=== PATIENT | male | born 1950 | race Caucasian/White ===

== ENCOUNTER 2024-11-13 14:47 | Inpatient (IN) ==
[2024-11-13 15:13] LABS: Basophils # (auto) 0.06 K/uL (0.00-0.20); Basophils % (auto) 0.3 %; Hematocrit (blood only) 24.8 % (42.0-52.0); Hemoglobin 7.5 g/dl (14.0-18.0); Immature Granulocytes # (auto) 0.26 K/uL (0.01-0.20); Immature Granulocytes % (auto) 1.3 %; Lymphocytes # (auto) 0.98 K/uL (1.20-3.40); Lymphocytes % (auto) 4.7 %; Mean Corpuscular Hgb Conc 30.2 g/dL (32.0-36.0); Mean Corpuscular Volume 82.7 fL (80.0-100.0); Mean Platelet Volume 11.1 fL (9.4-12.4); Monocytes # (auto) 1.07 K/uL (0.11-0.59); Monocytes % (auto) 5.2 %; Neutrophils # (auto) 18.08 K/uL (1.40-6.50); Neutrophils % (auto) 87.5 %; Platelet Count 234 K/uL (130-400); RDW Coefficient of Variation 17.2 % (11.5-14.5); RDW Standard Deviation 49.5 fL (36.4-46.3); White Blood Count 20.65 K/ul (4.8-10.8)
[2024-11-13 15:31] LABS: Albumin Globulin Ratio 1.4 (0.9-2); Albumin Level 3.4 gm/dl (3.4-5.0); BUN Creatinine Ratio 33.3 (10-20); Bilirubin,Total 0.7 mg/dl (0.2-1.0); Calcium 8.5 mg/dl (8.6-10.3); Creatinine Clr Calc Pharmacy 88.4 ml/min; Globulin 2.5 gm/dl (2.5-4.0); Potassium 4.2 mmol/L (3.5-5.1); Total Protein 5.9 gm/dl (6.0-8.3)
[2024-11-13 15:37] LABS: Troponin I High Sensitivity 11.3 pg/ml (0-20)
--- NOTE | 2024-11-13 15:44 | Emergency Department Note ---
ED DC CONDITION Conditon at Discharge Condition at Discharge: Fair Impression & Plan Anemia, Pancreatic mass, Liver mass, Acute thrombosis of basilic vein, Weakness ED Provider Note Provider: Logan Hitchcock MD CHIEF COMPLAINT: Referred by HISTORY OF PRESENT ILLNESS: Patient is a 74-year-old gentleman history of type 2 diabetes, CAD with stents, hypertension, recent hospitalization referred here by his doctor for further evaluation. Patient last week when he noticed some worsening shortness of breath. Went to [facility] found to be severely anemic hemoglobin 6 and transfused 2 units of blood. Sent to [facility] for further testing as he was additionally found to have liver mets and a pancreatic mass. No biopsy or treatment is started for this. Outpatient doctor over the last several days has been working to get outpatient biopsy as well as a PET scan ordered. Patient states that he has had some increasing weakness particular today and his legs feel a bit " ". Denies any chest pain or syncope or trauma. Denies abdominal pain. Is on baby aspirin every evening. Noted some soreness in his right arm after IV placement during recent hospitalization had ultrasound last night showing concerns for a blood clot in the basilic vein. Was ordered Lovenox but is not taking that and additionally has not taken any antibiotics. Denies fever. Sent here with concerns for need for anticoagulation with his worsening anemia and mass workup. PAST MEDICAL HISTORY: As noted above MEDICATIONS: Reviewed home medications SOCIAL HISTORY: PHYSICAL EXAM: GENERAL: alert and oriented in no acute distress on stretcher at bedside patient appears slightly fatigued Head: normocephalic and atraumatic EYES: No injection, discharge or icterus. EOMI. NECK: Trachea midline. ENT: Mucous membranes pink and moist. LUNGS: Airway patent. No retraction or tachypnea HEART: Regular rate and rhythm. No chest wall tenderness ABDOMEN: Soft and non-tender, without guarding or rebound. SKIN: Acyanotic, warm, dry, without rashes EXTREMITIES: Without swelling, tenderness or deformity NEUROLOGICAL: No focal deficits. No aphasia. No facial droop or slurred speech. Ambulatory. EK bpm. Normal sinus rhythm with a right bundle branch block. Little artifact but no clear acute ST segment elevation or depression QTc 493. CONTINUOUS CARDIAC MONITORING: was ordered and showed a heart rate of 60s to 80s bpm in sinus rhythm right bundle branch block Patient's laboratory studies and imaging reviewed. Differential includes Infection, GI bleed, oncological process, dehydration, metabolic abnormality, hypo/hyperglycemia, electrolyte disturbance, anemia, hypoxia, cardiac sources, neurologic, as well as other pathologies. IMPRESSION/MEDICAL DECISION MAKING: Patient appears little bit fatigued but not in any distress. Vitals noted without severe abnormality. Denies any significant black or bloody stools but maybe a bit dark. Has been on iron supplementation. Reviewed prior epic notes with assistance of case management. Patient with the large superficial vein thrombus recommended for anticoagulation but obvious concerns given his recent need for transfusion. Repeat blood count here does show slightly worse anemia 7.5 today with recent hemoglobin of 8 yesterday. Patient declined rectal exam. No vomiting reported. Denies significant abdominal pain. Review of notes indicate he has a pancreatic mass with portal vein thrombus as well as liver mets. They have been trying to get him outpatient IR biopsy of the liver either here on the or [facility] the end of this week. Patient consented for blood transfusion. Discussed the patient findings. Discussed with pharmacy here and will start on low-dose no bolus heparin drip for some mild anticoagulation given the superficial thrombus finding would be careful avoid aggressive anticoagulation in case there is some component of GI bleed. States he has no occult normal colonoscopies in the past. Denies significant heartburn but given a dose of Protonix here. 1 Unit of packed red blood cells ordered given his cardiac history and symptomatic anemia with fatigue symptoms. Did reach out discussed with radiology Dr. Kennedy who states they would need to fully review the case; his recent aspirin usage as this could pose some delay. Again the heparin will be started and could be turned off if needed. Discussed with the hospitalist team who is in agreement this plan. DIAGNOSIS: Anemia, pancreatic/liver masses, right basilic vein thrombus, weakness DISPOSITION: Hospitalist will evaluate Critical Care I have personally spent 45 minutes of critical care time in the direct management of this patient. This includes bedside care, interpretation of diagnostic studies, and testing, discussion with consultants, patient, and family members, and other required patient management activities. These 45 minutes is in excess of all separately billable procedures. Past Med/Surg History Problem List (Updated 11/13/24 @ 17:59 by Logan Hitchcock M.D.) Weakness (Acute) Acute thrombosis of basilic vein (Acute) Deep vein thrombosis (DVT) of right upper extremity Anemia (Acute) Liver mass (Acute) Pancreatic mass (Acute) Hypertension Coronary artery disease Dyslipidemia Type 2 diabetes mellitus Medical History (Updated 11/13/24 @ 17:59 by Logan Hitchcock M.D.) Myocardial infarction 12/16/2017 Surgical History (Updated 11/13/24 @ 17:28 by ADIEL Serrano) H/O colonoscopy 2014, 2019, 2022 History of coronary angioplasty with insertion of stent 08/12/2010 Family History (Updated 11/13/24 @ 17:28 by ADIEL Serrano) Father Cancer Mother Cancer Social History (Updated 11/13/24 @ 17:57 by ADIEL Serrano) Smoking Status: Never smoker Hx Alcohol Use: Yes Hx Substance Use: No Preferred Language: Setswana Current Living Situation: Spouse Feels Safe at Home: Yes Allergies Allergies Allergy/AdvReac Type Severity Reaction Status Date / Time metformin AdvReac Severe SEVERE Verified 11/13/24 17:04 DIARRHEA Home Meds Home Medications Medication Instructions Recorded Confirmed amlodipine 5 mg tablet 5 mg PO 11/13/24 11/13/24 aspirin 81 mg tablet,delayed 81 mg PO 11/13/24 11/13/24 release (Ecotrin Low Strength) atorvastatin 80 mg tablet 80 mg PO 11/13/24 11/13/24 cephalexin 500 mg capsule 500 mg PO TID 11/13/24 11/13/24 empagliflozin 25 mg tablet 25 mg PO 11/13/24 11/13/24 (Jardiance) ferrous sulfate 325 mg (65 mg 325 mg PO [facility] 11/13/24 11/13/24 iron) tablet insulin glargine-yfgn 100 unit/mL 18 unit subcut [facility] 11/13/24 11/13/24 (3 mL) subcutaneous pen isosorbide mononitrate 30 mg 30 mg PO [facility] 11/13/24 11/13/24 tablet,extended release 24 hr losartan 100 mg tablet 100 mg PO [facility] 11/13/24 11/13/24 metoprolol succinate 25 mg 12.5 mg PO [facility] 11/13/24 11/13/24 tablet,extended release 24 hr nitroglycerin 0.4 mg sublingual 0.4 mg sublingual DIRECTED PRN 11/13/24 11/13/24 tablet (Nitrostat) Chest Pain repaglinide 2 mg tablet 4 mg PO AC 11/13/24 11/13/24 Results & Data (ED) Vital Signs Vital Signs - 24 hr 11/13/24 14:49 11/13/24 15:15 11/13/24 15:15 Temperature 36.5 C Temperature Source Temporal Artery Scan Pulse Rate 85 Pulse Rate [Apical] Pulse Rhythm Pulse Strength Normal Respiratory Rate 17 Respiratory Effort / Characteristics Non-Labored Spontaneous Respiratory Depth Normal Respiratory Pattern Regular Blood Pressure 128/72 Blood Pressure [Right Arm] Blood Pressure Mean 90 Blood Pressure Mean [Right Arm] Blood Pressure Position Sitting Blood Pressure Position [Right Arm] Pulse Oximetry 100 Oxygen Delivery Method Room Air Room Air Room Air Sepsis Recent Fever Within 48 Hours No Sepsis New/Unexplained Change in Mental Status No Sepsis Action Taken by Nursing No Action Required 11/13/24 15:31 11/13/24 16:48 11/13/24 18:00 Temperature Temperature Source Pulse Rate 82 Pulse Rate [Apical] 68 69 Pulse Rhythm Pulse Strength Respiratory Rate 18 19 Respiratory Effort / Characteristics Respiratory Depth Respiratory Pattern Blood Pressure Blood Pressure [Right Arm] 128/68 129/66 Blood Pressure Mean Blood Pressure Mean [Right Arm] 88 87 Blood Pressure Position Blood Pressure Position [Right Arm] Semi-fowlers Pulse Oximetry 98 98 Oxygen Delivery Method Room Air Sepsis Recent Fever Within 48 Hours Sepsis New/Unexplained Change in Mental Status Sepsis Action Taken by Nursing 11/13/24 18:29 11/13/24 18:45 11/13/24 19:00 Temperature 36.9 C 36.8 C 36.8 C Temperature Source Oral Oral Oral Pulse Rate 71 70 79 Pulse Rate [Apical] Pulse Rhythm Regular Pulse Strength Normal Respiratory Rate 22 14 19 Respiratory Effort / Characteristics Respiratory Depth Respiratory Pattern Blood Pressure 136/68 133/88 126/58 L Blood Pressure [Right Arm] Blood Pressure Mean 90 103 80 Blood Pressure Mean [Right Arm] Blood Pressure Position Semi-fowlers Sitting Blood Pressure Position [Right Arm] Pulse Oximetry 97 100 98 Oxygen Delivery Method Sepsis Recent Fever Within 48 Hours Sepsis New/Unexplained Change in Mental Status Sepsis Action Taken by Nursing Laboratory Data 11/13/24 15:00 11/13/24 15:00 Lab Results 11/13/24 11/13/24 11/13/24 Range/Units 15:00 16:24 16:49 WBC 20.65 H (4.8-10.8) K/ul RBC 3.00 L (4.70-6.10) M/uL Hgb 7.5 L (14.0-18.0) g/dl Hct 24.8 L (42.0-52.0) % MCV 82.7 (80.0-100.0) fL MCH 25.0 (25.0-34.0) pg MCHC 30.2 L (32.0-36.0) g/dL RDW Std Deviation 49.5 H (36.4-46.3) fL RDW Coeff of Sascha 17.2 H (11.5-14.5) % Plt Count 234 (130-400) K/uL MPV 11.1 (9.4-12.4) fL Immature Gran % (Auto) 1.3 % Neut % (Auto) 87.5 % Lymph % (Auto) 4.7 % [place] % (Auto) 5.2 % Eos % (Auto) 1.0 % Baso % (Auto) 0.3 % Neut # (Auto) 18.08 H (1.40-6.50) K/uL Lymph # (Auto) 0.98 L (1.20-3.40) K/uL [place] # (Auto) 1.07 H (0.11-0.59) K/uL Eos # (Auto) 0.20 (0.00-0.50) K/uL Baso # (Auto) 0.06 (0.00-0.20) K/uL Immature Gran # (Auto) 0.26 H (0.01-0.20) K/uL Polychromasia 2+ Anisocytosis Present PT 11.3 (9.0-12.0) Seconds INR 1.0 (0.9-1.1) APTT 24 (21-31) Seconds PTT Ratio 0.9 Sodium 133 L (136-145) mmol/L Potassium 4.2 (3.5-5.1) mmol/L Chloride 102 (98-107) mmol/L Carbon Dioxide 21 (21-32) mmol/L Anion Gap 10 (3-11) BUN 26 H (6-23) mg/dl Creatinine 0.78 (0.6-1.4) mg/dl Est Cr Clr Drug Dosing 88.4 ml/min eGFR 94.75 BUN/Creatinine Ratio 33.3 H (10-20) Glucose 243 H (70-99(Fasting)) mg/dl POC Glucose (70-99) mg/dl Calcium 8.5 L (8.6-10.3) mg/dl Iron 24 L (35-175) mcg/dl TIBC 333 (250-450) mcg/dl Transferrin 238 (200-360) mg/dl Transferrin % Sat 7 L (20-50) % Ferritin 77.5 (8-388) ng/ml Total Bilirubin 0.7 (0.2-1.0) mg/dl AST 65 H (13-39) U/L ALT 60 H (7-52) U/L Alkaline Phosphatase 470 H (34-104) U/L Troponin I High Sens 11.3 (0-20) pg/ml Total Protein 5.9 L (6.0-8.3) gm/dl Albumin 3.4 (3.4-5.0) gm/dl Globulin 2.5 (2.5-4.0) gm/dl Albumin/Globulin Ratio 1.4 (0.9-2) Lipase 31 (11-82) U/L TSH 1.793 (0.300-4.500) uIu/ml Blood Type O Positive Blood Type Recheck O Positive Antibody Screen NEGATIVE Crossmatch See Detail 11/13/24 Range/Units 19:05 WBC (4.8-10.8) K/ul RBC (4.70-6.10) M/uL Hgb (14.0-18.0) g/dl Hct (42.0-52.0) % MCV (80.0-100.0) fL MCH (25.0-34.0) pg MCHC (32.0-36.0) g/dL RDW Std Deviation (36.4-46.3) fL RDW Coeff of Sascha (11.5-14.5) % Plt Count (130-400) K/uL MPV (9.4-12.4) fL Immature Gran % (Auto) % Neut % (Auto) % Lymph % (Auto) % [place] % (Auto) % Eos % (Auto) % Baso % (Auto) % Neut # (Auto) (1.40-6.50) K/uL Lymph # (Auto) (1.20-3.40) K/uL [place] # (Auto) (0.11-0.59) K/uL Eos # (Auto) (0.00-0.50) K/uL Baso # (Auto) (0.00-0.20) K/uL Immature Gran # (Auto) (0.01-0.20) K/uL Polychromasia Anisocytosis PT (9.0-12.0) Seconds INR (0.9-1.1) APTT (21-31) Seconds PTT Ratio Sodium (136-145) mmol/L Potassium (3.5-5.1) mmol/L Chloride (98-107) mmol/L Carbon Dioxide (21-32) mmol/L Anion Gap (3-11) BUN (6-23) mg/dl Creatinine (0.6-1.4) mg/dl Est Cr Clr Drug Dosing ml/min eGFR BUN/Creatinine Ratio (10-20) Glucose (70-99(Fasting)) mg/dl POC Glucose 137 H (70-99) mg/dl Calcium (8.6-10.3) mg/dl Iron (35-175) mcg/dl TIBC (250-450) mcg/dl Transferrin (200-360) mg/dl Transferrin % Sat (20-50) % Ferritin (8-388) ng/ml Total Bilirubin (0.2-1.0) mg/dl AST (13-39) U/L ALT (7-52) U/L Alkaline Phosphatase (34-104) U/L Troponin I High Sens (0-20) pg/ml Total Protein (6.0-8.3) gm/dl Albumin (3.4-5.0) gm/dl Globulin (2.5-4.0) gm/dl Albumin/Globulin Ratio (0.9-2) Lipase (11-82) U/L TSH (0.300-4.500) uIu/ml Blood Type Blood Type Recheck Antibody Screen Crossmatch Administered Medications Heparin Sodium/Dextrose (Heparin 60122 Unit/500 Ml D5w) 25,000 units in 500 mls @ 18 mls/hr IV .Q24H [facility]; Protocol Stop: 12/13/24 18:14 Last Admin: 11/13/24 18:53 Dose: 900 units/hr, 18 mls/hr Documented By: EDWIN Co-signed By: DANUTA Discontinued Medications Heparin Sodium/Dextrose (Heparin Iv Adult Wt-Based Low-Dose *No* Initial Bolus Protocol) 1 each IV ONE STA; Protocol Stop: 11/13/24 17:54 Last Admin: 11/13/24 19:08 Dose: Not Given Documented By: DANUTA Pantoprazole Sodium 80 mg/ (Dextrose) 120 mls @ 480 mls/hr IV ONE STA Stop: 11/13/24 16:32 Last Infusion: 11/13/24 17:22 Dose: Infused Documented By: Admin: 11/13/24 17:00 Dose: 480 mls/hr Documented By: DANUTA Imaging Data Radiologist's Impression: Chest X-Ray 11/13/24 14:53 INDICATION: Chest pain. TECHNIQUE: Frontal radiograph of the chest. COMPARISON: None. FINDINGS: The cardiomediastinal silhouette and pulmonary vasculature appear within normal limits. No infiltrate, pleural effusion or pneumothorax. No acute osseous abnormality evident. IMPRESSION: No acute cardiopulmonary process. Electronically signed by Raz Rand 11-13-2024 5:20 PM Discharge Plan Visit Data Chief Complaint: Referred by Doctor Stated Complaint: REFERRED BY DOC ED Provider: Logan Hitchcock Discharge Problem: Anemia, Pancreatic mass, Liver mass, Acute thrombosis of basilic vein, Weakness Patient Disposition: Admitted As Inpatient Condition: Fair Forms Stand Alone Forms: My [facility] Prescriptions Prescriptions: No Action atorvastatin 80 mg tablet 80 mg PO HS repaglinide 2 mg tablet 4 mg PO AC isosorbide mononitrate 30 mg tablet extended release 24 hr 30 mg PO QAM amlodipine 5 mg tablet 5 mg PO HS aspirin [Ecotrin Low Strength] 81 mg Tablet,Delayed Release (Dr/Ec) 81 mg PO HS cephalexin 500 mg capsule 500 mg PO TID Rx Instructions: STARTED 11/13/24 FOR 10 DAYS ferrous sulfate 325 mg (65 mg iron) tablet 325 mg PO QAM nitroglycerin [Nitrostat] 0.4 mg Tablet, Sublingual 0.4 mg sublingual DIRECTED MDD 3 TABS. PRN (Reason: Chest Pain) metoprolol succinate 25 mg tablet extended release 24 hr 12.5 mg PO QAM losartan 100 mg tablet 100 mg PO QAM Jardiance 25 mg tablet 25 mg PO HS insulin glargine-yfgn 100 unit/mL (3 mL) insulin pen 18 unit SUBCUT QAM Referrals Referrals: Linnea Booker MD [Primary Care Provider] - Discharge Problem: Anemia Qualifiers: Anemia type: other cause Acute thrombosis of basilic vein Qualifiers: Laterality: right Qualified Code(s): I82.611 - Acute embolism and thrombosis of superficial veins of right upper extremity
[2024-11-13 15:59] LABS: Partial Thromboplastin Ratio 0.9; Partial Thromboplastin Time 24 Seconds (21-31); Prothrombin Time 11.3 Seconds (9.0-12.0)
[2024-11-13 16:06] LABS: Ferritin 77.5 ng/ml (8-388)
[2024-11-13 16:14] LABS: Anisocytosis Present; Polychromasia 2+
[2024-11-13] MEDS ORDERED: SODIUM CHLORIDE 0.9% 100 ML IV PRN (16:18)
[2024-11-13] MEDS: PANTOprazole 80 MG in DEXTROSE 5% 100 ML IV STA (17:00)
--- NOTE | 2024-11-13 17:20 | XRay Report ---
INDICATION: Chest pain. TECHNIQUE: Frontal radiograph of the chest. COMPARISON: None. FINDINGS: The cardiomediastinal silhouette and pulmonary vasculature appear within normal limits. No infiltrate, pleural effusion or pneumothorax. No acute osseous abnormality evident. IMPRESSION: No acute cardiopulmonary process. Electronically signed by Raz Rand 11-13-2024 5:20 PM
--- NOTE | 2024-11-13 17:39 | History & Physical Report ---
Date of Service November 13, 2024 Assessment & Plan (1) Anemia: (2) Weakness: (3) Pancreatic mass: (4) Liver mass: (5) Deep vein thrombosis (DVT) of right upper extremity: (6) Type 2 diabetes mellitus: (7) Hypertension: (8) Dyslipidemia: (9) Coronary artery disease: Plan 74 year old male with PMH significant for DMII, dyslipidemia, HTN, CAD s/p stent, recently discovered pancreatic and liver masses, and anemia who presented to the ED today by referral of his PCP. 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 Patient was scheduled for admission at [facility] on 11/[address] Hitchcock discussed with Niraj Kennedy of Radiology regarding coordination of liver biopsy while inpatient Recommend contacting Alfred Campo tomorrow am and discuss scheduling and also timing of IV heparin discontinuation DVT RUE Outpatient duplex revealed DVT of right basilic vein Prescribed lovenox outpatient but patient never picked it up Started on IV heparin in ED Recommend contacting Alfred Campo tomorrow am regarding biopsy and timing of Heparin dc DMII A1C 8.1 in September 2024 On Jardiance, repaglinide, insulin glargine at home - holding while inpt SSI insulin while inpt CAD s/p stent Hypertension Dyslipidemia Continue imdur, losartan, metoprolol, atorvastatin Holding baby aspirin pending possible liver biopsy tomorrow Patient holding amlodipine due to low BPs at home Continue to hold amlodipine Monitor BPs and consider restarting amlodipine if elevated DVT Prophylaxis: IV Heparin *hold in am in preparation for liver biopsy Code Status: FULL CODE - As per discussion at bedside with the patient. PCP: Dr Linnea Booker Disposition: admit to [facility] Patient seen in collaboration with Dr Martinez. Please see addendum. I spent a total of 75 minutes coordinating, documenting and providing care for this patient excluding time spent in the performance of separately billed services or time spent by another provider/QHP. Admission and Anticipated Discharge Date Admission Date: 11/13/2024 History of Present Illness Chief Complaint: weakness Primary Care Provider: Linnea Booker MD 74 year old male with PMH significant for DMII, dyslipidemia, HTN, CAD s/p stent, recently discovered pancreatic and liver masses, and anemia who presented to the ED today by referral of his PCP. Patient reports that he recently started feeling tired and dizzy with exertion, which prompted him to seek care at [facility]. 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 He was also found to have a hemoglobin of 6.1 for which he received two units of PRBCs and an iron infusion. He then had follow up with his PCP on 11/12 where he was ordered follow up bloodwork, a PET scan, and venous duplex of RUE for irritation at a previous peripheral IV site. His bloodwork revealed a drop in hemoglobin to 8 and his duplex revealed a DVT in his RUE for which he was prescribed lovenox. Patient's went to pickup driver the lovenox today but the pharmacy did not have enough and at the same time, he was informed that he was scheduled for a liver biopsy at [facility] on 11/15 and was instructed to hold anticoagulation. Due to his hemoglobin and feeling weak/t ired, his PCP recommended he seek care in our ED. Patient notes that his symptoms came on rather quickly over the last few weeks as he was previously active with walking and golfing. He endorses a weight loss of 10 lbs over 7 months but that is complicated by use of Trulicity. He also reports dull abdominal pain, notable when he drinks coffee in the morning. He denies headaches, fevers, chills, chest pain, N/V/D, hematuria, hematochezia. He reports he gets a colonoscopy every 3 years due to polyps, but notes that none have come back problematic. He notes that his father had lung cancer (was a smoker) and mother had breast and bone cancer. Allergies Allergy/AdvReac Type Severity Reaction Status Date / Time metformin AdvReac Severe SEVERE Verified 11/13/24 17:04 DIARRHEA Home Medications Medication Instructions Recorded Confirmed Type amlodipine 5 mg tablet 5 mg PO HS 11/13/24 11/13/24 History aspirin 81 mg tablet,delayed 81 mg PO HS 11/13/24 11/13/24 History release (Ecotrin Low Strength) atorvastatin 80 mg tablet 80 mg PO HS 11/13/24 11/13/24 History cephalexin 500 mg capsule 500 mg PO TID 11/13/24 11/13/24 History empagliflozin 25 mg tablet 25 mg PO HS 11/13/24 11/13/24 History (Jardiance) ferrous sulfate 325 mg (65 mg 325 mg PO [facility] 11/13/24 11/13/24 History iron) tablet insulin glargine-yfgn 100 unit/mL 18 unit subcut [facility] 11/13/24 11/13/24 History (3 mL) subcutaneous pen isosorbide mononitrate 30 mg 30 mg PO [facility] 11/13/24 11/13/24 History tablet,extended release 24 hr losartan 100 mg tablet 100 mg PO [facility] 11/13/24 11/13/24 History metoprolol succinate 25 mg 12.5 mg PO [facility] 11/13/24 11/13/24 History tablet,extended release 24 hr nitroglycerin 0.4 mg sublingual 0.4 mg sublingual DIRECTED PRN 11/13/24 11/13/24 History tablet (Nitrostat) Chest Pain repaglinide 2 mg tablet 4 mg PO AC 11/13/24 11/13/24 History Past Med/Surg History Problem List (Updated 11/13/24 @ 17:59 by Logan Hitchcock M.D.) Weakness (Acute) Acute thrombosis of basilic vein (Acute) Deep vein thrombosis (DVT) of right upper extremity Anemia (Acute) Liver mass (Acute) Pancreatic mass (Acute) Hypertension Coronary artery disease Dyslipidemia Type 2 diabetes mellitus Medical History (Updated 11/13/24 @ 17:59 by Logan Hitchcock M.D.) Myocardial infarction 12/16/2017 Surgical History (Updated 11/13/24 @ 17:28 by ADIEL Serrano) H/O colonoscopy 2014, 2019, 2022 History of coronary angioplasty with insertion of stent 08/12/2010 Family History (Updated 11/13/24 @ 17:28 by ADIEL Serrano) Father Cancer Mother Cancer Social History (Updated 11/13/24 @ 17:57 by ADIEL Serrano) Smoking Status: Never smoker Hx Alcohol Use: Yes Hx Substance Use: No Preferred Language: Sinhala Current Living Situation: Spouse Feels Safe at Home: Yes Review of Systems Review of Systems: All systems reviewed & are unremarkable except as noted in HPI & below Physical Exam Physical Exam: refer to exam by Dr Martinez Results & Data Results & Data Vital Signs (Past 12 Hours) Vital Signs Temp Pulse Resp BP Pulse Ox O2 Del Method 11/13/24 15:31 82 11/13/24 15:15 Room Air 11/13/24 15:15 Room Air 11/13/24 14:49 36.5 C 85 17 128/72 100 Room Air Laboratory Results Short CBC 11/13/24 Range/Units 15:00 WBC 20.65 H (4.8-10.8) K/ul Hgb 7.5 L (14.0-18.0) g/dl Hct 24.8 L (42.0-52.0) % Plt Count 234 (130-400) K/uL BMP 11/13/24 15:00 Sodium 133 L Potassium 4.2 Chloride 102 Carbon Dioxide 21 BUN 26 H Creatinine 0.78 Glucose 243 H Calcium 8.5 L Liver Function 11/13/24 Range/Units 15:00 Total Bilirubin 0.7 (0.2-1.0) mg/dl AST 65 H (13-39) U/L ALT 60 H (7-52) U/L Alkaline Phosphatase 470 H (34-104) U/L Albumin 3.4 (3.4-5.0) gm/dl I have independently reviewed and interpreted patient's admitting labs including CBC, CMP, PTT, PT/INR, iron studies, and troponin. Diagnostic Findings Chest X-Ray 11/13/24 14:53 INDICATION: Chest pain. TECHNIQUE: Frontal radiograph of the chest. COMPARISON: None. FINDINGS: The cardiomediastinal silhouette and pulmonary vasculature appear within normal limits. No infiltrate, pleural effusion or pneumothorax. No acute osseous abnormality evident. IMPRESSION: No acute cardiopulmonary process. Electronically signed by Raz Rand 11-13-2024 5:20 PM Supervising Physician Co-Signing Physician Notes Patient is a 74-year-old male with history of coronary artery disease, diabetes mellitus, hypertension, hyperlipidemia who was recently diagnosed to have pancreatic mass and splenic vein thrombosis concerning for metastatic disease presents with history of dyspnea on exertion, generalized weakness and tiredness and dizziness. Patient had blood transfusions while admitted at [facility] but despite blood transfusions hemoglobin dropped on outpatient blood work and PCP suggested further evaluation and sent to ED. Patient was recently started on iron tablets and he denies any obvious bleeding issues. He admits to weight loss of about 10 pounds in 7 months. He reports family history of cancer. Please review HPI for complete details of presentation. I personally reviewed blood work and imaging studies. Noted WBC elevated at 20.65, hemoglobin 7.5, hematocrit 24.8, sodium 133, glucose 243, calcium 8.5, iron 24, mild transaminitis AST 65, ALT 60, alkaline phosphatase 470, normal TSH. Chest x-ray showed no acute process. Doppler study on 11/12/2024 showed right basilic vein thrombus. EKG showed normal sinus rhythm, right bundle branch block, QTc 493. Physical Exam: Vitals signs as noted above General Appearance:Moderately built and nourished, no apparent distress Head: normocephalic, Atraumatic Eyes: normal inspection, EOMI,+ pallor Neck: supple, Trachea midline Respiratory/Chest: Normal breath sounds, CTA, No accessory muscle use Cardiovascular: S1, S2, No murmur Abdomen/GI:Soft, Non tender, Bowel sounds present Extremities/Musculoskeletal:normal inspection, no edema , R elbow mildly tender, swollen at IV site Neurologic/Psych:AAOX3, grossly no focal neurological deficits Skin: normal color, warm Symptomatic anemia Right upper extremity deep vein thrombosis Splenic vein thrombosis Pancreatic mass concern for liver mets Mild hyponatremia Leukocytosis ? Secondary to malignancy Transaminitis likely due to mets Received 1 unit PRBC in ED Will also order IV Venofer Monitor H&H and transfuse as needed PT OT, fall precautions IR to perform biopsy tomorrow Continue IV heparin for now Monitor LFTs Consider to hold statin if LFTs continues to rise Anemia workup pending I personally interviewed and examined the patient at bedside. I have reviewed the advanced practitioner's documentation on the date of service referred in note and agree with plan. Patient's care is coordinated with Luh CHUN. Please refer to the documentation above for details of patient's presentation and for discussion of other issues. I spent a total of32 minutes coordinating, documenting, and providing care for this patient excluding time spent in the performance of separately billed services or time spent by another provider/QHP.
[2024-11-13] MEDS ORDERED: PHARMACY GLYCEMIC MGMT CONSULT PRN (18:29)
[2024-11-13] MEDS ORDERED: GLUCOSE 10 TAB/TUBE PO PRN (18:29)
[2024-11-13] MEDS ORDERED: GLUCAGON FOR INJ 1 MG VIAL SQ PRN (18:29)
[2024-11-13] MEDS ORDERED: DEXTROSE 50% 50 ML SYRINGE IV PRN (18:29)
[2024-11-13] MEDS ORDERED: GLUCOSE 40% GEL 15 GM TUBE PO PRN (18:29)
[2024-11-13] MEDS ORDERED: CARBOHYDRATES FOR HYPOGLYCEMIA PO PRN (18:29)
[2024-11-13 18:45] LABS: Thyroid Stimulating Hormone 1.793 uIu/ml (0.300-4.500)
[2024-11-13] MEDS: HEPARIN 25000 UNIT/500 ML D5W 25,000 UNITS/500 ML BAG IV SCH (18:53)
[2024-11-13] MEDS: Heparin IV Adult Wt-Based Low-Dose *NO* INITIAL Bolus Protocol IV STA (19:08)
[2024-11-13] MEDS: IRON SUCROSE 300 MG in SODIUM CHLORIDE 0.9% 250 ML IV ONE (20:38)
[2024-11-13] MEDS ORDERED: POLYETHYLENE (MIRALAX) 17 GM PACK PO PRN (21:36)
[2024-11-13] MEDS ORDERED: ACETAMINOPHEN 325 MG TAB PO PRN (21:36)
[2024-11-13] MEDS: ATORVASTATIN 40 MG TAB PO SCH (21:56)
[2024-11-13] MEDS: INSULIN ASPART PER UNIT CHARGE SC SCH (22:02)
[2024-11-13 22:55] LABS: Hematocrit (blood only) 22.7 % (42.0-52.0); Hemoglobin 7.2 g/dl (14.0-18.0)
[2024-11-13 23:37] LABS: Folate (Folic Acid),Ser orPlas 8.41 ng/ml (>5.38)
--- OUTSIDE RECORDS SUMMARY | 2024-11-14 00:56 | External Medical Summary | Summary of Care ---
Author Name Unknown Organization [facility] Address [address] [place] [address] Phone [phone] Care Team Providers Care Remelt Worker Name Role Phone Linnea Booker MD Primary Care Provider Reason for Visit * Reason Comments Dosage Adjustment Via Phone (anticoag Cl inic) * Evaluate & Treat - Unlimited Visits (Within 3 days (urgent)) - Authorized Specialty Diagnoses / Procedures Referred By Contac t Referred To Contact [facility] / Pharmacy Diagnoses Superficial vein thrombosis Elevated CA 19-9 level Pancreatic mass Liver masses [facility]jana Martini DO [address] [facility] [place] [address] Phone: tel: fax: Referral ID Status Reason Start Date Expiration Date Visits Requested Visits Authorized [id number] Authorized Specialty Services Required 11/13/2024 05/12/[phone] Encounter Details Date Type Department Care Team (Latest Contact Info) Description 11/13/2024 5:10 PM EDT Anticoagulation Pharmacy, [facility] [address] [facility] [place] [address] [facility] [place] [address] [facility] [place] [address] Pancreatic mass*; Liver masses; Superficial vein thrombosis; Elevated CA 19-9 level Allergies Active Allergy Reactions Criticality Noted Date Comments Metformin Diarrhea 05/18/2011 documented as of this encounter (statuses as of 11/13/2024) Medications ECOTRIN LOW STRENGTH 81 MG PO TBEC One pill by mouth once a day Active isosorbide mononitrate SA (IMDUR) 30 MG TB24 Take 1 Tablet by mouth in the morning. 7 Active Descubre.la Ultra 2 w/Device Kit Use to test blood sugars three times daily. E11.9 1 Kit 1 Active Silvergate PharmaceuticalsToAccuradio UltraSoft Lancets Use to test blood sugars three times daily. E11.9 300 Each 3 1 Active Metoprolol Succinate ER 25 MG Oral Tablet Extended Release 24 Hour (toPROL XL) Take 0.5 Tablets by mouth in the morning. 1 Active Dexcom G7 SensorIndications: Type 2 diabetes mellitus with hemoglobin A1c goal of less than 7.0% (HCC) Use to read blood glucose. Change every 10 days. DX: E11.9 3 Each 11 4 Active amLODIPine Besylate 2.5 MG Oral Tablet (Norvasc)Indicatio ns:HTN, goal below 140/90 TAKE ONE TABLET BY MOUTH EVERY DAY 90 Tablet 3 4 Active Descubre.la Ultra In Vitro Strip (Glucose Blood)Indications: Type 2 diabetes mellitus with hemoglobin A1c goal of less than 7.0% (HCC) USE TO TEST THREE TIMES A DAY 300 Strip 3 4 Active Zoster Vac Recomb Adjuvanted 50 MCG/0.5ML Intramuscular Suspension Reconstituted (Shingrix)Indicati ons:Need for shingles vaccine Inject 0.5 mL into a large muscle now and repeat dose in 60 to 180 days 1 Each 1 4 Active Pen [place] 32G X 4 MMIndications:Type 2 diabetes mellitus with hemoglobin A1c goal of less than 7.0% (HCC) Use as directed daily. To inject Basaglar. DX: E11.9 100 Each 3 4 Active BD Pen Needle Mini U/F 31G X 5 MM (Insulin Pen Needle)Indications :Type 2 diabetes mellitus with hemoglobin A1c goal of less than 7.0% (HCC) For use with long-acting insulin pen daily. 100 Each 4 4 Active Nitroglycerin 0.4 MG Sublingual Tablet Sublingual (Nitrostat)Indicat ions:Atheroscleros is of [place] coronary artery of tanana heart without angina pectoris PLACE 1 TABLET UNDER THE TONGUE IF NEEDED FOR CHEST PAIN. MAY REPEAT EVERY 5 MINUTES UP TO 3 TIMES. IF CHEST PAIN CONTINUES, CALL [phone] Tablet 2 4 Active Jardiance 25 MG Oral Tablet (Empagliflozin)Ind ications:Type 2 diabetes mellitus with hemoglobin A1c goal of less than 7.0% (HCC) TAKE ONE TABLET BY MOUTH EVERY DAY 90 Tablet 3 4 Active Repaglinide 2 MG Oral Tablet (Prandin)Indicatio ns:Type 2 diabetes mellitus with hemoglobin A1c goal of less than 7.0% (HCC) Take 2 Tablets by mouth in the morning and 2 Tablets at noon and 2 Tablets in the evening. Take before meals. 540 Tablet 3 5 Active Insulin Glargine-yfgn 100 UNIT/ML Subcutaneous Solution Pen-injectorIndica tions:Type 2 diabetes mellitus with hemoglobin A1c goal of less than 7.0% (HCC) Inject 18 Units under the skin daily. 30 mL 3 5 Active Atorvastatin Calcium 80 MG Oral Tablet (Lipitor)Indicatio ns:Dyslipidemia, goal LDL below 100 TAKE ONE TABLET BY MOUTH EVERY DAY 90 Tablet 3 5 Active Losartan Potassium 100 MG Oral Tablet (Cozaar)Indication s:Atherosclerosis of [place] coronary artery of tan[place] heart without angina pectoris,HTN, goal below 140/90 TAKE ONE TABLET BY MOUTH EVERY MORNING 90 Tablet 3 5 Active Ferrous Sulfate 325 (65 Fe) MG Oral Tablet Delayed Release Take 1 Tablet by mouth in the morning and 1 Tablet at noon and 1 Tablet in the evening. Take with meals. Active Cephalexin 500 MG Oral Capsule (Keflex)Indication s:Skin irritation,Complic ation of vein following a procedure, not elsewhere classified, initial encounter Take 1 Capsule by mouth in the morning and 1 Capsule at noon and 1 Capsule before bedtime. Do all this for 10 days. 30 Capsule 5 11/23/19 25 Active Enoxaparin Sodium 40 MG/0.4ML Injection Solution Prefilled Syringe (Lovenox) Inject 40 mg under the skin in the morning. For 45 days. 18 mL Active documented as of this encounter (statuses as of 11/13/2024) Active Problems Problem Noted Date Diagnosed Date Pancreatic mass 11/13/2024 Liver masses 11/13/2024 Superficial vein thrombosis 11/13/2024 Elevated CA 19-9 level 11/13/2024 Colon polyps 03/16/2023 Overview (03/16/2023): Two removed in 2022. Repeat 3 yrs. 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 Type 2 diabetes mellitus wit h hemoglobin A1c goal of less than 7.0% 05/08/2009 Overview (11/04/2015): Per Diabetes Taxonomy. ICD-10 update of inactive term documented as of this encounter (statuses as of 11/13/2024) Resolved Problems Problem Noted Date Diagnosed Date Resolved Date AMI (acute myocardial infarction) 01/25/2018 05/29/2018 HTN, GOAL BELOW 130/80 08/06/200903/02 Overview (08/06/2009): Per HTN Taxonomy. Type 2 diabetes mellitus wit h hemoglobin A1c goal of less than 7.0% 11/04/2006 05/08/2009 Overview (11/04/2015): Per Diabetes Taxonomy. ICD-10 update of inactive term ADVANCE DIRECTIVE INFORMATION 01/13/2005 12/30/2016 Overview (01/13/2005): booklet offered PURE HYPERCHOLESTEROLEM 10/18/200206/10 Overview (06/19/2009): Per Lipid Taxonomy. HTN, goal below 140/90 10/18/200208/06 Overview (08/06/2009): Per HTN Taxonomy. documented as of this encounter (statuses as of 11/13/2024) Immunizations Name Administration Dates Next Due COVID-19 mRNA, LNP-s, No Pre serve, 2-Dose Series (Moderna) 09/10/2020,08/13/2020 COVID-19, MRNA-LNP, PF, 30 M CG/0.3 mL, 12 YRS AND ABOVE, IM (Garpun-Comirnaty) 04/01/2023 COVID-19, mRNA, LNP-s, PF, B ooster, 100mcg/0.5mg (Moderna) 10/16/2021,05/06/2021 Covid-19, Mrna, Lnp-s, Pf, B ivalent, 50 Mcg, IM, 12 yrs and above (Moderna) 04/30/2022 Pneumococcal Conjugate Vacc, 13 Valent (Prevnar) 01/25/2018 Pneumococcal Polysaccharide PPV23 (Pneumovax) 02/21/2019,11/04/2006 Season Influenza, Quad, PF, Adjuvanted, 65+ Yrs, IM (FLUAD) 05/27/2020 Seasonal Influenza Vac., MDV , IM, 0.5 mL (Fluzone) 06/04/2014,07/16/2013,07/14/2012,05/18,08/12/2010,03/27/2009,05/16/2008 ,06/08/2007 Seasonal Influenza, High Dos e, Trivalent, PF, IM (Fluzone HD) 03/14/2024 Seasonal Influenza, PF, 6 M & above, IM , (FluLaval or Fluzone) 05/29/2018,05/06/2017 Seasonal Influenza, Quadriva lent Hd (Fluzone Hd) 06/11/2022,06/12/2021 Seasonal Influenza, Quadriva lent, No Preserve, IM 04/01/2016,08/07/2015 Seasonal Influenza, Trivalen t, Adjuvanted, 65+ YRS, PF, (Fluad) 06/21/2019 TDAP, Age 7 and older, IM (Adacel) 03/14/2024, Varicella Zoster Vaccine Celso lt (Zostavax) 11/11/2015 documented as of this encounter Social History Tobacco Use Types Packs/Day Years Used Date Smoking Tobacco: Never Smokeless Tobacco: Never Comments:Occasional cigar Alcohol Use Standard Drinks/Week Comments Yes 0 (1 standard drink = 0.6 oz pur e alcohol) Ocassional beer PHQ-2 Answer Date Recorded PHQ Adult Total Score 0 2024 Hunger Vital Sign Answer Date Recorded Within the past 12 months, y ou worried that your food would run out before you got the money to buy more. Never true 10/04/19 25 Within the past 12 months, t he food you bought just didn't last and you didn't have money to get more. Never true 2024 Childcare Answer Date Recorded Do you feel overwhelmed with taking care of a child, family member or friend? No 2024 Does your family need help f inding childcare? (Household - for ages 0-17 years) Not on file 2024 Clothing Answer Date Recorded Have you been unable to get clothing when it was really needed? No 2024 Is your family able to get c lothes or diapers when needed? (Household - for ages 0-17 years) Not on file 2024 Personal Safety Answer Date Recorded Do you feel unsafe or have concerns for your saf ety? No 2024 Do you have concerns for you r family's safety? (Household - for ages 0-17 years) Not on file 2024 Utilities Answer Date Recorded Do you have trouble paying y our heating, water, or electric bill? No 2024 Is your family able to pay t he heat, water, or electric bill? (Household - for ages 0-17 years) Not on file 2024 Does your family have access to good internet? (Household - for ages 0-17 years) Not on file 2024 Employment Status Answer Date Recorded Are you unemployed or without regular income? No 2024 Does the household have a re gular source of income? (Household - for ages 0-17 years) Not on file 2024 Social Connections Answer Date Recorded How often do you feel lonely or isolated from th ose around you? Never 2024 Financial Resource Strain Answer Date R ecorded Do you have any trouble payi ng for your medications, or do you think you might in the future? Yes 2024 Does your family have troubl e paying for medicine? (Household - for ages 0-17 years) Not on file 2024 Transportation Needs Answer Date Record ed Do you have trouble getting a ride to medical visits or work? (Adult - for ages 18 years and over) Not on file 2024 Does your family have a hard time getting a ride to doctors visits? (Household - for ages 0-17 years) Not on file 2024 Has lack of transportation k ept you from medical appointments, meetings, work, or from getting things needed for daily living? Check all that apply. No 2024 Do you (or your family) have trouble finding or paying for a ride (transportation)? (Household - for ages 0-17 years) Not on file 2024 Housing Stability Answer Date Recorded Do you currently live in a s helter or have no steady place to sleep at night? No 2024 Do you think you are at risk of becoming homeless? (Adult - for ages 18 years and over) Not on file 2024 Does your family worry about paying for your home or becoming homeless? (Household - for ages 0-17 years) Not on file 0 2024 Are you homeless or worried that you might be in the future? No 2024 Are you (or your family) maikel eless or worried that you might be in the future? (Household - for ages 0-17 years) Not on file Food Insecurity Answer Date Recorded Do you need food for this week? No 03/11/2024 Are you able to get enough f ood for your family? (Household - for ages 0-17 years) Not on file 03/11/2024 Does your family need food t his week? (Household - for ages 0-17 years) Not on file 03/11/2024 Do you always have enough fo od for your family? (Household - for ages 0-17 years) Not on file 03/11/2024 Food Insecurity Answer Date Recorded Within the past 12 months, y ou worried that your food would run out before you got the money to buy more. Never true 10/04/19 25 Within the past 12 months, t he food you bought just didn't last and you didn't have money to get more. Never true 2024 Do you need food for this week? No 2024 Sex and Gender Information Value Date Recorded Sex Assigned at Male 02/21/2019 10:03 AM EDT Legal Sex Male 6:00 AM EST Gender Identity Male 02/21/2019 10:03 AM EDT Sexual Orientation Straight 02/25/2023 9: 46 AM EDT Sexual Orientation Choose not to disclose 2022 9:46 AM EDT Occupation Industry Job Start Date Job End Date Banker Not on file Not on file Not on file documented as of this encounter Last Filed Vital Signs Vital Sign Reading Time Taken Comments Blood Pressure - - Pulse - - Temperature - - Respiratory Rate - - Oxygen Saturation - - Inhaled Oxygen Concentration - - Weight - - Height 177.8 cm (5' 10") 11/13/2024 9:27 AM EDT Body Mass Index - - documented in this encounter Progress Notes * Keyona Medina, [facility] - 11/13/2024 9:28 AM EDT 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 Recommending prophylaxis dose of lovenox 40 mg daily for 45 days at this time. Patient Phone Numbers Spoke to patient via phone. Patient is agreeable to lovenox start. Prescribed lovenox 40 mg daily x45 days to [facility] in [place]. Patient given verbal instructions to inject, already usinginsulin. Patient notes feels comfortable doing this. Reviewed side effects with patient. [facility] will follow up in 1 week for status check. Keyona Medina, Pharm D, BCACP Clinical Pharmacist 11/13/2024, 9:36 AM documented in this encounter Plan of Treatment Upcoming Encounters Date Type Department Care Team (Late st Contact Info) Description 11/20/2024 5:10 PM EDT Anticoagulation Pharmacy, [facility] [address] [place] [address] [facility] [place] [address] [place] [address] 11/21/2024 11:45 AM EDT [facility] [address] [place] [phone] 11/30/2024 10:20 AM EDT Office Visit Family Practice [facility] [address] [place] [address] Linnea Booker MD [address] [place] [address] 04/05/2025 8:20 AM EDT Office Visit Family [facility] [address] [place] [address] Linnea Booker MD [address] [place] [address] Scheduled Procedures Name Priority Associated Diagnoses Date/Ti me COLONOSCOPY FLEXIBLE PROXIMA L DIAGNOSTIC Recall History of colonic polyps Health Maintenance Due Date Last Done Comments Cologuard 1997 Fecal Occult Blood Test 1997 Sigmoidoscopy 1997 Zoster Vaccines (2 of 3) 01/06/2016 11/11/2015 Adult Wellness Visit 2018 Diabetic Eye Exam 03/07/2025 03/07/2024, , 03/07/2024, Additional history exists Diabetic Foot Exam 03/14/2025 03/14/2024, 0 03/09/2023, 12/11/2021, Additional history exists HbA1c 04/05/2025 2024, 090 10/2023, 11/16/2023, Additional history exists Albumin/Creatinine Ratio 2025 025, 07/25/2023, 12/11/2021, Additional history exists Depression Screening 2025 2024 GFR 11/12/2025 11/12/2024, 10/11, 11/06/2024, Additional history exists Colonoscopy 03/16/2026 03/16/2023, 12/2022, 08/20/2019, Additional history exists Colorectal Cancer Screening 03/16/2026 DTap/Tdap Vaccines (3 - Td or Tdap) 03/14/2034 03/14/2024, 01/11/2008 Pneumococcal Vaccine: 50+ Years Completed 02/21/2019, 01/25/2018, 11/04/2006 Influenza Vaccine (FLU shot) Completed 03/14/2024, 06/11/2022, 06/12/2021, Additional history exists COVID-19 Vaccine Discontinued 04/04/2024, , 04/30/2022, Additional history exists HPV (Gardasil) Vaccine Aged Out No lo nger eligible based on patient's age to complete this topic Hepatitis B Vaccine Aged Out No longe r eligible based on patient's age to complete this topic MENINGOCOCCAL (MENACTRA/MENVEO) Aged Out No longer eligible based on patient's age to complete this topic Meningitis B Vaccine (Bexsero/Trumemba) Aged Out No longer eligible based on patient's age to complete this topic documented as of this encounter Medical Devices Not on filedocumented as of this encounter Visit Diagnoses Diagnosis Pancreatic mass- Primary Unspecified disease of pancreas Liver masses Unspecified disorder of liver Superficial vein thrombosis Acute venous embolism and thrombosis of other specified veins Elevated CA 19-9 level Other abnormal tumor markers documented in this encounter Care Teams Remelt Worker Relationship Specialty Start Date End Date Linnea Booker MD [address] [place] [address] PCP - General Internal Medicine 04/28/21 documented as of this encounter
--- OUTSIDE RECORDS SUMMARY | 2024-11-14 00:56 | External Medical Summary | Summary of Care ---
Author Name Unknown Organization [facility] Address [address] [place] [address] Phone [phone] Care Team Providers Care Candy Cutter Machine Name Role Phone Linnea Booker MD Primary Care Provider Encounter Details Date Type Department Care Team (Late st Contact Info) Description 11/06/2024 Orders Only Family Practice [facility] [address] [place] [address] Linnea Booker MD [address] [place] [address] Allergies Active Allergy Reactions Criticality Noted Date Comments Metformin Diarrhea 05/18/2011 documented as of this encounter (statuses as of 11/13/2024) Medications ECOTRIN LOW STRENGTH 81 MG PO TBEC One pill by mouth once a day Active isosorbide mononitrate SA (IMDUR) 30 MG TB24 Take 1 Tablet by mouth in the morning. 7 Active OneTouch Ultra 2 w/Device Kit Use to test blood sugars three times daily. E11.9 1 Kit 1 Active OneTouch UltraSoft Lancets Use to test blood sugars [...] EVERY DAY 90 Tablet 3 4 Active OneTouch Ultra In Vitro Strip (Glucose Blood)Indications: Type [...] days 1 Each 1 4 Active Pen [place] 32G X 4 MMIndications:Type 2 diabetes mellitus [...] Sublingual Tablet Sublingual (Nitrostat)Indicat ions:Atheroscleros is of [place] coronary artery of [place] heart without angina pectoris PLACE 1 TABLET [...] 100 MG Oral Tablet (Cozaar)Indication s:Atherosclerosis of [place] coronary artery of [place] heart without angina pectoris,HTN, goal below 140/90 TAKE ONE TABLET BY MOUTH EVERY MORNING 90 Tablet 3 5 Active documented as of this encounter (statuses as of 11/13/2024) Active Problems Problem Noted Date Diagnosed Date Colon polyps 03/16/2023 Overview (03/16/2023): Two removed in 2022. Repeat 3 yrs. 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 Coronary atherosclerosis of [place] coronary donell ry 08/12/2010 Overview (08/12/2010): Right [...] CG/0.3 mL, 12 YRS AND ABOVE, IM (PFIZER-Comirnaty) 04/01/2023 COVID-19, mRNA, LNP-s, PF, B ooster, [...] 2024 Does the household have a re lar source of income? (Household - for ages [...] on file documented as of this encounter Plan of Treatment Upcoming Encounters Date Type Department Care Team (Late st Contact Info) Description 04/05/2025 8:20 AM EDT Office Visit Family Practice [facility] [address] [place] [address] Linnea Booker MD [address] [place] [address] Scheduled Procedures Name Priority Associated Diagnoses Date/Ti [...] Depression Screening 2025 2024 GFR 11/12/2025 11/12/2024, 3 , 11/06/2024, Additional history exists Colonoscopy 03/16/2026 03/16/2023, 09/0 12/2022, 08/20/2019, Additional history exists Colorectal Cancer [...] Not on filedocumented as of this encounter Procedures Procedure Name Priority Date/Time Associated Diagnosis Comments RADIOLOGY EXAM - CT (IMAGES ONLY, NO REPORT) Routine 11/06/2024 1:20 PM EDT documented in this encounter Results * RADIOLOGY EXAM - CT (IMAGES ONLY, NO REPORT) (11/06/2024 1:20 PM EDT) 11/06/2024 1:18 PM EDT Narrative 11/12/2024 4:15 PM EDT This is an imaging study not interpreted or resulted by a [facility] or [facility] contracted radiologist. us Linnea Booker MD RAD CT Final Result documented in this encounter Care Teams Candy Cutter Machine Relationship Specialty Start Date End Date Linnea Booker MD [address] [facility] [place] [address] PCP - General Internal Medicine 04/28/21 documented as of this encounter
--- OUTSIDE RECORDS SUMMARY | 2024-11-14 00:56 | External Medical Summary | Summary of Care ---
Author Name Unknown Organization [facility] Address [address] [place] [address] Phone [phone] Care Team Providers Care Health/Safety Job Titles Name Role Phone Linnea Booker MD Primary Care Provider Reason for Referral * Precert (Within 10 days (routine)) - Authorized Specialty Diagnoses / Procedures Referred By Ammy cifuentes Referred To Contact Radiology Diagnoses Anemia, unspecified type Pancreatic mass Liver masses Cancer, metastatic to liver (HCC) Procedures PET CT WHOLE BODY FDG Anjana Posada DO [address] [place] [address] Phone: tel: fax: Referral ID Status Reason Start Date Expiration Date V isits Requested Visits Authorized [id number] Authorized 11/12/2024 999 999 Reason for Visit * Reason Onset Date Comments Emergency Department Pt seen in ER for dizziness and then transferred to [facility]. Was told to be seen by PCP or any physician today. He also has red area on inside of the Rt arm from IV that is still very sore and wants it looked at. Hospital Follow-Up 11/12/2024 Encounter Details Date Type Department Care Team (Late st Contact Info) Description 11/12/2024 1:20 PM EDT Office Visit [facility] [address] [facility] [place] [address] Anjana Posada, DO [address] [place] [address] Hospital discharge follow-up*; Anemia, unspecified type; Transaminitis; Pancreatic mass; Liver masses; Cancer, metastatic to liver (HCC); Skin irritation; Complication of vein following a procedure, not elsewhere classified, initial encounter; Suspected deep vein thrombosis Allergies Active Allergy Reactions Criticality Noted Date Comments Metformin Diarrhea 05/18/2011 documented as of this encounter (statuses as of 11/12/2024) Medications ECOTRIN LOW STRENGTH 81 MG PO TBEC One pill by mouth once a day Active isosorbide mononitrate SA (IMDUR) 30 MG TB24 Take 1 Tablet by mouth in the morning. 7 Active Via6 Ultra 2 w/Device Kit Use to test blood sugars three times daily. E11.9 1 Kit 1 Active Via6 UltraSoft Lancets Use to test blood sugars [...] EVERY DAY 90 Tablet 3 4 Active Via6 Ultra In Vitro Strip (Glucose Blood)Indications: Type [...] days 1 Each 1 4 Active [place] 32G X 4 MMIndications:Type 2 diabetes mellitus [...] Sublingual Tablet Sublingual (Nitrostat)Indicat ions:Atheroscleros is of [place] coronary artery of [place] heart without angina pectoris PLACE 1 TABLET [...] 100 MG Oral Tablet (Cozaar)Indication s:Atherosclerosis of [place] coronary artery of [place] heart without angina pectoris,HTN, goal below 140/90 [...] days. 30 Capsule 5 11/23/19 25 Active documented as of this encounter (statuses as of 11/12/2024) Active Problems Problem Noted Date Diagnosed Date Colon polyps 03/16/2023 Overview (03/16/2023): Two removed in 2022. Repeat 3 yrs. 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 Coronary atherosclerosis of [place] coronary donell ry 08/12/2010 Overview (08/12/2010): Right [...] as of this encounter (statuses as of 11/12/2024) Resolved Problems Problem Noted Date Diagnosed Date [...] as of this encounter (statuses as of 11/12/2024) Immunizations Name Administration Dates Next Due COVID-19 mRNA, LNP-s, No Pre serve, 2-Dose Series (Moderna) 09/10/2020,08/13/2020 COVID-19, MRNA-LNP, PF, 30 M CG/0.3 mL, 12 YRS AND ABOVE, IM (GiveGab-Comirnaty) 04/01/2023 COVID-19, mRNA, LNP-s, PF, B ooster, [...] Date Smoking Tobacco: Never Smokeless Tobacco: Never Tobacco Cessation:Counseling Given: Not Answered Comments:Occasional cigar Alcohol Use Standard Drinks/Week Comments [...] Sign Reading Time Taken Comments Blood Pressure 98/40 11/12/2024 1:28 PM EDT Pulse 107 11/12/2024 1:28 PM EDT Temperature 36.7 °C (98 °F) 11/12/2024 1:28 PM EDT Respiratory Rate 16 11/12/2024 1:28 PM EDT Oxygen Saturation 96% 11/12/2024 1:28 PM EDT Inhaled Oxygen Concentration - - Weight 72.6 kg (160 lb) 11/12/2024 1:28 PM EDT Height - - Body Mass Index 22.96 03/14/2024 7:57 AM EDT documented in this encounter Progress Notes * Anjana Posada, - 11/12/2024 1:25 PM EDT Subjective: Florentino Gonzalez is a 74 year old male. Chief Complaint Patient presents with Emergency Department Pt seen in ER for dizziness and then transferred to [facility]. Was told to be seen by PCP or any physician today. He also has red area on inside of the Rt arm from IV that is still very sore and wants it looked at. Hospital Follow-Up There are no exam notes on file for this visit. 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 I spoke with PCP - she states that pt could get bx done at [facility] this week. BP noted low - recheck also low - will get nurse check for BP and check home monitor. Pt states that home BP was 140s systolic. 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 Via6 Ultra 2 w/Device Kit Use to test blood sugars three times daily. E11.9 1 Kit 0 Metoprolol Succinate ER 25 MG Oral Tablet Extended Release 24 Hour (toPROL XL) Take 0.5 Tablets by mouth in the morning. Specialists On Call G7 Sensor Use to read blood glucose. Change every 10 days. DX: E11.9 3 Each 11 amLODIPine Besylate 2.5 MG Oral Tablet (Norvasc) TAKE ONE TABLET BY MOUTH EVERY DAY 90 Tablet 3 MotistaTouch Ultra In Vitro Strip (Glucose Blood) USE TO TEST THREE TIMES A DAY 300 Strip 3 [place] 32G X 4 MM Use as directed daily. To inject Basaglar. DX: E11.9 100 Each 3 BD Pen Needle Mini U/F 31G X 5 MM (Insulin Pen Needle) For use with long-acting insulin pen daily. 100 Each 4 Jardiance 25 MG Oral Tablet (Empagliflozin) TAKE ONE TABLET BY MOUTH EVERY DAY 90 Tablet 3 Repaglinide 2 MG Oral Tablet (Prandin) Take 2 Tablets by mouth in the morning and 2 Tablets at noonand 2 Tablets in the evening. Take before meals. 540 Tablet 3 Insulin Glargine-yfgn 100 UNIT/ML Subcutaneous Solution Pen-injector Inject 18 Units under the skindaily. 30 mL 3 Atorvastatin Calcium 80 MG Oral Tablet (Lipitor) TAKE ONE TABLET BY MOUTH EVERY DAY 90 Tablet 3 Losartan Potassium 100 MG Oral Tablet (Cozaar) TAKE ONE TABLET BY MOUTH EVERY MORNING 90 Tablet 3 Ferrous Sulfate 325 (65 Fe) MG Oral Tablet Delayed Release Take 1 Tablet by mouth in the morning and 1 Tablet at noon and 1 Tablet in the evening. Take with meals. Cephalexin 500 MG Oral Capsule (Keflex) Take 1 Capsule by mouth in the morning and 1 Capsule at noon and 1 Capsule before bedtime. Do all this for 10 days. 30 Capsule 0 OneTouch UltraSoft Lancets Use to test blood sugars three times daily. E11.9 300 Each 3 Zoster Vac Recomb Adjuvanted 50 MCG/0.5ML Intramuscular Suspension Reconstituted (Shingrix) Inject 0.5 mL into a large muscle now and repeat dose in 60 to 180 days 1 Each 1 Nitroglycerin 0.4 MG Sublingual Tablet Sublingual (Nitrostat) PLACE 1 TABLET UNDER THE TONGUE IF NEEDED FOR CHEST PAIN. MAY REPEAT EVERY 5 MINUTES UP TO 3 TIMES. IF CHEST PAIN CONTINUES, CALL [phone] Tablet 2 No current facility-administered medications for this visit. 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 [place] (myocardial infarction) (HCC) 12/16/2017 99% occlusion, same artery as 08/12/2010 Mixed dyslipidemia OLD MYOCARDIAL INFARCT- Inferior 08/12/2010 Past Surgical History: Procedure Laterality Date COLONOSCOPY 02/2005 normal (Dr. Guerrero) COLONOSCOPY, DIAGNOSTIC (RECTUM) 04/17/2015 adenomatous polyps, diverticulosis, repeat 3 yrs/COLONOSCOPY FLEXIBLE PROXIMAL DIAGNOSTIC performedby Crow Correia MD at ENDOSCOPY [facility] COLONOSCOPY, DIAGNOSTIC (RECTUM) 08/20/2019 adenomatous polyps, diverticulosis, repeat 3 yrs/COLONOSCOPY FLEXIBLE PROXIMAL DIAGNOSTIC performedby Crow Correia MD at ENDOSCOPY [facility] COLONOSCOPY, DIAGNOSTIC (RECTUM) 03/16/2023 diverticulosis/hemorrhoids/biopsies show adenomatous and serrated adenomatous polyps/recall 3 years/COLONOSCOPY FLEXIBLE PROXIMAL DIAGNOSTIC performed by Crow Correia MD at ENDOSCOPY [facility] OTHER foot surgery age 20 REMOVE TONSILS & ADENOIDS, UNDER 12 Review of patient's allergies indicates: Allergen Reactions Metformin Diarrhea Family History Problem Relation Name Age of Onset Cancer Mother Breast Cancer Father ? lung Family Status Relation Status Mo Alive Breast CA Fa Alive ? lung cancer Social History Socioeconomic History Marital status: Spouse name: Antonietta Number of children: 2 Years of education: Not on file Highest education level: Not on file Occupational History Occupation: [employer] Comment: [employer] Tobacco Use Smoking status: Never Smokeless tobacco: Never Tobacco comments: Occasional cigar Substance and Sexual Activity Alcohol use: Yes Comment: Ocassional beer Drug use: No Sexual activity: Yes Partners: Female Other Topics Concern Service No Blood Transfusions No Caffeine Concern Yes Comment: 3 cups coffee in AM Occupational Exposure Not Asked Hobby Hazards Not Asked Sleep Concern No Stress Concern No Weight Concern Not Asked Special Diet Not Asked Back Care Not Asked Exercise Not Asked Bike Helmet Not Asked Seat Belt Not Asked Self-Exams Not Asked Social History Narrative Not on file Social Needs Financial Resource Strain: High Risk (2024) Financial Resource Strain Do you have any trouble paying for your medications, or do you think you might in the future? (Adult - for ages 18 years and over): Yes Does your family have trouble paying for medicine? (Household - for ages 0-17 years): Not on file Food Insecurity: No Food Insecurity (2024) Food Insecurity Worried About Running Out of Food in the Last Year: Never true Ran Out of Food in the Last Year: Never true Do you need food for this week? (Adult - for ages 18 years and over): No Transportation Needs: No Transportation Needs (2024) Transportation Needs Do you have trouble getting a ride to medical visits or work? (Adult - for ages 18 years and over):Not on file Does your family have a hard time getting a ride to doctors’ visits? (Household - for ages 0-17 years): Not on file Has lack of transportation kept you from medical appointments, meetings, work, or from getting things needed for daily living? Check all that apply. (Adult - for ages 18 years and over): No Do you (or your family) have trouble finding or paying for a ride (transportation)? (Household - for ages 0-17 years): Not on file Social Connections: Socially Integrated (2024) Social Connections How often do you feel lonely or isolated from those around you? (Adult - for ages 18 years and over): Never Housing Stability: Low Risk (2024) Housing Stability Do you currently live in a [place] or have no steady place to sleep at night? (Adult - for ages 18 years and over): No Do you think you are at risk of becoming homeless? (Adult - for ages 18 years and over): Not on file Does your family worry about paying for your home or becoming homeless? (Household - for ages 0-17 years): Not on file Are you homeless or worried that you might be in the future? (Adult - for ages 18 years and over): No Are you (or your family) homeless or worried that you might be in the future? (Household - for ages0-17 years): Not on file Review of Systems: As per HPI all other ROS negative. Wt Readings from Last 3 Encounters: 11/12/24 160 lb (72.6 kg) 10/03/24 168 lb 9.6 oz (76.5 kg) 03/14/24 166 lb 12.8 oz (75.7 kg) Results for orders placed or performed in visit on 11/08/24 CHEMISTRY-OUTSIDE Result Value Ref Range Not all results display below - see scan for full detail CREATININE 0.64 (A) 0.70 - 1.30 MG/DL EGFR >90 >=60 ML/MIN POTASSIUM 4.1 3.5 - 5.1 MMOL/L GLUCOSE 108 70 - 110 MG/DL HOURS FASTING TRIGLYCERIDES-OUTSIDE LAB CHOLESTEROL-OUTSIDE LAB HDL-OUTSIDE LAB CHOL/HDL RATIO-OUTSIDE LAB LDL (CALCULATED)-OUTSIDE LAB LDL (DIRECT MEASURE)-OUTSIDE LAB HEMOGLOBIN, N3Z-[facility] PHOSPHORUS-OUTSIDE LAB PTH-OUTSIDE LAB MICROALBUMIN RATIO-OUTSIDE LAB PROTEIN, UA-OUTSIDE LAB HGB 8.2 (A) 13.5 - 18.0 GM/DL OBJECTIVE: Physical Exam: BP 98/40 | Pulse 107 | Temp 98 °F (36.7 °C) (Tympanic) | Resp 16 | Wt 160 lb (72.6 kg) | SpO2 96%| BMI 22.96 kg/m² | BSA 1.89 m² General: alert, healthy, and no distress Heart: regular rate & rhythm, no murmur, and no gallops Lungs: lungs clear to auscultation Abdomen: abdomen soft, non-tender, normal bowel sounds, and no masses or organomegaly Extremities: no joint deformities, effusion, or inflammation, no edema Skin: mild jaundice Hospital discharge follow-up (Primary) - DISCH MED RECON CUR MED LIS Anemia, unspecified type - CBC WITH WBC DIFFERENTIAL; Future; Expected date: 11/12/2024 - COMPREHENSIVE METABOLIC PANEL; Future; Expected date: 11/12/2024 - PET CT WHOLE BODY FDG; Future; Expected date: 11/12/2024 Transaminitis - COMPREHENSIVE METABOLIC PANEL; Future; Expected date: 11/12/2024 Pancreatic mass - COMPREHENSIVE METABOLIC PANEL; Future; Expected date: 11/12/2024 - PET CT WHOLE BODY FDG; Future; Expected date: 11/12/2024 Liver masses - COMPREHENSIVE METABOLIC PANEL; Future; Expected date: 11/12/2024 - PET CT WHOLE BODY FDG; Future; Expected date: 11/12/2024 Cancer, metastatic to liver (HCC) - PET CT WHOLE BODY FDG; Future; Expected date: 11/12/2024 Skin irritation - VASC DUPLEX VENOUS UE UNILAT - Cephalexin 500 MG Oral Capsule (Keflex); Take 1 Capsule by mouth in the morning and 1 Capsule at noon and 1 Capsule before bedtime. Do all this for 10 days. Complication of vein following a procedure, not elsewhere classified, initial encounter - VASC DUPLEX VENOUS UE UNILAT - Cephalexin 500 MG Oral Capsule (Keflex); Take 1 Capsule by mouth in the morning and 1 Capsule at noon and 1 Capsule before bedtime. Do all this for 10 days. Anjana Posada DO documented in this encounter Miscellaneous Notes * Addendum Note - Patricia Denney LPN - 11/12/2024 2:56 PM EDTAddended by: PATRICIA DENNEY on: 11/12/2024 02:56 PM Modules accepted: Orders documented in this encounter Plan of Treatment Upcoming Encounters Date Type Department Care Team (Late st Contact Info) Description 04/05/2025 8:20 AM EDT Office Visit Family [facility] [address] [place] [address] Linnea Booker MD [address] [place] [address] Scheduled Orders Name Type Priority Associated Diagnoses Orde r Schedule PET CT WHOLE BODY FDG Medical Imaging Routine Anemia, unspecified type Pancreatic mass Liver masses Cancer, metastatic to liver (HCC) Expected: 11/12/2024, Expires: 12/13/2025 VASC DUPLEX VENOUS UE UNILAT Medical Imaging STAT Complication of vein following a procedure, not elsewhere classified, initial encounter Suspected deep vein thrombosis Ordered: 11/12/2024 Scheduled Procedures Name Priority Associated Diagnoses Date/Ti [...] 12/11/2021, Additional history exists HbA1c 04/05/2025 2024, 09/0 10/2023, 11/16/2023, Additional history exists Albumin/Creatinine Ratio [...] Not on filedocumented as of this encounter Results * (ABNORMAL) COMPREHENSIVE METABOLIC PANEL (11/12/2024 2:31 PM EDT) BUN 26(H) 6 - 20 mg/dL 11/12/2024 3:50 PM EDT [facility] [place] [facility] [facility] CREATININE 0.8 0.6 - 1.2 mg/dL 11/12/2024 3:50 PM EDT [facility] [place] [facility] [facility] EGFR >90 >=60 mL/min 11/12/2024 3:50 PM EDT [facility] [place] [facility] [facility] Comment:eGFR is calculated b ased on the CKD-EPI 2020 equation. SODIUM 137 135 - 146 mmol/L 11/12/2024 3:50 PM EDT [facility] [place] [facility] [facility] POTASSIUM 4.6 3.5 - 5.1 mmol/L 11/12/2024 3:50 PM EDT [facility] CHLORIDE 99 98 - 107 mmol/L 11/12/2024 3:50 PM EDT [facility] CO2 19(L) 22 - 32 mmol/L 11/12/2024 3:50 PM EDT [facility] [place] [facility] ANION GAP 19(H) 7 - 15 mmol/L 11/12/2024 3:50 PM EDT [facility]10 GLUCOSE 222(H) 70 - 120 mg/dL 11/12/2024 3:50 PM EDT [facility] [place] [facility] [facility] Albumin 3.7(L) 3.8 - 5.0 g/dL 11/12/2024 3:50 PM EDT [facility] [place] [facility] [facility] AST 75(H) 10 - 50 U/L 11/12/2024 3:50 PM EDT [facility] [place] [facility] [facility] Alkaline Phosphatase 558(H) 35 - 130 U/L 11/12/2024 3:50 PM EDT [facility]10 Bilirubin, Total 0.5 <=1.2 mg/dL 11/12/2024 3:50 PM EDT [facility] [place] [facility] [facility] CALCIUM 9.4 8.4 - 10.2 mg/dL 11/12/2024 3:50 PM EDT [facility] [place] [facility] Protein 6.0 6.0 - 8.3 g/dL 11/12/2024 3:50 PM EDT [facility] [place] [facility] ALT 76(H) 10 - 50 U/L 11/12/2024 3:50 PM EDT [facility] [place] [facility] Blood Venous blood specimen / Unknown Venipuncture / Unknown 11/12/2024 2:31 PM EDT 11/12/2024 2:31 PM EDT us Anjana Posada DO LAB BLOOD ORDERABLES Final Result [facility] [place] [facility] [place] [address] documented in this encounter Visit Diagnoses Diagnosis Hospital discharge follow-up- Primary Other follow-up examination Anemia, unspecified type Transaminitis Nonspecific elevation of levels of transaminase or lactic acid dehydrogenase (LDH) Pancreatic mass Unspecified disease of pancreas Liver masses Unspecified disorder of liver Cancer, metastatic to liver (HCC) Secondary malignant neoplasm of liver Skin irritation Unspecified disorder of skin and subcutaneous tissue Complication of vein following a procedure, not elsewhere classified, initial encounter Suspected deep vein thrombosis Acute venous embolism and thrombosis of unspecified deep vessels of lower extremity documented in this encounter Care Teams Health/Safety Job Titles Relationship Specialty Start Date End Date Linnea Booker MD [address] [facility] [place] [address] PCP - General Internal Medicine 04/28/21 documented as of this encounter"
--- OUTSIDE RECORDS SUMMARY | 2024-11-14 00:56 | External Medical Summary | Summary of Care ---
Author Name Unknown Organization [facility] Address [address] [place] [address] Phone [phone] Care Team Providers Care Medical Pathology Teacher Name Role Phone Linnea Booker MD Primary Care Provider Encounter Details Date Type Department Care Team (Late st Contact Info) Description 11/06/2024 Orders Only Family Practice [facility] [address] [place] [address] Linnea Booker MD [address] [place] [address] Allergies Active Allergy Reactions Criticality Noted Date [...] days 1 Each 1 4 Active Pen [place] 32G X 4 MMIndications:Type 2 diabetes mellitus [...] Sublingual Tablet Sublingual (Nitrostat)Indicat ions:Atheroscleros is of [place] coronary artery of [place] heart without angina pectoris PLACE 1 TABLET [...] 100 MG Oral Tablet (Cozaar)Indication s:Atherosclerosis of [place] coronary artery of [place] heart without angina pectoris,HTN, goal below 140/90 [...] Per HTN Protocol #27. Coronary atherosclerosis of [place] coronary donell ry 08/12/2010 Overview (08/12/2010): Right [...] 8:20 AM EDT Office Visit Family Practice [facility] [address] [place] [address] Linnea Booker MD [address] [place] [address] Scheduled Procedures Name Priority Associated Diagnoses Date/Ti [...] CT (IMAGES ONLY, NO REPORT) Routine 11/06/2024 2:15 PM EDT documented in this encounter Results * RADIOLOGY EXAM - CT (IMAGES ONLY, NO REPORT) (11/06/2024 2:15 PM EDT) 11/06/2024 2:15 PM EDT Narrative 11/12/2024 4:14 PM EDT This is an imaging study not interpreted or resulted by a [employer] or [employer] contracted radiologist. us Linnea Booker MD RAD CT Final Result documented in this encounter Care Teams Medical Pathology Teacher Relationship Specialty Start Date End Date Linnea Booker MD [address] [facility] [place] [address] PCP - General Internal Medicine 04/28/21 documented as of this encounter
--- OUTSIDE RECORDS SUMMARY | 2024-11-14 00:57 | External Medical Summary ---
Author Name Unknown Address Unknown Organization [id number] - [address] [place] [address] Laboratory Report Ordering Provider Test Date Status SAGE BIRD 11/12/2024 14:31:45 Final Observation Date Value Abnormality Reference (Units ) Status BUN 11/12/2024 14:31:45 26 Above high normal 6-20 (mg/dL) Final Creatinine 11/12/2024 14:31:45 0.8 0.6-1.2 (mg/dL) Final Glomerular filtration rate/1.73 sq M.predicted [Volume Rate/Area] in Serum, Plasma or Blood by Creatinine-based formula (CKD-EPI) 11/12/2024 14:31:45 >90 >=60 (mL/min) Final eGFR is calculated based on the CKD-EPI 2020 equation. Sodium 11/12/2024 14:31:45 137 135-146 (m mol/L) Final Potassium 11/12/2024 14:31:45 4.6 3.5-5.1 (m mol/L) Final Cl 11/12/2024 14:31:45 99 98-107 (mm ol/L) Final CO2 11/12/2024 14:31:45 19 Below low normal 22- 32 (mmol/L) Final Anion gap 11/12/2024 14:31:45 19 Above high normal 7- 15 (mmol/L) Final Glucose 11/12/2024 14:31:45 222 Above high normal 70 -120 (mg/dL) Final Albumin 11/12/2024 14:31:45 3.7 Below low normal 3.8 -5.0 (g/dL) Final AST (Aspartate aminotransferase) 11/12/2024 14:31:45 75 Above high normal 10-50 (U/L) Final Alk Phos 11/12/2024 14:31:45 558 Above high normal 35 -130 (U/L) Final Bilirubin, Total 11/12/2024 14:31:45 0.5 <=1 .2 (mg/dL) Final Calcium 11/12/2024 14:31:45 9.4 8.4-10.2 ( mg/dL) Final Protein 11/12/2024 14:31:45 6.0 6.0-8.3 (g /dL) Final ALT (Alanine aminotransferase) 11/12/2024 14:31:45 76 Above high normal 10-50 (U/L) Final Performing Location [facility] [address] - [address] [facility] [place] [address]
--- OUTSIDE RECORDS SUMMARY | 2024-11-14 00:57 | External Medical Summary | Summary of Care ---
Author Name Unknown Organization [facility] Address [address] [place] [address] Phone [phone] Care Team Providers Care Packer Dried Beef Name Role Phone Linnea Booker MD Primary Care Provider Encounter Details Date Type Department Care Team (Late st Contact Info) Description 11/07/2024 Orders Only Family Practice [facility] [address] [place] [address] Linnea Booker MD [address] [place] [address] Allergies Active Allergy Reactions Criticality Noted Date Comments Metformin Diarrhea 05/18/2011 documented as of this encounter (statuses as of 11/07/2024) Medications ECOTRIN LOW STRENGTH 81 MG PO [...] days 1 Each 1 4 Active Pen [place] 32G X 4 MMIndications:Type 2 diabetes mellitus [...] Sublingual Tablet Sublingual (Nitrostat)Indicat ions:Atheroscleros is of [place] coronary artery of [place] heart without angina pectoris PLACE 1 TABLET [...] 100 MG Oral Tablet (Cozaar)Indication s:Atherosclerosis of [place] coronary artery of [place] heart without angina pectoris,HTN, goal below 140/90 TAKE ONE TABLET BY MOUTH EVERY MORNING 90 Tablet 3 5 Active documented as of this encounter (statuses as of 11/07/2024) Active Problems Problem Noted Date Diagnosed Date Colon polyps 03/16/2023 Overview (03/16/2023): Two removed in 2022. Repeat 3 yrs. 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 Coronary atherosclerosis of [place] coronary donell ry 08/12/2010 Overview (08/12/2010): Right [...] as of this encounter (statuses as of 11/07/2024) Resolved Problems Problem Noted Date Diagnosed Date [...] as of this encounter (statuses as of 11/07/2024) Immunizations Name Administration Dates Next Due COVID-19 [...] Care Team (Late st Contact Info) Description 11/14/2024 8:00 AM EDT Telemedicine Pharmacy, [facility] [place] [address] [place] [address] Pharmac[address], [facility] [address] [place] [address] 04/05/2025 8:20 AM EDT Office Visit Family Practice [facility] [address] [address] Linnea Booker MD [address] [place] [address] Scheduled Procedures Name Priority Associated Diagnoses Date/Ti [...] history exists Depression Screening 2025 2024 GFR 11/06/2025 11/06/2024, 09/09, 03/14/2024, Additional history exists Colonoscopy 03/16/2026 03/16/2023, 090 12/2022, 08/20/2019, Additional history exists Colorectal Cancer [...] Procedure Name Priority Date/Time Associated Diagnosis Comments CHEMISTRY-OUTSIDE Routine 11/06/2024 documented in this encounter Results * (ABNORMAL) CHEMISTRY-OUTSIDE (11/06/2024) Not all results display below - see scan for full detail OUTSIDE LAB (SEE SCANNED REPORT) Comment:SCAN INCLUDES - CBCD , BNP, LIPASE, D-DIMER, CMP, MAGNESIUM, TROPONIN I CREATININE 0.93 0.70 - 1.30 MG/DL OUTSIDE LAB (SEE SCANNED REPORT) EGFR 87 >=60 ML/MIN OUTSIDE LAB (SEE SCANNED REPORT) POTASSIUM 4.2 3.5 - 5.1 MMOL/L OUTSIDE LAB (SEE SCANNED REPORT) GLUCOSE 295(A) 70 - 110 MG/DL OUTSIDE LAB (SEE SCANNED REPORT) HOURS FASTING OUTSID E LAB (SEE SCANNED REPORT) TRIGLYCERIDES-OUT SIDE LAB OUTSIDE LAB (SEE SCANNED REPORT) CHOLESTEROL-OUTSI DE LAB OUTSIDE LAB (SEE SCANNED REPORT) HDL-OUTSIDE LAB OUTS DEXTER LAB (SEE SCANNED REPORT) CHOL/HDL RATIO-OUTSIDE LAB OUTSIDE LA B (SEE SCANNED REPORT) LDL (CALCULATED)-OUTS DEXTER LAB OUTSIDE LAB (SEE SCANNED REPORT) LDL (DIRECT MEASURE)-OUTSIDE LAB OUTSIDE LAB (SEE SCANNED REPORT) HEMOGLOBIN, V6O-MNGIQGY LAB OUTSIDE LAB (SEE SCANNED REPORT) PHOSPHORUS-OUTSID E LAB OUTSIDE LAB (SEE SCANNED REPORT) PTH-OUTSIDE LAB OUTS DEXTER LAB (SEE SCANNED REPORT) MICROALBUMIN RATIO-OUTSIDE LAB OUTSIDE LA B (SEE SCANNED REPORT) PROTEIN, UA-OUTSIDE LAB OUTSIDE LAB (SEE SCANNED REPORT) HGB 7.8(A) 13.5 - 18.0 GM/DL OUTSIDE LAB (SEE SCANNED REPORT) 11/06/2024 Alfredo Chin MD LABORATORY Fi nal Result OUTSIDE LAB (SEE SCANNED REPORT) documented in this encounter Care Teams Packer Dried Beef Relationship Specialty Start Date End Date Linnea Booker MD [address] [place] [address] PCP - General Internal Medicine 04/28/21 documented as of this encounter
--- OUTSIDE RECORDS SUMMARY | 2024-11-14 00:57 | External Medical Summary | Summary of Care ---
Author Name Unknown Organization [facility] Address [address] [place] [address] Phone [phone] Care Team Providers Care Systems Analyst Engineer Name Role Phone Linnea Booker MD Primary Care Provider Reason for Visit * Reason Comments Outpatient Testing Encounter Details Date Type Department Care Team (Late st Contact Info) Description 11/12/2024 2:20 PM EDT Laboratory Laboratory, [facility] [address] [facility] [phone] [facility] [address] [facility] [address] Anemia, unspecified type; Transaminitis; Pancreatic mass; Liver masses Allergies Active Allergy Reactions Criticality Noted Date Comments Metformin Diarrhea 05/18/2011 documented as of this encounter (statuses as of 11/12/2024) Medications ECOTRIN LOW STRENGTH 81 MG PO TBEC One pill by mouth once a day Active isosorbide mononitrate SA (IMDUR) 30 MG TB24 Take 1 Tablet by mouth in the morning. 7 Active BnookiTouch Ultra 2 w/Device Kit Use to test [...] days 1 Each 1 4 Active Pen [place] 32G X 4 MMIndications:Type 2 diabetes mellitus [...] Sublingual Tablet Sublingual (Nitrostat)Indicat ions:Atheroscleros is of [place] coronary artery of [place] heart without angina pectoris PLACE 1 TABLET [...] 100 MG Oral Tablet (Cozaar)Indication s:Atherosclerosis of [place] coronary artery of [place] heart without angina pectoris,HTN, goal below 140/90 [...] Per HTN Protocol #27. Coronary atherosclerosis of [place] coronary donell ry 08/12/2010 Overview (08/12/2010): Right Drug eluting stent Right 100 % occlusion LAD 50 -60 % LAD ANGIOPLASTY WITH CORONARY STENT- RCA Drug leon magallon stent 08/12/2010 OLD MYOCARDIAL INFARCT- Inferior 08/12/2010 [...] No 2024 Does the household have a [facility] [[email or web address] source of income? (Household - for ages [...] EDT Sexual Orientation Choose not to disclose 08/18/ 2023 9:46 AM EDT Occupation Industry Job Start Date Job End Date Banker Not on file Not on file Not on file documented as of this encounter Plan of Treatment Upcoming Encounters Date Type Department Care Team (Late st Contact Info) Description 04/05/2025 8:20 AM EDT Office Visit Family [facility] [address] [place] [address] Linnea Booker MD [address] [place] [address] Scheduled Procedures Name Priority Associated Diagnoses Date/Ti [...] 12/11/2021, Additional history exists HbA1c 04/05/2025 2024, 10/2023, 11/16/2023, Additional history exists Albumin/Creatinine Ratio 2025 025, 07/25/2023, 12/11/2021, Additional history exists Depression Screening 2025 2024 GFR 11/12/2025 11/12/2024, 04/3 , 11/06/2024, Additional history exists Colonoscopy 03/16/2026 03/16/2023, 0 12/2022, 08/20/2019, Additional history exists Colorectal Cancer [...] Procedure Name Priority Date/Time Associated Diagnosis Comments DIFFERENTIAL, AUTOMATED Routine 11/12/2024 2:31 PM EDT Anemia, unspecified type COMPREHENSIVE METABOLIC PANEL Routine 11/12/2024 2:31 PM EDT Anemia, unspecified type Transaminitis Pancreatic mass Liver masses CBC Routine 11/12/2024 2:31 PM EDT Anemia, unspecified type CBC Routine 11/12/2024 2:31 PM EDT Anemia, unspecified type DIFFERENTIAL, TECHNOLOGIST REVIEW Routine 11/12/2024 2:31 PM EDT Anemia, unspecified type documented in this encounter Results * DIFFERENTIAL, TECHNOLOGIST REVIEW (11/12/2024 2:31 PM EDT) Pathologist [facility] NRs 11/12/2024 3:56 PM EDT LABORATORY [facility] 57-10 Blood Venous blood specimen / Unknown Venipuncture / Unknown 11/12/2024 2:31 PM EDT 11/12/2024 2:31 PM EDT us Anjana Martini DO LAB BLOOD ORDERABLES Final Result LABORATORY [facility] [address] [facility] [address] * (ABNORMAL) DIFFERENTIAL, AUTOMATED (11/12/2024 2:31 PM EDT) [facility] WBC 20.15(H) 4.00 - 10.80 K/uL 11/12/2024 3:56 PM EDT LAB[facility]ORY [place] [facility] [facility] Neutrophils % 89.4(H) 40.0 - 75.0 % 11/12/2024 3:56 PM EDT LAB[facility] [place] [facility]10 Lymphocytes % 4.8(L) 18.0 - 42.0 % 11/12/2024 3:56 PM EDT LAB[facility] [place] [facility]10 Monocytes % 5.1 1.0 - 11.0 % 11/12/2024 3:56 PM EDT LAB[facility]ORY [place] [facility]10 Eosinophils % 0.6 0.0 - 6.0 % 11/12/2024 3:56 PM EDT LAB[facility] [place] [facility]10 Basophils % 0.1 0.0 - 2.0 % 11/12/2024 3:56 PM EDT LAB[facility] [place] [facility]10 Absolute Neutrophils 17.99(H) 1.80 - 7.70 K/uL 11/12/2024 3:56 PM EDT LAB[facility] [place] [facility] Absolute Lymphocytes 0.97(L) 1.00 - 4.80 K/ul 11/12/2024 3:56 PM EDT LAB[facility]ORY [place] [facility]10 Absolute Monocytes 1.03 0.00 - 1.10 K/uL 11/12/2024 3:56 PM EDT LAB[facility]ORY [place] [facility]10 Absolute Eosinophils 0.13 0.00 - 0.70 K/uL 11/12/2024 3:56 PM EDT LAB[facility] [place] [facility]10 Absolute Basophils 0.03 0.00 - 0.20 K/uL 11/12/2024 3:56 PM EDT LAB[facility] [place] [facility]10 Blood Venous blood specimen / Unknown Venipuncture / Unknown 11/12/2024 2:31 PM EDT 11/12/2024 2:31 PM EDT Anjana Martini DO LAB BLOOD ORDERABLES Final Result LAB[facility]ATORY [place] [facility] [address] [place] [address] * (ABNORMAL) CBC (11/12/2024 2:31 PM EDT) WBC 20.15(H) 4.00 - 10.80 K/uL 11/12/2024 3:56 PM EDT LAB[facility]ORY [place] [facility] RBC 3.16 4.50 - 5.25 M/uL 11/12/2024 3:56 PM EDT LAB[facility]ORY [place] [facility]10 HGB 8.0(L) 14.0 - 16.8 g/dL 11/12/2024 3:56 PM EDT LAB[facility] [place] [facility] [facility]10 HCT 26.6(L) 40.0 - 48.4 % 11/12/2024 3:56 PM EDT [facility] [place] [facility]10 MCV 84.2 82.0 - 99.5 fL 11/12/2024 3:56 PM EDT [facility] [place] [facility] MCH 25.3 27.0 - 34.0 pg 11/12/2024 3:56 PM EDT LAB[facility] [place] [facility] MCHC 30.1 32.0 - 36.0 g/dL 11/12/2024 3:56 PM EDT LAB[facility] [place] [facility] RDW 17.1 11.5 - 15.5 % 11/12/2024 3:56 PM EDT LAB[facility] [place] [facility]10 PLT 261 140 - 400 K/uL 11/12/2024 3:56 PM EDT LAB[facility] [place] [facility] MPV 11.7 6.6 - 11.1 fL 11/12/2024 3:56 PM EDT LAB[facility] [place] [facility] [facility] Blood Venous blood specimen / Unknown Venipuncture / Unknown 11/12/2024 2:31 PM EDT 11/12/2024 2:31 PM EDT us Anjana Martini DO LAB BLOOD ORDERABLES Final Result LAB[facility]ATORY [place] [facility] [address] [place] [address] * (ABNORMAL) COMPREHENSIVE METABOLIC PANEL (11/12/2024 2:31 PM EDT) BUN 26(H) 6 - 20 mg/dL 11/12/2024 3:50 PM EDT LABORATORY [place] 5710 CREATININE 0.8 0.6 - 1.2 mg/dL 11/12/2024 3:50 PM EDT LABORATORY [place] 5710 EGFR >90 >=60 mL/min 11/12/2024 3:50 PM EDT LABORATORY [place] 5710 Comment:eGFR is calculated b ased on the CKD-EPI 2020 equation. SODIUM 137 135 - 146 mmol/L 11/12/2024 3:50 PM EDT LABORATORY [address] POTASSIUM 4.6 3.5 - 5.1 mmol/L 11/12/2024 3:50 PM EDT LABORATORY [place] [address] CHLORIDE 99 98 - 107 mmol/L 11/12/2024 3:50 PM EDT LABORATORY [place] [address] CO2 19(L) 22 - 32 mmol/L 11/12/2024 3:50 PM EDT LABORATORY [address] ANION GAP 19(H) 7 - 15 mmol/L 11/12/2024 3:50 PM EDT LABORATORY [place] 5710 GLUCOSE 222(H) 70 - 120 mg/dL 11/12/2024 3:50 PM EDT LABORATORY [place] [address] Albumin 3.7(L) 3.8 - 5.0 g/dL 11/12/2024 3:50 PM EDT LABORATORY [place] 5710 AST 75(H) 10 - 50 U/L 11/12/2024 3:50 PM EDT LABORATORY [place] 5710 Alkaline Phosphatase 558(H) 35 - 130 U/L 11/12/2024 3:50 PM EDT LABORATORY [place] 5710 Bilirubin, Total 0.5 <=1.2 mg/dL 11/12/2024 3:50 PM EDT LABORATORY [place] [address] CALCIUM 9.4 8.4 - 10.2 mg/dL 11/12/2024 3:50 PM EDT [facility] Protein 6.0 6.0 - 8.3 g/dL 11/12/2024 3:50 PM EDT LABORATORY [facility] 57-10 ALT 76(H) 10 - 50 U/L 11/12/2024 3:50 PM EDT LABORATORY [facility] 57-10 Blood Venous blood specimen / Unknown Venipuncture / Unknown 11/12/2024 2:31 PM EDT 11/12/2024 2:31 PM EDT Anjana Martini DO LAB BLOOD ORDERABLES Final Result LABORATORY [place]10 [address] [address] documented in this encounter Visit Diagnoses Diagnosis Anemia, unspecified type Transaminitis Nonspecific elevation of levels of transaminase or lactic acid dehydrogenase (LDH) Pancreatic mass Unspecified disease of pancreas Liver masses Unspecified disorder of liver documented in this encounter Care Teams Systems Analyst Engineer Relationship Specialty Start Date End Date Linnea Booker MD [address] [place] [address] PCP - General Internal Medicine 04/28/21 documented as of this encounter
--- OUTSIDE RECORDS SUMMARY | 2024-11-14 00:57 | External Medical Summary | Summary of Care ---
Author Name Unknown Organization [facility] Address [address] [place] [address] Phone [phone] Care Team Providers Care Component Overhaul Operator Name Role Phone Linnea Booker MD Primary Care Provider Encounter Details Date Type Department Care Team (Late Contact Info) Description 11/06/2024 Result Scan Unspecified Department <No scans attached> Allergies Active Allergy Reactions Criticality Noted Date [...] days 1 Each 1 4 Active Pen [place] 32G X 4 MMIndications:Type 2 diabetes mellitus [...] Sublingual Tablet Sublingual (Nitrostat)Indicat ions:Atheroscleros is of [place] coronary artery of [place] heart without angina pectoris PLACE 1 TABLET [...] hemoglobin A1c goal of less than 7.0% ([facility]) Inject 18 Units under the skin daily. 30 mL 3 5 Active Atorvastatin Calcium 80 MG Oral Tablet (Lipitor)Indicatio ns:Dyslipidemia, goal LDL below 100 TAKE ONE TABLET BY MOUTH EVERY DAY 90 Tablet 3 5 Active Losartan Potassium 100 MG Oral Tablet (Cozaar)Indication s:Atherosclerosis of [place] coronary artery of [place] heart without angina pectoris,HTN, goal below 140/90 [...] Per HTN Protocol #27. Coronary atherosclerosis of [place] coronary donell ry 08/12/2010 Overview (08/12/2010): Right [...] 8:20 AM EDT Office Visit Family Practice [facility] [address] [address] Linnea Booker MD [address] [address] Scheduled Procedures Name Priority Associated Diagnoses Date/Ti [...] Name Priority Date/Time Associated Diagnosis Comments RADIOLOGY SCANNED RESULT 11/06/2024 documented in this encounter Results * RADIOLOGY SCANNED RESULT (11/06/2024) 11/06/2024 us No Physician Data Unknown DIAGNOSTIC RADIOLOGY S ERVICES Final Result documented in this encounter Care Teams Component Overhaul Operator Relationship Specialty Start Date End Date Linnea Booker MD [address] [place] [address] PCP - General Internal Medicine 04/28/21 documented as of this encounter
--- OUTSIDE RECORDS SUMMARY | 2024-11-14 00:57 | External Medical Summary ---
Author Name Unknown Address Unknown Organization K0G:LABORATORY [facility] 57-10 - [address] [place] [address] Laboratory Report Ordering Provider Test Date Status SAGE BIRD 11/12/2024 14:31:45 Final Observation Date Value Abnormality Reference (Units ) Status WBC, Total 11/12/2024 14:31:45 20.15 Above high normal 4 .00-10.80 (K/uL) Final RBC 11/12/2024 14:31:45 3.16 4.50-5.25 (M/uL) Final Hemoglobin 11/12/2024 14:31:45 8.0 Below low normal 14 .0-16.8 (g/dL) Final HCT 11/12/2024 14:31:45 26.6 Below low normal 40. 0-48.4 (%) Final MCV 11/12/2024 14:31:45 84.2 82.0-99.5 (fL) Final MCH 11/12/2024 14:31:45 25.3 27.0-34.0 (pg) Final MCHC 11/12/2024 14:31:45 30.1 32.0-36.0 (g/dL) Final RDW 11/12/2024 14:31:45 17.1 11.5-15.5 (%) Final Platelets 11/12/2024 14:31:45 261 140-400 (K /uL) Final MPV 11/12/2024 14:31:45 11.7 6.6-11.1 ( fL) Final Performing Location LABORATORY [facility] 57-1 0 - [address] [place] [address]
--- OUTSIDE RECORDS SUMMARY | 2024-11-14 00:57 | External Medical Summary ---
Author Name Unknown Address Unknown Organization K0G:LABORATORY [facility]10 - [address] [place] [address] Laboratory Report Ordering Provider Test Date Status SAGE BIRD 11/12/2024 14:31:45 Final Observation Date Value Abnormality Reference (Units ) Status Nucleated erythrocytes/100 leukocytes [Ratio] in Blood by Automated count 11/12/2024 14:31:45 Final Performing Location LABORATORY [facility]1 0 - [address] [place] [address]
--- OUTSIDE RECORDS SUMMARY | 2024-11-14 00:57 | External Medical Summary ---
Author Name Unknown Address Unknown Organization [facility] [address] [facility] [address] Laboratory Report Ordering Provider Test Date Status SAGE BIRD 11/12/2024 14:31:45 Final Observation Date Value Abnormality Reference (Units ) Status SYNC LEUKOCYTES IN BLOOD BY AUTOMATED COUNT 11/12/2024 14:31:45 20.15 Above high normal 4.00-10.80 (K/uL) Final Segs 11/12/2024 14:31:45 89.4 Above high normal 40.0-75.0 (%) Final Lymphs % 11/12/2024 14:31:45 4.8 Below low normal 18.0-42.0 (%) Final Monos 11/12/2024 14:31:45 5.1 1.0-11.0 (%) Final Eosinophils 11/12/2024 14:31:45 0.6 0.0-6.0 (%) Final Basos 11/12/2024 14:31:45 0.1 0.0-2.0 (%) Final Absolute Segs 11/12/2024 14:31:45 17.99 Above high normal 1.80-7.70 (K/uL) Final Lymphs, absolute 11/12/2024 14:31:45 0.97 Below low normal 1.00-4.80 (K/ul) Final Monos, Abs 11/12/2024 14:31:45 1.03 0.00-1.10 (K/uL) Final Eos, Abs 11/12/2024 14:31:45 0.13 0.00-0.70 (K/uL) Final Basos, Abs 11/12/2024 14:31:45 0.03 0.00-0.20 (K/uL) Final Performing Location [facility] 0 - [address] [place] [address]
--- OUTSIDE RECORDS SUMMARY | 2024-11-14 00:57 | External Medical Summary | Summary of Care ---
Author Name Unknown Organization [facility] Address [address] [place] [address] Phone [phone] Care Team Providers Care Education Adviser Name Role Phone Linnea Booker MD Primary Care Provider Reason for Referral * Precert (Within 10 days (routine)) - Authorized Specialty Diagnoses / Procedures Referred By Ammy cifuentes Referred To Contact Radiology Diagnoses Anemia, unspecified type Pancreatic mass Liver masses Cancer, metastatic to liver (HCC) Procedures PET CT WHOLE BODY FDG Anjana Posada DO [address] [place] [address] Phone: tel: fax: Referral ID Status Reason Start Date Expiration Date V isits Requested Visits Authorized [id number] Authorized 11/12/2024 999 999 Reason for Visit * Reason Onset Date Comments Emergency Department Pt seen in ER for dizziness and then transferred to [facility]. Was told to be seen by PCP or any physician today. He also has red area on inside of the Rt arm from IV that is still very sore and wants it looked at. Hospital Follow-Up 11/12/2024 Encounter Details Date Type Department Care Team (Late st Contact Info) Description 11/12/2024 1:20 PM EDT Office Visit [facility] [address] [facility] [place] [address] Anjana Posada, DO [address] [place] [address] Hospital discharge follow-up*; Anemia, unspecified type; Transaminitis; [...] by mouth in the morning. 7 Active Getonic Ultra 2 w/Device Kit Use to test blood sugars three times daily. E11.9 1 Kit 1 Active Getonic UltraSoft Lancets Use to test blood sugars [...] EVERY DAY 90 Tablet 3 4 Active Getonic Ultra In Vitro Strip (Glucose Blood)Indications: Type [...] days 1 Each 1 4 Active Pen [place] 32G X 4 MMIndications:Type 2 diabetes mellitus [...] Sublingual Tablet Sublingual (Nitrostat)Indicat ions:Atheroscleros is of [place] coronary artery of [place] heart without angina pectoris PLACE 1 TABLET [...] 100 MG Oral Tablet (Cozaar)Indication s:Atherosclerosis of [place] coronary artery of [place] heart without angina pectoris,HTN, goal below 140/90 [...] Per HTN Protocol #27. Coronary atherosclerosis of [place] coronary donell ry 08/12/2010 Overview (08/12/2010): Right [...] CG/0.3 mL, 12 YRS AND ABOVE, IM (Secondbrain-Comirnaty) 04/01/2023 COVID-19, mRNA, LNP-s, PF, B ooster, [...] ER for dizziness and then transferred to [facility]. 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 I spoke with PCP - she states that pt could get bx done at [facility] this week. 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 Getonic Ultra 2 w/Device Kit Use to test blood sugars three times daily. E11.9 1 Kit 0 Metoprolol Succinate ER 25 MG Oral Tablet Extended Release 24 Hour (toPROL XL) Take 0.5 Tablets by mouth in the morning. [employer] G7 Sensor Use to read blood glucose. Change every 10 days. 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 [place] (myocardial infarction) (HCC) 12/16/2017 99% occlusion, same artery as 08/12/2010 Mixed dyslipidemia OLD MYOCARDIAL INFARCT- Inferior 08/12/2010 Past Surgical History: Procedure Laterality Date COLONOSCOPY 02/2005 normal (Dr. Guerrero) COLONOSCOPY, DIAGNOSTIC (RECTUM) 04/17/2015 adenomatous polyps, diverticulosis, repeat 3 yrs/COLONOSCOPY FLEXIBLE PROXIMAL DIAGNOSTIC performedby Crow Correia MD at ENDOSCOPY [facility] COLONOSCOPY, DIAGNOSTIC (RECTUM) 08/20/2019 adenomatous polyps, diverticulosis, repeat 3 yrs/COLONOSCOPY FLEXIBLE PROXIMAL DIAGNOSTIC performedby Crow Correia MD at ENDOSCOPY [facility] COLONOSCOPY, DIAGNOSTIC (RECTUM) 03/16/2023 diverticulosis/hemorrhoids/biopsies show adenomatous and serrated adenomatous polyps/recall 3 years/COLONOSCOPY FLEXIBLE PROXIMAL DIAGNOSTIC performed by Crow Correia MD at ENDOSCOPY [facility] OTHER foot surgery age 20 REMOVE TONSILS [...] level: Not on file Occupational History Occupation: [employer]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[employer] Tobacco Use Smoking status: Never Smokeless tobacco: [...] Stability Do you currently live in a assisted or have no steady place to sleep [...] (CALCULATED)-OUTSIDE LAB LDL (DIRECT MEASURE)-OUTSIDE LAB HEMOGLOBIN, [id number] LAB PHOSPHORUS-OUTSIDE LAB PTH-OUTSIDE LAB MICROALBUMIN RATIO-OUTSIDE [...] 04/05/2025 8:20 AM EDT Office Visit Family [facility] [address] [place] [address] Linnea Booker MD [address] [place] [address] Scheduled Orders Name Type Priority Associated Diagnoses [...] mmol/L 11/12/2024 3:50 PM EDT LAB[facility]ATORY [facility] 57-10 CHLORIDE 99 98 - 107 mmol/L 11/12/2024 3:50 PM EDT [facility] 57-10 CO2 19(L) 22 - 32 mmol/L 11/12/2024 3:50 PM EDT LAB[facility] [place] 57-10 ANION GAP 19(H) 7 - 15 mmol/L 11/12/2024 3:50 PM EDT [facility] 57-10 GLUCOSE 222(H) 70 - 120 mg/dL 11/12/2024 3:50 PM EDT LABORATORY [place] 57-10 Albumin 3.7(L) 3.8 - 5.0 g/dL 11/12/2024 3:50 PM EDT LABORATORY [place] 57-10 AST 75(H) 10 - 50 U/L 11/12/2024 3:50 PM EDT LABORATORY [place] 57-10 Alkaline Phosphatase 558(H) 35 - 130 U/L 11/12/2024 3:50 PM EDT [facility] 57-10 Bilirubin, Total 0.5 <=1.2 mg/dL 11/12/2024 3:50 PM EDT LABORATORY [place] 57-10 CALCIUM 9.4 8.4 - 10.2 mg/dL 11/12/2024 3:50 PM EDT LABORATORY [place] 57-10 Protein 6.0 6.0 - 8.3 g/dL 11/12/2024 3:50 PM EDT LABORATORY [place] 57-10 ALT 76(H) 10 - 50 U/L 11/12/2024 3:50 PM EDT LABORATORY [place] 57-10 Blood Venous blood specimen / Unknown Venipuncture / Unknown 11/12/2024 2:31 PM EDT 11/12/2024 2:31 PM EDT us Anjana Posada DO LAB BLOOD ORDERABLES Final Result LAB[facility]ATORY [place] 57-10 [facility] [place] [address] documented in this encounter Visit Diagnoses Diagnosis [...] extremity documented in this encounter Care Teams Education Adviser Relationship Specialty Start Date End Date Linnea Booker MD [address] [facility] [place] [address] PCP - General Internal Medicine 04/28/21 documented as of this encounter"
--- OUTSIDE RECORDS SUMMARY | 2024-11-14 00:57 | External Medical Summary | Summary of Care ---
Author Name Unknown Organization [facility] Address [address] [place] [address] Phone [phone] Care Team Providers Care Touch Up Edger Name Role Phone Linnea Booker MD Primary Care Provider Reason for Visit * Reason Comments Outpatient Testing Encounter Details Date Type Department Care Team (Late st Contact Info) Description 2024 8:50 AM EDT Laboratory Laboratory, [facility] [address] [facility] [place] [address] [facility] [address] [facility] [place] [address] [employer] Other*[id number]; Type 2 diabetes mellitus with hemoglobin A1c goal of less than 7.0% ([facility]); HTN, goal below 140/90 Allergies Active Allergy Reactions Criticality Noted Date Comments Metformin Diarrhea 05/18/2011 documented as of this encounter (statuses as of 10/14/2024) Medications ECOTRIN LOW STRENGTH 81 MG PO TBEC One pill by mouth once a day Active isosorbide mononitrate SA (IMDUR) 30 MG TB24 Take 1 Tablet by mouth in the morning. 7 Active [employer] Ultra 2 w/Device Kit Use to test [...] EVERY DAY 90 Tablet 3 4 Active Atorvastatin Calcium 80 MG Oral Tablet (Lipitor)Indicatio ns:Dyslipidemia, goal LDL below 100 TAKE ONE TABLET BY MOUTH EVERY DAY 90 Tablet 3 4 Active Losartan Potassium 100 MG Oral Tablet (Cozaar)Indication s:Atherosclerosis of [place] coronary artery of [place] heart without angina pectoris,HTN, goal below 140/90 TAKE ONE TABLET BY MOUTH EVERY MORNING 90 Tablet 3 4 Active OneTouch Ultra [...] days 1 Each 1 4 Active Pen [place] 32G X 4 MMIndications:Type 2 diabetes mellitus [...] Sublingual Tablet Sublingual (Nitrostat)Indicat ions:Atheroscleros is of [place] coronary artery of [place] heart without angina pectoris PLACE 1 TABLET [...] skin daily. 30 mL 3 5 Active documented as of this encounter (statuses as of 10/14/2024) Active Problems Problem Noted Date Diagnosed Date Colon polyps 03/16/2023 Overview (03/16/2023): Two removed in 2022. Repeat 3 yrs. 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 Coronary atherosclerosis of [place] coronary donell ry 08/12/2010 Overview (08/12/2010): Right [...] as of this encounter (statuses as of 10/14/2024) Resolved Problems Problem Noted Date Diagnosed Date [...] as of this encounter (statuses as of 10/14/2024) Immunizations Name Administration Dates Next Due COVID-19 [...] on file documented as of this encounter Miscellaneous Notes * Result Encounter Note - Linnea Booker MD - 10/14/2024 2:08 PM EDT Addressed by MT documented in this encounter Plan of Treatment Upcoming Encounters Date Type Department Care Team (Late st Contact Info) Description 11/14/2024 8:00 AM EDT Telemedicine Pharmacy, [facility] [address] [facility] [place] [address] Pharmacist1, [facility] [address] [facility] [place] [address] 04/05/2025 8:20 AM EDT Office Visit Family [facility] [address] [place] [address] Linnea Booker MD [address] [place] [address] Scheduled Procedures Name Priority Associated Diagnoses Date/Ti [...] history exists Depression Screening 2025 2024 GFR 2025 2024, 09/0 10/2023, 12/13/2022, Additional history exists Colonoscopy 03/16/2026 03/16/2023, 09/0 [...] Procedure Name Priority Date/Time Associated Diagnosis Comments MYCODE SST1 Routine 2024 8:45 AM EDT [employer] Other*[id number] MYCODE INITIAL ADULT-2SST Routine 2024 8:45 AM EDT [employer] Other*[id number] MYCODE SUBSEQUENT ADULT Routine 2024 8:45 AM EDT [employer] Other*[id number] HEMOGLOBIN A1C Routine 2024 8:45 AM EDT Type 2 diabetes mellitus with hemoglobin A1c goal of less than 7.0% (HCC) BASIC METABOLIC PANEL Routine 2024 8:45 AM EDT HTN, goal below 140/90 documented in this encounter Results * MYCODE SST2 (2024 8:45 AM EDT) [facility] MyCode Specimen Freezing of extracted DNA, whole blood and/or serum. 10/04/2024 10:01 AM EDT LAB[facility]ATORY [facility] Blood Venous blood specimen / Unknown Venipuncture / Unknown 2024 8:45 AM EDT 2024 8:45 AM EDT Joanne HURDA LAB BLOOD ORDERABLES Diana l Result LAB[facility]ORY [facility] [address] [place] [address] * MYCODE SST1 (2024 8:45 AM EDT) [facility] Spec[facility] Freezing of extracted DNA, whole blood and/or serum. 10/04/2024 10:01 AM EDT [facility]ATORY [facility] Blood Venous blood specimen / Unknown Venipuncture / Unknown 2024 8:45 AM EDT 2024 8:45 AM EDT Joanne HURDA LAB BLOOD ORDERABLES Diana l Result Performing Organization Address City/[facility]/ZIP Co de Phone Number LABORATORY [address] [address] * (ABNORMAL) BASIC METABOLIC PANEL (2024 8:45 AM EDT) [facility] BUN 21(H) 6 - 20 mg/dL 2024 9:55 AM EDT LAB[facility] [place] 57-10 CREATININE 0.8 0.6 - 1.2 mg/dL 2024 9:55 AM EDT LAB[facility] [place] 57-10 EGFR >90 >=60 mL/min 2024 9:55 AM EDT [facility] [place] 57-10 Comment:eGFR is calculated b ased on the CKD-EPI 2020 equation. SODIUM 139 135 - 146 mmol/L 2024 9:55 AM EDT LAB[facility] [place] 57-10 POTASSIUM 4.6 3.5 - 5.1 mmol/L 2024 9:55 AM EDT [facility] [place] 57-10 CHLORIDE 103 98 - 107 mmol/L 2024 9:55 AM EDT [facility] [place] 57-10 CO2 24 22 - 32 mmol/L 2024 9:55 AM EDT [facility] 57-10 ANION GAP 12 7 - 15 mmol/L 2024 9:55 AM EDT LAB[facility]ATORY [place] 57-10 GLUCOSE 166(H) 70 - 120 mg/dL 2024 9:55 AM EDT LAB[facility]ATORY [place] 57-10 CALCIUM 9.0 8.4 - 10.2 mg/dL 2024 9:55 AM EDT [facility] 57-10 Blood Venous blood specimen / Unknown Venipuncture / Unknown 2024 8:45 AM EDT 2024 8:45 AM EDT Linnea Booker MD LAB BLOOD ORDERABLES F inal Result Performing Organization Address City/[facility] Co de Phone Number LABORATORY [place] 57-10 [address] [place] [address] * (ABNORMAL) HEMOGLOBIN A1C (2024 8:45 AM EDT) Hemoglobin A1C 8.1(H) 4.0 - 5.6 % 2024 2:24 PM EDT LAB[facility]ATORY [facility] Comment:The use of HbA1c to monitor glycemic status is based on normal hemoglobin and HbA composition. This test should not be used in patients with abnormal hemoglobin that affects the half life of the red blood cell or the in vivo glycation rates. Estimated Average Glucose 186(H) <126 mg/dL 2024 2:24 PM EDT [facility]ORY [facility] Blood Venous blood specimen / Unknown Venipuncture / Unknown 2024 8:45 AM EDT 2024 8:45 AM EDT us Linnea Booker MD LAB BLOOD ORDERABLES F inal Result [facility]ORY [facility] [address] [facility] [place] [address] documented in this encounter Visit Diagnoses Diagnosis [employer] Other*[id number] Type 2 diabetes mellitus with hemoglobin A1c goal of less than 7.0% (HCC) HTN, goal below 140/90 Unspecified essential hypertension documented in this encounter Care Teams Touch Up Edger Relationship Specialty Start Date End Date Linnea Booker MD [address] [place] [address] PCP - General Internal Medicine 04/28/21 documented as of this encounter
--- OUTSIDE RECORDS SUMMARY | 2024-11-14 00:57 | External Medical Summary | Summary of Care ---
Author Name Unknown Organization [facility] Address [address] [place] [address] Phone [phone] Care Team Providers Care Gravel Truck Driver Name Role Phone Linnea Booker MD Primary Care Provider Reason for Visit * Reason Comments eRx-Medication Refill Encounter Details Date Type Department Care Team (Late st Contact Info) Description 10/28/2024 Refill Pharmacy, [facility] [address] [place] [address] Linnea Booker MD [address] [place] [address] Dyslipidemia, goal LDL below 100; Atherosclerosis of [place] coronary artery of [place] heart without angina pectoris; HTN, goal below 140/90 Allergies Active Allergy Reactions Criticality Noted Date Comments Metformin Diarrhea 05/18/2011 documented as of this encounter (statuses as of 10/29/2024) Medications ECOTRIN LOW STRENGTH 81 MG PO TBEC One pill by mouth once a day Active isosorbide mononitrate SA (IMDUR) 30 MG TB24 Take 1 Tablet by mouth in the morning. 12/31/19 17 Active Peaberry SoftwareTouch Ultra 2 w/Device Kit Use to test blood sugars three times daily. E11.9 1 Kit 07/25/19 21 Active OneTouch UltraSoft Lancets Use to test blood sugars three times daily. E11.9 300 Each 3 07/25/19 21 Active Metoprolol Succinate ER 25 MG Oral Tablet Extended Release 24 Hour (toPROL XL) Take 0.5 Tablets by mouth in the morning. 01/16/20 21 Active Dexcom G7 SensorIndications :Type 2 diabetes mellitus with hemoglobin A1c goal of less than 7.0% (HCC) Use to read blood glucose. Change every 10 days. DX: E11.9 3 Each 11 08/01/19 24 Active amLODIPine Besylate 2.5 MG Oral Tablet (Norvasc)Indicati ons:HTN, goal below 140/90 TAKE ONE TABLET BY MOUTH EVERY DAY 90 Tablet 3 08/27/19 24 Active OneTouch Ultra In Vitro Strip (Glucose Blood)Indications :Type 2 diabetes mellitus with hemoglobin A1c goal of less than 7.0% (HCC) USE TO TEST THREE TIMES A DAY 300 Strip 3 12/06/19 24 Active Zoster Vac Recomb Adjuvanted 50 MCG/0.5ML Intramuscular Suspension Reconstituted (Shingrix)Indicat ions:Need for shingles vaccine Inject 0.5 mL into a large muscle now and repeat dose in 60 to 180 days 1 Each 1 03/14/20 24 Active Pen [place] 32G X 4 MMIndications:Typ e 2 diabetes mellitus with hemoglobin A1c goal of less than 7.0% (HCC) Use as directed daily. To inject Basaglar. DX: E11.9 100 Each 3 04/13/20 24 Active BD Pen Needle Mini U/F 31G X 5 MM (Insulin Pen Needle)Indication s:Type 2 diabetes mellitus with hemoglobin A1c goal of less than 7.0% (HCC) For use with long-acting insulin pen daily. 100 Each 4 04/13/20 24 Active Nitroglycerin 0.4 MG Sublingual Tablet Sublingual (Nitrostat)Indica tions:Atheroscler osis of [place] coronary artery of [place] heart without angina pectoris PLACE 1 TABLET UNDER THE TONGUE IF NEEDED FOR CHEST PAIN. MAY REPEAT EVERY 5 MINUTES UP TO 3 TIMES. IF CHEST PAIN CONTINUES, CALL [phone] Tablet 2 05/17/20 24 Active Jardiance 25 MG Oral Tablet (Empagliflozin)In dications:Type 2 diabetes mellitus with hemoglobin A1c goal of less than 7.0% (HCC) TAKE ONE TABLET BY MOUTH EVERY DAY 90 Tablet 3 07/01/20 24 Active Repaglinide 2 MG Oral Tablet (Prandin)Indicati ons:Type 2 diabetes mellitus with hemoglobin A1c goal of less than 7.0% (HCC) Take 2 Tablets by mouth in the morning and 2 Tablets at noon and 2 Tablets in the evening. Take before meals. 540 Tablet 3 08/03/19 25 Active Insulin Glargine-yfgn 100 UNIT/ML Subcutaneous Solution Pen-injectorIndic ations:Type 2 diabetes mellitus with hemoglobin A1c goal of less than 7.0% (HCC) Inject 18 Units under the skin daily. 30 mL 3 09/06/19 25 Active Atorvastatin Calcium 80 MG Oral Tablet (Lipitor)Indicati ons:Dyslipidemia, goal LDL below 100 TAKE ONE TABLET BY MOUTH EVERY DAY 90 Tablet 3 10/30/19 25 Active Losartan Potassium 100 MG Oral Tablet (Cozaar)Indicatio ns:Atherosclerosi s of [place] coronary artery of [place] heart without angina pectoris,HTN, goal below 140/90 TAKE ONE TABLET BY MOUTH EVERY MORNING 90 Tablet 3 10/30/19 25 Active Atorvastatin Calcium 80 MG Oral Tablet (Lipitor)Indicati ons:Dyslipidemia, goal LDL below 100 TAKE ONE TABLET BY MOUTH EVERY DAY 90 Tablet 3 11/02/19 24 025 Discontinued Losartan Potassium 100 MG Oral Tablet (Cozaar)Indicatio ns:Atherosclerosi s of [place] coronary artery of [place] heart without angina pectoris,HTN, goal below 140/90 TAKE ONE TABLET BY MOUTH EVERY MORNING 90 Tablet 3 11/03/19 24 025 Discontinued documented as of this encounter (statuses as of 10/29/2024) Active Problems Problem Noted Date Diagnosed Date Colon polyps 03/16/2023 Overview (03/16/2023): Two removed in 2022. Repeat 3 yrs. 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 Coronary atherosclerosis of [place] coronary donell ry 08/12/2010 Overview (08/12/2010): Right [...] as of this encounter (statuses as of 10/29/2024) Resolved Problems Problem Noted Date Diagnosed Date [...] as of this encounter (statuses as of 10/29/2024) Immunizations Name Administration Dates Next Due COVID-19 [...] as of this encounter Miscellaneous Notes * Telephone Encounter - Fabi Eldridge RPh - 10/29/2024 7:53 AM EDTSigned Prescriptions: Disp Refills Atorvastatin Calcium 80 MG Oral Tablet (Li*90 Tab*3 Sig: TAKE ONE TABLET BY MOUTH EVERY DAYAuthorizing Provider: LINNEA BOOKER User: FABI REID V Losartan Potassium 100 MG Oral Tablet (Coz*90 Tab*3 Sig: TAKE ONE TABLET BY MOUTH EVERY MORNINGAuthorizing Provider: LINNEA BOOKER User: FABI RIED V * Telephone Encounter - Fabi Eldridge RPh - 10/29/2024 7:51 AM EDT Did Did you pend patient's preferred pharmacy and medication before forwarding?no Pharmacy: [id number] [address] [facility] Pending Prescriptions: Disp Refills Atorvastatin Calcium 80 MG Oral Tablet (L*90 Tab*3 Sig: TAKE ONE TABLET BY MOUTH EVERY DAY Losartan Potassium 100 MG Oral Tablet (Co*90 Tab*3 Sig: TAKE ONE TABLET BY MOUTH EVERY MORNING Last Visit: 2024 (in office), 09/03/2024 (telemedicine) Next Visit: 11/14/2024 If no future appointments scheduled, and last appointment is greater than a year ago, please schedule patient for a follow-up appointment Last date the medication was ordered: 11/02/23 Is this request for a controlled substance?No Urine Drug Screen:No results found for this or any previous visit. Patient Phone Numbers Labs: Lab Results Component Value Date/Time CREAT 0.8 2024 08:45 AM CREAT 0.8 01/02/2020 11:24 AM POTASSIUM 4.6 2024 08:45 AM POTASSIUM 4.4 01/02/2020 11:24 AM TSH 0.83 03/14/2024 08:55 AM TSH 0.89 05/20/2017 08:39 AM LDL 50 07/25/2023 09:54 AM LDL 57 01/02/2020 11:24 AM LDL NOT APPLICABLE 01/02/2020 11:24 AM ALT 43 03/14/2024 08:55 AM ALT 43 01/02/2020 11:24 AM HGBA1C 8.1 (H) 2024 08:45 AM HGBA1C 7.7 (H) 11/16/2023 07:47 AM HGBA1C 8.7 (A) 06/12/2019 08:20 AM HGBA1C 8.4 (H) 02/21/2019 10:45 AM Fabi Reid RPh, CACP, CDE Clinical Pharmacist [facility] 10/29/2024, 7:51 AM documented in this encounter Plan of Treatment Upcoming Encounters Date Type Department Care Team (Late st Contact Info) Description 11/14/2024 8:00 AM EDT Telemedicine Pharmacy, [facility] [address] [facility] [place] [address] Pharmacist1, [facility] [address] [facility] [place] [address] 04/05/2025 8:20 AM EDT Office Visit [facility] [address] [place] [address] Linnea Booker MD [address] [place] [address] Scheduled Procedures Name Priority Associated Diagnoses Date/Ti [...] as of this encounter Visit Diagnoses Diagnosis Dyslipidemia, goal LDL below 100 Other and unspecified hyperlipidemia Atherosclerosis of [place] coronary artery of [place] heart without angina pectoris HTN, goal below 140/90 Unspecified essential hypertension documented in this encounter Care Teams Gravel Truck Driver Relationship Specialty Start Date End Date Linnea Booker MD [address] [place] [address] PCP - General Internal Medicine 04/28/21 documented as of this encounter
--- OUTSIDE RECORDS SUMMARY | 2024-11-14 00:57 | External Medical Summary | Summary of Care ---
Author Name Unknown Organization [facility] Address [address] [place] [address] Phone [phone] Care Team Providers Care Nurse Esthetician Name Role Phone Linnea Booker MD Primary Care Provider Encounter Details Date Type Department Care Team (Late st Contact Info) Description 11/07/2024 Orders Only Family Practice [facility] [address] [place] [address] Linnea Booker MD [address] [place] [address] Allergies Active Allergy Reactions Criticality Noted Date [...] days 1 Each 1 4 Active Pen [place] 32G X 4 MMIndications:Type 2 diabetes mellitus [...] Sublingual Tablet Sublingual (Nitrostat)Indicat ions:Atheroscleros is of [place] coronary artery of grindstone heart without angina pectoris PLACE 1 TABLET [...] 100 MG Oral Tablet (Cozaar)Indication s:Atherosclerosis of [place] coronary artery of [place] heart without angina pectoris,HTN, goal below 140/90 [...] Per HTN Protocol #27. Coronary atherosclerosis of [place] coronary donell ry 08/12/2010 Overview (08/12/2010): Right [...] 8:20 AM EDT Office Visit Family Practice [facility] [address] [address] Linnea Booker MD [address] [place] [address] Scheduled Procedures Name Priority Associated Diagnoses Date/Ti [...] 03/14/2024, Additional history exists Colonoscopy 03/16/2026 03/16/2023, 09/0 [...] Procedure Name Priority Date/Time Associated Diagnosis Comments CTA CHEST NON-CORONARY W CONTRAST Routine 11/06/2024 documented in this encounter Results * CTA CHEST NON-CORONARY W CONTRAST (11/06/2024) Anatomical Region Laterality Modality Chest, Cardio, Body Other 11/06/2024 us Alfredo Chin MD RAD CT Fi nal Result documented in this encounter Care Teams Nurse Esthetician Relationship Specialty Start Date End Date Linnea Booker MD [address] [place] [address] PCP - General Internal Medicine 04/28/21 documented as of this encounter
--- OUTSIDE RECORDS SUMMARY | 2024-11-14 00:57 | External Medical Summary | Summary of Care ---
Author Name Unknown Organization [facility] Address [address] [place] [address] Phone [phone] Care Team Providers Care Plywood Layup Line Core Feeder Name Role Phone Linnea Booker MD Primary Care Provider Encounter Details Date Type Department Care Team (Late st Contact Info) Description 11/07/2024 Orders Only Family Practice [facility] [address] [place] [address] Linnea Booker MD [address] [place] [address] Allergies Active Allergy Reactions Criticality Noted Date [...] days 1 Each 1 4 Active Pen [place] 32G X 4 MMIndications:Type 2 diabetes mellitus [...] Sublingual Tablet Sublingual (Nitrostat)Indicat ions:Atheroscleros is of [place] coronary artery of [place] heart without angina pectoris PLACE 1 TABLET [...] 100 MG Oral Tablet (Cozaar)Indication s:Atherosclerosis of [place] coronary artery of [place] heart without angina pectoris,HTN, goal below 140/90 [...] Per HTN Protocol #27. Coronary atherosclerosis of [place] coronary donell ry 08/12/2010 Overview (08/12/2010): Right [...] 8:00 AM EDT Telemedicine Pharmacy, [facility] [place] [address] [place] [address] Pharmacist1, [facility] [address] [place] [address] 04/05/2025 8:20 AM EDT Office Visit Family Practice [facility] [address] [address] Linnea Booker MD [address] [place] [address] Scheduled Procedures Name Priority Associated Diagnoses Date/Ti [...] Procedure Name Priority Date/Time Associated Diagnosis Comments XR CHEST 1 VIEW Routine 11/06/2024 documented in this encounter Results * XR CHEST 1 VIEW (11/06/2024) Anatomical Region Laterality Modality Chest Other 11/06/2024 Alfredo Chin MD RADIOLOGY (RAD GEN ERAL) Final Result documented in this encounter Care Teams Plywood Layup Line Core Feeder Relationship Specialty Start Date End Date Linnea Booker MD [address] [facility] [place] [address] PCP - General Internal Medicine 04/28/21 documented as of this encounter
--- OUTSIDE RECORDS SUMMARY | 2024-11-14 00:57 | External Medical Summary | Summary of Care ---
Author Name Unknown Organization [facility] Address [address] [place] [address] Phone [phone] Care Team Providers Care Convention Services Director Name Role Phone Linnea Booker MD Primary Care Provider Encounter Details Date Type Department Care Team (Late st Contact Info) Description 11/08/2024 Orders Only Family Practice [facility] [address] [place] [address] Linnea Booker MD [address] [place] [address] Allergies Active Allergy Reactions Criticality Noted Date Comments Metformin Diarrhea 05/18/2011 documented as of this encounter (statuses as of 11/08/2024) Medications ECOTRIN LOW STRENGTH 81 MG PO [...] days 1 Each 1 4 Active Pen [place] 32G X 4 MMIndications:Type 2 diabetes mellitus [...] Sublingual Tablet Sublingual (Nitrostat)Indicat ions:Atheroscleros is of [place] coronary artery of [place] heart without angina pectoris PLACE 1 TABLET [...] 100 MG Oral Tablet (Cozaar)Indication s:Atherosclerosis of [place] coronary artery of [place] heart without angina pectoris,HTN, goal below 140/90 TAKE ONE TABLET BY MOUTH EVERY MORNING 90 Tablet 3 5 Active documented as of this encounter (statuses as of 11/08/2024) Active Problems Problem Noted Date Diagnosed Date Colon polyps 03/16/2023 Overview (03/16/2023): Two removed in 2022. Repeat 3 yrs. 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 Coronary atherosclerosis of [place] coronary donell ry 08/12/2010 Overview (08/12/2010): Right [...] as of this encounter (statuses as of 11/08/2024) Resolved Problems Problem Noted Date Diagnosed Date [...] as of this encounter (statuses as of 11/08/2024) Immunizations Name Administration Dates Next Due COVID-19 [...] 8:20 AM EDT Office Visit Family Practice [facility] [address] [address] Linnea Booker MD [address] [place] [address] Scheduled Procedures Name Priority Associated Diagnoses Date/Ti [...] exists Depression Screening 2025 2024 GFR 11/06/2025 11/07/2024, 04/2 03/2025, 2024, Additional history exists Colonoscopy 03/16/2026 03/16/2023, 09/0 [...] Priority Date/Time Associated Diagnosis Comments CHEMISTRY-OUTSIDE Routine 11/07/2024 documented in this encounter Results * (ABNORMAL) CHEMISTRY-OUTSIDE (11/07/2024) Not all results display below - see scan for full detail OUTSIDE LAB (SEE SCANNED REPORT) Comment:SCAN INCLUDES - CBCD , BMP CREATININE 0.64(A) 0.70 - 1.30 MG/DL OUTSIDE LAB (SEE SCANNED REPORT) EGFR >90 >=60 ML/MIN OUTSIDE LAB (SEE SCANNED REPORT) POTASSIUM 4.1 3.5 - 5.1 MMOL/L OUTSIDE LAB (SEE SCANNED REPORT) GLUCOSE 108 70 - 110 MG/DL OUTSIDE LAB (SEE [...] LAB OUTSIDE LAB (SEE SCANNED REPORT) HEMOGLOBIN, [id number] LAB OUTSIDE LAB (SEE SCANNED REPORT) PHOSPHORUS-OUTSID E LAB OUTSIDE LAB (SEE SCANNED REPORT) PTH-OUTSIDE LAB OUTS DEXTER LAB (SEE SCANNED REPORT) MICROALBUMIN RATIO-OUTSIDE LAB OUTSIDE LA B (SEE SCANNED REPORT) PROTEIN, UA-OUTSIDE LAB OUTSIDE LAB (SEE SCANNED REPORT) HGB 8.2(A) 13.5 - 18.0 GM/DL OUTSIDE LAB (SEE SCANNED REPORT) 11/07/2024 us Alfredo Chin MD LABORATORY Fi nal Result OUTSIDE LAB (SEE SCANNED REPORT) documented in this encounter Care Teams Convention Services Director Relationship Specialty Start Date End Date Linnea Booker MD [address] [place] [address] PCP - General Internal Medicine 04/28/21 documented as of this encounter
--- OUTSIDE RECORDS SUMMARY | 2024-11-14 00:58 | External Medical Summary ---
Author Name Unknown Address Unknown Organization [id number]:[facility] [place] [address] [place] [address] Laboratory Report Ordering Provider Test Date Status INOYEE 2024 08:45:46 Final Observation Date Value Abnormality Reference (Units ) Status MYCODE SPECIMEN-SST 2024 08:45:46 Freezing of extracted DNA, whole blood and/or serum. Final Performing Location LABORATORY C - [address] [place] [address]
--- OUTSIDE RECORDS SUMMARY | 2024-11-14 00:58 | External Medical Summary | Summary of Care ---
Author Name Unknown Organization [facility] Address [address] [place] [address] Phone [phone] Care Team Providers Care Heavy Machinery Operator Name Role Phone Linnea Booker MD Primary Care Provider Reason for Visit * Reason Comments Outpatient Testing Encounter Details Date Type Department Care Team (Late st Contact Info) Description 2024 8:50 AM EDT Laboratory Laboratory, [facility] [address] [facility] [place] [address] [facility] [address] [facility] [place] [address] [employer] Other*[id number]; Type 2 diabetes mellitus with hemoglobin A1c goal of less than 7.0% ([facility]); HTN, goal below 140/90 Allergies Active Allergy Reactions Criticality Noted Date Comments Metformin Diarrhea 05/18/2011 documented as of this encounter (statuses as of 2024) Medications ECOTRIN LOW STRENGTH 81 MG PO TBEC One pill by mouth once a day Active isosorbide mononitrate SA (IMDUR) 30 MG TB24 Take 1 Tablet by mouth in the morning. 7 Active Cloudability Ultra 2 w/Device Kit Use to test [...] 100 MG Oral Tablet (Cozaar)Indication s:Atherosclerosis of [place] coronary artery of [place] heart without angina pectoris,HTN, goal below 140/90 [...] days 1 Each 1 4 Active Pen [place] 32G X 4 MMIndications:Type 2 diabetes mellitus [...] Sublingual Tablet Sublingual (Nitrostat)Indicat ions:Atheroscleros is of [place] coronary artery of [place] heart without angina pectoris PLACE 1 TABLET [...] as of this encounter (statuses as of 2024) Active Problems Problem Noted Date Diagnosed Date Colon polyps 03/16/2023 Overview (03/16/2023): Two removed in 2022. Repeat 3 yrs. 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 Coronary atherosclerosis of [place] coronary donell ry 08/12/2010 Overview (08/12/2010): Right [...] as of this encounter (statuses as of 2024) Resolved Problems Problem Noted Date Diagnosed Date [...] as of this encounter (statuses as of 2024) Immunizations Name Administration Dates Next Due COVID-19 [...] older, IM (Adacel) 03/14/2024, Varicella Zoster Vaccine (Adult) 11/11/2015 documented as of this encounter Social [...] 8:20 AM EDT Office Visit Family Practice [facility] [address] [address] Linnea Booker MD [address] [place] [address] Pending Results Name Type Priority Associated Diagnoses Date /Time MYCODE SUBSEQUENT ADULT Lab Routine [employer] Other*[id number] 2024 8:45 AM EDT HEMOGLOBIN A1C Lab Routine Type 2 diabetes mellitus with hemoglobin A1c goal of less than 7.0% ([facility]) 2024 8:45 AM EDT BASIC METABOLIC PANEL Lab Routine HTN, goal below 140/90 2024 8:45 AM EDT MYCODE SST1 Lab Routine [employer] Other*[id number] 2024 8:45 AM EDT MYCODE SST2 Lab Routine [employer] Other*[id number] 2024 8:45 AM EDT Scheduled Procedures Name Priority Associated Diagnoses Date/Ti me COLONOSCOPY FLEXIBLE PROXIMA L DIAGNOSTIC Recall History of colonic polyps Health Maintenance Due Date Last Done Comments Cologuard 1997 Fecal Occult Blood Test 1997 Sigmoidoscopy 1997 Zoster Vaccines (2 of 3) 01/06/2016 11/11/2015 Adult Wellness Visit 2018 Albumin/Creatinine Ratio 07/25/2024 024, 12/11/2021, 10/01/2020, Additional history exists HbA1c 09/11/2024 03/14/2024, 05/0 02/2024, 07/25/2023, Additional history exists Diabetic Eye Exam 03/07/2025 03/07/2024, , 03/07/2024, Additional history exists Diabetic Foot Exam 03/14/2025 03/14/2024, 0 03/09/2023, 12/11/2021, Additional history exists GFR 03/14/2025 03/14/2024, 06/0 11/2022, 12/11/2021, Additional history exists Depression Screening 2025 2024 Colonoscopy 03/16/2026 03/16/2023, 09/0 12/2022, 08/20/2019, Additional [...] as of this encounter Visit Diagnoses Diagnosis [employer] Other*[id number] Type 2 diabetes mellitus with hemoglobin A1c goal of less than 7.0% (HCC) HTN, goal below 140/90 Unspecified essential hypertension documented in this encounter Care Teams Heavy Machinery Operator Relationship Specialty Start Date End Date Linnea Booker MD [address] [place] [address] PCP - General Internal Medicine 04/28/21 documented as of this encounter
--- OUTSIDE RECORDS SUMMARY | 2024-11-14 00:58 | External Medical Summary ---
Author Name Unknown Address Unknown Organization K01[place] [facility] [place] [address] [facility] [address] Laboratory Report Ordering Provider Test Date Status FREDERICK COHN 2024 08:45:46 Final Observation Date Value Abnormality Reference (Units ) Status HbA1C 2024 08:45:46 8.1 Above high normal 4. 0-5.6 (%) Final The use of HbA1c to monitor glycemic status is based on normal hemoglobin and HbA composition. This test should not be used in patients with abnormal hemoglobin that affects the half life of the red blood cell or the in vivo glycation rates. Glucose, estimated average 2024 08:45:46 186 Above high normal <126 (mg/dL) Paulino rushing Performing Location [facility] [place] [address] [facility] [address]
--- OUTSIDE RECORDS SUMMARY | 2024-11-14 00:58 | External Medical Summary | Summary of Care ---
Author Name Unknown Organization [facility] Address [address] [place] [address] Phone [phone] Care Team Providers Care Coffee Supervisor Name Role Phone Linnea Booker MD Primary Care Provider Reason for Visit * Reason Comments Diabetes Follow-Up Dosage Adjustment Via Phone (anticoag Cl inic) Encounter Details Date Type Department Care Team (Late st Contact Info) Description 08/03/2024 7:30 AM [facility] Telemedicine Pharmacy, [facility] [address] [place] [address] Pharmacist1, [facility] [address] [facility] [address] Type 2 diabetes mellitus with hemoglobin A1c goal of less than 7.0% ([facility])* Allergies Active Allergy Reactions Criticality Noted Date Comments Metformin Diarrhea 05/18/2011 documented as of this encounter (statuses as of 08/03/2024) Medications ECOTRIN LOW STRENGTH 81 MG PO TBEC One pill by mouth once a day Active isosorbide mononitrate SA (IMDUR) 30 MG TB24 Take 1 Tablet by mouth in the morning. 7 Active U2opia MobileTouch Ultra 2 w/Device Kit Use to test blood sugars three times daily. E11.9 1 Kit 1 Active U2opia MobileTouch UltraSoft Lancets Use to test blood sugars three times daily. E11.9 300 Each 3 1 Active Metoprolol Succinate ER 25 MG Oral Tablet Extended Release 24 Hour (toPROL XL) Take 0.5 Tablets by mouth in the morning. 1 Active Dexcom G7 SensorIndications :Type 2 diabetes [...] MG Oral Tablet (Cozaar)Indicatio ns:Atherosclerosi s of [place] coronary artery of [place] heart without angina pectoris,HTN, goal below 140/90 [...] days 1 Each 1 4 Active [place] 32G X 4 MMIndications:Typ e 2 diabetes [...] Sublingual Tablet Sublingual (Nitrostat)Indica tions:Atheroscler osis of [place] coronary artery of [place] heart without angina pectoris PLACE 1 TABLET UNDER THE TONGUE IF NEEDED FOR CHEST PAIN. MAY REPEAT EVERY 5 MINUTES UP TO 3 TIMES. IF CHEST PAIN CONTINUES, CALL [phone] Tablet 2 4 Active Jardiance 25 MG Oral Tablet (Empagliflozin)In dications:Type 2 diabetes mellitus with hemoglobin A1c goal of less than 7.0% (HCC) TAKE ONE TABLET BY MOUTH EVERY DAY 90 Tablet 3 4 Active Insulin Glargine Solostar 100 UNIT/ML Subcutaneous Solution Pen-injector (Basaglar KwikPen)Indicatio ns:Type 2 diabetes mellitus with hemoglobin A1c goal of less than 7.0% (HCC) Inject 15 Units under the skin in the morning. 15 mL 3 5 Active Repaglinide 2 MG Oral Tablet (Prandin)Indicati ons:Type 2 diabetes mellitus with hemoglobin A1c goal of less than 7.0% (HCC) Take 2 Tablets by mouth in the morning and 2 Tablets at noon and 2 Tablets in the evening. Take before meals. 540 Tablet 3 5 Active Repaglinide 2 MG Oral Tablet (Prandin)Indicati ons:Type 2 diabetes mellitus with hemoglobin A1c goal of less than 7.0% (HCC) Take 2 Tablets by mouth 2 times a day with morning and evening meals. 360 Tablet 3 5 08/03/19 25 Discontin ued(Refil l) documented as of this encounter (statuses as of 08/03/2024) Active Problems Problem Noted Date Diagnosed Date Colon polyps 03/16/2023 Overview (03/16/2023): Two removed in 2022. Repeat 3 yrs. 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 Coronary atherosclerosis of [place] coronary donell ry 08/12/2010 Overview (08/12/2010): Right [...] as of this encounter (statuses as of 08/03/2024) Resolved Problems Problem Noted Date Diagnosed Date [...] as of this encounter (statuses as of 08/03/2024) Immunizations Name Administration Dates Next Due COVID-19 [...] Date Recorded PHQ Adult Total Score 0 10/01/2020 Hunger Vital Sign Answer Date Recorded Within the past 12 months, y ou worried that your food would run out before you got the money to buy more. Never true 03/11/20 24 Within the past 12 months, t he food you bought just didn't last and you didn't have money to get more. Never true 03/11/2024 Childcare Answer Date Recorded Do you feel overwhelmed with taking care of a child, family member or friend? No 03/11/2024 Does your family need help f inding childcare? (Household - for ages 0-17 years) Not on file 03/11/2024 Clothing Answer Date Recorded Have you been unable to get clothing when it was really needed? No 03/11/2024 Is your family able to get c lothes or diapers when needed? (Household - for ages 0-17 years) Not on file 03/11/2024 Personal Safety Answer Date Recorded Do you feel unsafe or have concerns for your saf ety? No 03/11/2024 Do you have concerns for you r family's safety? (Household - for ages 0-17 years) Not on file 03/11/2024 Utilities Answer Date Recorded Do you have trouble paying y our heating, water, or electric bill? No 03/11/2024 Is your family able to pay t he heat, water, or electric bill? (Household - for ages 0-17 years) Not on file 03/11/2024 Does your family have access to good internet? (Household - for ages 0-17 years) Not on file 03/11/2024 Employment Status Answer Date Recorded Are you unemployed or without regular income? No 03/11/2024 Does the household have a re lar source of income? (Household - for ages 0-17 years) Not on file 03/11/2024 Social Connections Answer Date Recorded How often do you feel lonely or isolated from th ose around you? Never 03/11/2024 Financial Resource Strain Answer Date R ecorded Do you have any trouble payi ng for your medications, or do you think you might in the future? Yes 03/11/2024 Does your family have troubl e paying for medicine? (Household - for ages 0-17 years) Not on file 03/11/2024 Transportation Needs Answer Date Record ed Do you have trouble getting a ride to medical visits or work? (Adult - for ages 18 years and over) Not on file 03/11/2024 Does your family have a hard time getting a ride to doctors visits? (Household - for ages 0-17 years) Not on file 03/11/2024 Has lack of transportation k ept you from medical appointments, meetings, work, or from getting things needed for daily living? Check all that apply. No 03/11/2024 Do you (or your family) have trouble finding or paying for a ride (transportation)? (Household - for ages 0-17 years) Not on file 03/11/2024 Housing Stability Answer Date Recorded Do you currently live in a s helter or have no steady place to sleep at night? No 03/11/2024 Do you think you are at risk of becoming homeless? (Adult - for ages 18 years and over) Not on file 03/11/2024 Does your family worry about paying for your home or becoming homeless? (Household - for ages 0-17 years) Not on file 0 03/11/2024 Are you homeless or worried that you might be in the future? No 03/11/2024 Are you (or your family) maikel eless [...] ages 0-17 years) Not on file 03/11/2024 Sex and Gender Information Value Date Recorded [...] on file documented as of this encounter Progress Notes * Steve Eldridge RPh - 08/03/2024 6:54 AM EST Images from the original note were not included. Medication Therapy [facility] - Diabetes Management Progress Note Patient Phone Numbers Florentino Gonzalez, identified by name and date of , is a 73 year old male being seen for diabetes management/education. Patient for telephonic return diabetic visit. As per patient preference, connection with the patient via audio only occurred. The patient was informed this was a phone call only visit and was identified by name and date of . The patient agreed to participate. Total call duration was 17 minutes. DIABETES: Current diabetic medications: Jardiance 25 mg daily INCREASE: Prandin 2mg 2 tablets before breakfast and 2 tablets dinner INCREASE: Basaglar 15 units daily Medication Injection Site: Abdomen Lifestyle: Diet: unchanged History of Treatment Barriers: Lifestyle: None Therapy considerations: Cost Medication: Metformin: EMILY - loose stools Glucose Review/SMBG: Readings obtained from patient device Hypoglycemia: Does your blood sugar go below 70 mg/dL? No Hyperglycemia symptoms present: none Goal <7 Recent Labs Units 03/14/24 0855 11/16/23 0747 07/25/23 0954 HEMOGLOBIN A1C - [facility] % 8.0* -- 8.1* HEMOGLOBIN A1C POCT - [facility] % -- 7.7* -- Recent Labs Units 03/14/24 0855 12/13/22 0914 12/11/21 1040 ESTIMATED GLOMERULAR FILTRATION RATE - [facility] mL/min >90 >90 >90 CREATININE - [facility] mg/dL 0.9 0.8 0.8 Lab Results Component Value Date/Time CREATININE - [facility] 0.9 03/14/2024 08:55 AM CREATININE - [facility] 0.8 12/13/2022 09:14 AM CREATININE - [facility] 0.8 12/11/2021 10:40 AM CREATININE - [facility] 0.8 01/02/2020 11:24 AM CREATININE - [facility] 0.9 03/05/2019 09:41 AM CREATININE - [facility] 0.9 02/21/2019 10:45 AM CREATININE, RANDOM URINE - [facility] 86 07/25/2023 09:58 AM CREATININE, RANDOM URINE - [facility] 72 12/11/2021 10:40 AM CREATININE, RANDOM URINE - [facility] 73 10/01/2020 09:39 AM CREATININE, RANDOM URINE - [facility] 75 01/02/2020 11:33 AM CREATININE, RANDOM URINE - [facility] 41 05/31/2018 08:56 AM CREATININE, RANDOM URINE - [facility] 67 09/13/2017 08:49 AM HYPERTENSION: Patient on ACEi/ARB: yes - Losartan 100 mg daily BP Readings from Last 3 Encounters: 03/14/24 118/80 03/16/23 115/73 03/09/23 142/68 Blood pressure at goal: yes HYPERLIPIDEMIA: Does patient have clinical ASCVD? Yes, is patient LDL less than 55 mg/dL? Yes HEALTH MAINTENANCE REVIEW: Health Maintenance Due Topic Date Due Zoster Vaccines (2 of 3) 01/06/2016 Adult Wellness Visit Never done Depression Screening 10/01/2021 Albumin/Creatinine Ratio 07/25/2024 ASSESSMENT & PLAN: ICD-10-CM 1. Type 2 diabetes mellitus with hemoglobin A1c goal of less than 7.0% ([facility]) E11.9 BG Readings - Blood sugars uncontrolled. BG rising after every meal and dropping overnight. We discussed this and why it is happening. He is not ready to do mealtime insulin. We will continue to use Basaglar to help with meals as long as he doesn't have lows overnight. Medications - Reviewed current regimen, patient is adherent to regimen. Increasing Prandin to be given with lunch also. Diet, Exercise, Lifestyle - No significant lifestyle changes since last visit. Discussed with patient today. Patient is agreeable to wear Dexcom CGM. Patient aware to contact clinic if any hypoglycemia before next visit. MEDICATION CHANGES: yes, see below; preferred pharmacy: [facility] Medications: Jardiance 25 mg daily INCREASE: Prandin 2mg 2 tablets before breakfast, 2 tablets before lunch and 2 tablets dinner Basaglar 15 units daily HEALTH MAINTENANCE INTERVENTIONS: Labs: Ordered & Scheduled: HgA1c and Urine Microalbumin Immunizations: needs shingles Foot Exam: Up to Date Eye Exam: Up to Date Annual Wellness Visit: needs scheduled I spent a total of 30-39 minutes (exact time 34 mins) on the date of service in preparation, delivery, and documentation of the care provided to Florentino Gonzalez excluding any time spent in the performance of separately billed services or time spent by another provider/QHP. FOLLOW UP: Phone call follow up in 4 weeks 09/03/2024 Steve Reid RPh, CACP, CDE Clinical Pharmacist Medication Therapy Management Clinic 08/03/2024 6:56 AM documented in this encounter Plan of Treatment Upcoming Encounters Date Type Department Care Team (Late st Contact Info) Description 09/03/2024 7:40 AM EST [facility]medicine Pharm[place], [facility] [place] [address] [facility] [place] [address] Pharmacist1, [facility] [address] [facility] [place] [id number] 2024 8:00 AM EDT Office Visit Family Practice [facility] [address] [place] [address] Linnea Booker MD [address] [place] [address] Scheduled Procedures Name Priority Associated Diagnoses Date/Ti me COLONOSCOPY FLEXIBLE PROXIMA L DIAGNOSTIC Recall History of colonic polyps Health Maintenance Due Date Last Done Comments Cologuard 1997 Fecal Occult Blood Test 1997 Sigmoidoscopy 1997 Zoster Vaccines (2 of 3) 01/06/2016 11/11/2015 Adult Wellness Visit 2018 Depression Screening 10/01/2021 10/01/2020 Albumin/Creatinine Ratio 07/25/2024 024, 12/11/2021, 10/01/2020, Additional history exists HbA1c 09/11/2024 03/14/2024, 0 02/2024, 07/25/2023, Additional history exists Diabetic Eye Exam 03/07/2025 03/07/2024, , 03/07/2024, Additional history exists Diabetic Foot Exam 03/14/2025 03/14/2024, 0 03/09/2023, 12/11/2021, Additional history exists GFR 03/14/2025 03/14/2024, 11/2022, 12/11/2021, Additional history exists Colonoscopy 03/16/2026 03/16/2023, 12/2022, [...] as of this encounter Visit Diagnoses Diagnosis Type 2 diabetes mellitus with hemoglobin A1c goal of less than 7.0% (HCC)- Primary documented in this encounter Care Teams Coffee Supervisor Relationship Specialty Start Date End Date Linnea Booker MD [address] [place] [address] PCP - General Internal Medicine 04/28/21 documented as of this encounter
--- OUTSIDE RECORDS SUMMARY | 2024-11-14 00:58 | External Medical Summary | Summary of Care ---
Author Name Unknown Organization [facility] Address [address] [place] [address] Phone [phone] Care Team Providers Care Volunteer Services Assistant Name Role Phone Linnea Booker MD Primary Care Provider Reason for Visit * Reason Comments Diabetes Follow-Up Dosage Adjustment Via Phone (anticoag Cl inic) Encounter Details Date Type Department Care Team (Late st Contact Info) Description 07/13/2024 8:00 AM [facility] Telemedicine Pharmacy, [facility] [address] [place] [address] Pharmacist1, [facility] [address] [facility] [place] [address] Type 2 diabetes mellitus with hemoglobin A1c goal of less than 7.0% ([facility])* Allergies Active Allergy Reactions Criticality Noted Date Comments Metformin Diarrhea 05/18/2011 documented as of this encounter (statuses as of 07/13/2024) Medications ECOTRIN LOW STRENGTH 81 MG PO TBEC One pill by mouth once a day Active isosorbide mononitrate SA (IMDUR) 30 MG TB24 Take 1 Tablet by mouth in the morning. 7 Active DiagnosiaTouch Ultra 2 w/Device Kit Use to test blood sugars three times daily. E11.9 1 Kit 1 Active DiagnosiaTouch UltraSoft Lancets Use to test blood sugars [...] MG Oral Tablet (Cozaar)Indicatio ns:Atherosclerosi s of [place] coronary artery of [place] heart without angina pectoris,HTN, goal below 140/90 [...] days 1 Each 1 4 Active Pen [place] 32G X 4 MMIndications:Typ e 2 diabetes [...] Sublingual Tablet Sublingual (Nitrostat)Indica tions:Atheroscler osis of [place] coronary artery of [place] heart without angina pectoris PLACE 1 TABLET [...] 4 Active Repaglinide 2 MG Oral Tablet (Prandin)Indicati ons:Type 2 diabetes mellitus with hemoglobin A1c goal of less than 7.0% (HCC) Take 2 Tablets by mouth 2 times a day with morning and evening meals. 360 Tablet 3 5 Active Insulin Glargine Solostar 100 UNIT/ML Subcutaneous Solution Pen-injector (Basaglar KwikPen)Indicatio ns:Type 2 diabetes mellitus with hemoglobin A1c goal of less than 7.0% (HCC) Inject 15 Units under the skin in the morning. 15 mL 3 5 Active Insulin Glargine Solostar 100 UNIT/ML Subcutaneous Solution Pen-injector (Basaglar KwikPen)Indicatio ns:Type 2 diabetes mellitus with hemoglobin A1c goal of less than 7.0% (HCC) Inject 10 Units under the skin in the morning. Increase by 2 units every 3 days until fasting blood sugar <180. Max daily dose 30 units. 15 mL 3 4 07/13/19 25 Discontin ued(Refil l) Repaglinide 2 MG Oral Tablet (Prandin)Indicati ons:Type 2 diabetes mellitus with hemoglobin A1c goal of less than 7.0% (HCC) Take 1 Tablet by mouth 2 times a day with morning and evening meals. 180 Tablet 3 4 07/13/19 25 Discontin ued(Refil l) documented as of this encounter (statuses as of 07/13/2024) Active Problems Problem Noted Date Diagnosed Date Colon polyps 03/16/2023 Overview (03/16/2023): Two removed in 2022. Repeat 3 yrs. 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 Coronary atherosclerosis of [place] coronary donell ry 08/12/2010 Overview (08/12/2010): Right [...] as of this encounter (statuses as of 07/13/2024) Resolved Problems Problem Noted Date Diagnosed Date [...] as of this encounter (statuses as of 07/13/2024) Immunizations Name Administration Dates Next Due COVID-19 [...] No 03/11/2024 Does the household have a [facility] source of income? (Household - for ages [...] of this encounter Progress Notes * Steve Eldridge, [facility] - 07/13/2024 6:55 AM EST Images from the original note [...] agreed to participate. Total call duration was 9 minutes. DIABETES: Current diabetic medications: Jardiance 25 mg daily STOP: Trulicity 3 mg weekly ADD: Prandin 2mg before breakfast and dinner INCREASE: Basaglar 12 units daily Medication Injection Site: Abdomen Lifestyle: [...] goal of less than 7.0% ([facility]) E11.9 BG Readings - Blood sugars uncontrolled. BG still elevated and rising post breakfast and dinner Medications - Reviewed current regimen, patient is adherent to regimen. He needs more Lantus and Prandin. Not sure Prandin is enough to cover meals. He may be needing insulin. He has significant dawnalso. Diet, Exercise, Lifestyle - No significant lifestyle changes since last visit. Discussed with patient today. Patient is agreeable to wear Dexcom. Patient aware to contact clinic if any hypoglycemia before next visit. MEDICATION CHANGES: yes, see below; preferred pharmacy: [facility]abetic Medications: Jardiance 25 mg daily INCREASE: Prandin 2mg 2 tablets before breakfast and 2 tablets dinner INCREASE: Basaglar 15 units daily HEALTH MAINTENANCE INTERVENTIONS: Labs: Up to Date Immunizations: needs shingles Foot Exam: Up to Date Eye Exam: Up to Date Annual Wellness Visit: Up to Date I spent a total of 20-29 minutes (exact time 26 mins) on the date of service in preparation, delivery, and documentation of the care provided to Florentino Gonzalez excluding any time spent in the performance of separately billed services or time spent by another provider/QHP. FOLLOW UP: Phone call follow up in 3 weeks 08/03/2024 Steve Reid RPh, CACP, CDE Clinical Pharmacist Medication Therapy Management Clinic 07/13/2024 6:56 AM documented in this encounter Plan of Treatment Upcoming Encounters Date Type Department Care Team (Late st Contact Info) Description 08/03/2024 7:30 AM EST Telemedicine Pharmacy, [facility] [address] [facility] [place] [address] Pharmacist1, [facility] [address] [facility] [place] [address] 2024 8:00 AM EDT Office Visit Family Practice [facility] [address] [place] [address] Linnea Booker MD [address] [place] [address] Scheduled Procedures Name Priority Associated Diagnoses Date/Ti me COLONOSCOPY FLEXIBLE PROXIMA L DIAGNOSTIC Recall History of colonic polyps Health Maintenance Due Date Last Done Comments Cologuard 1997 Fecal Occult Blood Test 1997 Sigmoidoscopy 1997 Zoster Vaccines (2 of 3) 01/06/2016 11/11/2015 Adult Wellness Visit 2018 Depression Screening 10/01/2021 10/01/2020 Albumin/Creatinine Ratio 07/25/202407/25/ 024, 12/11/2021, 10/01/2020, Additional history exists HbA1c 09/11/2024 03/14/2024, 05/0 02/2024, 07/25/2023, Additional history exists Diabetic Eye Exam 03/07/2025 03/07/2024, , 03/07/2024, Additional history exists Diabetic Foot Exam 03/14/2025 03/14/2024, 0 03/09/2023, 12/11/2021, Additional history exists GFR 03/14/2025 03/14/2024, 06/0 11/2022, 12/11/2021, Additional history exists Colonoscopy 03/16/2026 03/16/2023, 09/0 [...] Primary documented in this encounter Care Teams Volunteer Services Assistant Relationship Specialty Start Date End Date Linnea Booker MD [address] [place] [address] PCP - General Internal Medicine 04/28/21 documented as of this encounter
--- OUTSIDE RECORDS SUMMARY | 2024-11-14 00:58 | External Medical Summary | Summary of Care ---
Author Name Unknown Organization [facility] Address [address] [place] [address] Phone [phone] Care Team Providers Care Professor Of Special Education Name Role Phone Linnea Booker MD Primary Care Provider Reason for Visit * Reason Comments Diabetes Follow-Up Dosage Adjustment Via Phone (anticoag Cl inic) Encounter Details Date Type Department Care Team (Late st Contact Info) Description 09/03/2024 7:40 AM [facility] Telemedicine Pharmacy, [facility] [address] [place] [address] Pharmacist1, [facility] [address] [facility] [place] [address] Type 2 diabetes mellitus with hemoglobin A1c goal of less than 7.0% ([facility])* Allergies Active Allergy Reactions Criticality Noted Date Comments Metformin Diarrhea 05/18/2011 documented as of this encounter (statuses as of 09/03/2024) Medications ECOTRIN LOW STRENGTH 81 MG PO TBEC One pill by mouth once a day Active isosorbide mononitrate SA (IMDUR) 30 MG TB24 Take 1 Tablet by mouth in the morning. 7 Active Crowd CastTouch Ultra 2 w/Device Kit Use to test blood sugars three times daily. E11.9 1 Kit 1 Active Crowd CastTouch UltraSoft Lancets Use to test blood sugars [...] MG Oral Tablet (Cozaar)Indicatio ns:Atherosclerosi s of [place] coronary artery of [place] heart without angina pectoris,HTN, goal below 140/90 [...] days 1 Each 1 4 Active Pen [place] 32G X 4 MMIndications:Typ e 2 diabetes [...] Sublingual Tablet Sublingual (Nitrostat)Indica tions:Atheroscler osis of [place] coronary artery of mak[place] heart without angina pectoris PLACE 1 TABLET [...] meals. 540 Tablet 3 5 Active Insulin Degludec 100 UNIT/ML Subcutaneous Solution Pen-injector (Tresiba FlexTouch)Indicat ions:Type 2 diabetes mellitus with hemoglobin A1c goal of less than 7.0% (HCC) Inject 18 Units under the skin daily. 10 Each 3 5 Active Insulin Glargine Solostar 100 UNIT/ML Subcutaneous Solution Pen-injector (Basaglar KwikPen)Indicatio ns:Type 2 diabetes mellitus with hemoglobin A1c goal of less than 7.0% (HCC) Inject 15 Units under the skin in the morning. 15 mL 3 5 09/03/19 25 Discontin ued(Formu reji/Cost ) documented as of this encounter (statuses as of 09/03/2024) Active Problems Problem Noted Date Diagnosed Date Colon polyps 03/16/2023 Overview (03/16/2023): Two removed in 2022. Repeat 3 yrs. 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 Coronary atherosclerosis of mak[place] coronary donell ry 08/12/2010 Overview (08/12/2010): Right [...] as of this encounter (statuses as of 09/03/2024) Resolved Problems Problem Noted Date Diagnosed Date [...] as of this encounter (statuses as of 09/03/2024) Immunizations Name Administration Dates Next Due COVID-19 [...] No 03/11/2024 Does the household have a [facility] source [facility] income? (Household - for ages [...] money to get more. Never true 03/11/2024 Do you need food for this week? No 03/11/2024 Sex and Gender Information Value Date [...] this encounter Progress Notes * Steve Eldridge, [facility] - 09/03/2024 7:32 AM EST Images from the original note [...] agreed to participate. Total call duration was 18 minutes. DIABETES: Current diabetic medications: Jardiance 25 mg daily INCREASE: Prandin 2mg 2 tablets before breakfast, 2 tablets before lunch and 2 tablets dinner Basaglar 15 units daily Medication Injection Site: Abdomen Lifestyle: Diet: unchanged History of Treatment Barriers: Lifestyle: None Therapy considerations: Cost Medication: Metformin: EMILY - loose stools Glucose Review/SMBG: Readings obtained from patient device Hypoglycemia: Does your blood sugar go below 70 mg/dL? Yes, a couple Hyperglycemia symptoms present: none Goal <7 Recent [...] done Depression Screening 10/01/2021 Albumin/Creatinine Ratio 07/25/2024 HbA1c 09/11/2024 ASSESSMENT & PLAN: ICD-10-CM 1. Type 2 diabetes mellitus with hemoglobin A1c goal of less than 7.0% (HCC) E11.9 BG Readings - Blood sugars controlled. BG still rising Medications - Reviewed current regimen, patient is adherent to regimen. Glargine no longer on formulary - changed to Tresiba. Diet, Exercise, Lifestyle - No significant lifestyle changes since last visit. Discussed with patient today. He is trying to have protein for breakfast and it is helping some.. Patient is agreeable to wear Dexcom CGM. Patient aware to contact clinic if any hypoglycemia before next visit. MEDICATION CHANGES: yes, see below; preferred pharmacy: [facility] Medications: Jardiance 25 mg daily Prandin 2mg 2 tablets before breakfast, 2 tablets before lunch and 2 tablets dinner INCREASE: Tresiba 18 units daily HEALTH MAINTENANCE INTERVENTIONS: Labs: Ordered & Scheduled: HgA1c and Urine Microalbumin Immunizations: needs shingles Foot Exam: Up to Date Eye Exam: Up to Date Annual Wellness Visit: needs scheduled I spent a total of 30-39 minutes (exact time 34 mins) on the date of service in preparation, delivery, and documentation of the care provided to Florentino Normanfranchesca excluding any time spent in the performance of separately billed services or time spent by another provider/QHP. FOLLOW UP: Return to clinic in 4 weeks 2024 Steve Reid RPh, CACP, CDE Clinical Pharmacist Medication Therapy Management [facility] 09/03/2024 7:32 AM documented in this encounter Plan of Treatment Upcoming Encounters Date Type Department Care Team (Late st Contact Info) Description 2024 8:00 AM EDT Office Visit Family Practice [facility] [address] [place] [address] Linnea Booker MD [address] [place] [address] 2024 9:30 AM EDT Office Visit Pharmacy, [facility] [address] [facility] [address] [place] [address] Pharmacist1, [facility] [address] [facility] [place] [address] Scheduled Procedures Name Priority Associated Diagnoses Date/Ti [...] Primary documented in this encounter Care Teams Professor Of Special Education Relationship Specialty Start Date End Date Linnea Booker MD [address] [place] [address] PCP - General Internal Medicine 04/28/21 documented as of this encounter
--- OUTSIDE RECORDS SUMMARY | 2024-11-14 00:58 | External Medical Summary | Summary of Care ---
Author Name Unknown Organization [facility] Address [address] [place] [address] Phone [phone] Care Team Providers Care Compressed Gases Tester Name Role Phone Linnea Booker MD Primary Care Provider Reason for Visit * Reason Comments Diabetes Follow-Up Dosage Adjustment Via Phone (anticoag Cl inic) Encounter Details Date Type Department Care Team (Late st Contact Info) Description 09/03/2024 7:40 AM [facility] Telemedicine Pharmacy, [facility] [address] [place] [address] Pharmacist1, [facility] [address] [facility] [place] [address] Type 2 diabetes mellitus with hemoglobin A1c goal of less than 7.0% ([facility])* Allergies Active Allergy Reactions Criticality Noted Date Comments Metformin Diarrhea 05/18/2011 documented as of this encounter (statuses as of 09/03/2024) Medications ECOTRIN LOW STRENGTH 81 MG PO TBEC One pill by mouth once a day Active isosorbide mononitrate SA (IMDUR) 30 MG TB24 Take 1 Tablet by mouth in the morning. 7 Active 19payTouch Ultra 2 w/Device Kit Use to test blood sugars three times daily. E11.9 1 Kit 1 Active 19payTouch UltraSoft Lancets Use to test blood sugars [...] MG Oral Tablet (Cozaar)Indicatio ns:Atherosclerosi s of [place] coronary artery of [place] heart without angina pectoris,HTN, goal below 140/90 [...] days 1 Each 1 4 Active Pen [place] 32G X 4 MMIndications:Typ e 2 diabetes [...] Sublingual Tablet Sublingual (Nitrostat)Indica tions:Atheroscler osis of [place] coronary artery of [place] heart without angina pectoris PLACE 1 TABLET [...] Per HTN Protocol #27. Coronary atherosclerosis of [place] coronary donell ry 08/12/2010 Overview (08/12/2010): Right [...] No 03/11/2024 Does the household have a [facility] source [facility] income? (Household - for [...] this encounter Progress Notes * Steve Eldridge, [facility] - 09/03/2024 7:32 AM EST Images from [...] 8:00 AM EDT Office Visit Family Practice [facility] [address] [address] Linnea Booker MD [address] [place] [address] 2024 9:30 AM EDT Office Visit Pharmacy, [facility] [address] [facility] [address] Pharmacist1, [facility] [address] [facility] [place] [address] Scheduled Procedures Name Priority Associated Diagnoses Date/Ti [...] Primary documented in this encounter Care Teams Compressed Gases Tester Relationship Specialty Start Date End Date Linnea Booker MD [address] [place] [address] PCP - General Internal Medicine 04/28/21 documented as of this encounter
--- OUTSIDE RECORDS SUMMARY | 2024-11-14 00:58 | External Medical Summary ---
Author Name Unknown Address Unknown Organization [id number]:[facility] [place] - [address] [place] [address] Laboratory Report Ordering Provider Test Date Status RADHA DUNLAP V 2024 09:59:57 Final Normal: <30 mg/g creatinine< br/>High: 30-300 mg/g creatinine
Very High: >300 mg/g creatinine
Nephrotic: >2200 mg/g creatinine Observation Date Value Abnormality Reference (Units ) Status Albumin, Urine 2024 09:59:57 <1.20 (mg/dL) Final Creatinine, Urine 2024 09:59:57 52 (mg/dL) Final Albumin/Creatinine [Mass Ratio] in Urine 2024 09:59:57 <23 <30 (mg/g Creat) Final Performing Location [facility] [place] - [address] [place] [address]
--- OUTSIDE RECORDS SUMMARY | 2024-11-14 00:58 | External Medical Summary | Summary of Care ---
Author Name Unknown Organization [facility] Address [address] [place] [address] Phone [phone] Care Team Providers Care Kaiako Kura [place] Maori Name Role Phone Linnea Booker MD Primary Care Provider Reason for Visit * Reason Comments Follow Up Doing well, no cynthia rns. Encounter Details Date Type Department Care Team (Late st Contact Info) Description 2024 8:00 AM EDT [facility] [place] [address] Linnea Booker MD [address] [place] [address] Type 2 diabetes mellitus with hemoglobin A1c goal of less than 7.0% ([facility])*; HTN, goal below 140/90; Atherosclerosis of [place] coronary artery of [place] heart without angina pectoris; Thrombocytopenia (HCC) Allergies Active Allergy Reactions Criticality Noted Date Comments Metformin Diarrhea 05/18/2011 documented as of this encounter (statuses as of 2024) Medications ECOTRIN LOW STRENGTH 81 MG PO TBEC One pill by mouth once a day Active isosorbide mononitrate SA (IMDUR) 30 MG TB24 Take 1 Tablet by mouth in the morning. 7 Active ViVex Biomedical Ultra 2 w/Device Kit Use to test blood sugars three times daily. E11.9 1 Kit 1 Active ViVex Biomedical UltraSoft Lancets Use to test blood sugars [...] 100 MG Oral Tablet (Cozaar)Indication s:Atherosclerosis of [place] coronary artery of [place] heart without angina pectoris,HTN, goal below 140/90 TAKE ONE TABLET BY MOUTH EVERY MORNING 90 Tablet 3 4 Active ViVex Biomedical Ultra In Vitro Strip (Glucose Blood)Indications: Type [...] days 1 Each 1 4 Active Pen [place] 32G X 4 MMIndications:Type 2 diabetes mellitus [...] Sublingual Tablet Sublingual (Nitrostat)Indicat ions:Atheroscleros is of [place] coronary artery of [place] heart without angina pectoris PLACE 1 TABLET [...] Per HTN Protocol #27. Coronary atherosclerosis of [place] coronary donell ry 08/12/2010 Overview (08/12/2010): Right [...] No 2024 Does the household have a [facility] source of income? (Household - for ages [...] Sign Reading Time Taken Comments Blood Pressure 118/72 2024 7:54 AM EDT Pulse 62 2024 7:54 AM EDT Temperature - - Respiratory Rate - - Oxygen Saturation 98% 2024 7:54 AM EDT Inhaled Oxygen Concentration - - Weight 76.5 kg (168 lb 9.6 oz) 2024 7:54 A M EDT Height - - Body Mass Index 24.19 03/14/2024 7:57 AM EDT documented in this encounter Progress Notes * Linnea Booker MD - 2024 8:08 AM EDT Images from the original note were not included. Subjective Florentino Gonzalez is a 74 year old male that presents for Follow Up (Doing well, no concerns. ) History of Present Illness Florentino Gonzalez is a 74 year old male with diabetes and CAD presents for 6mo f/u. He reports stable weight, having lost 20 pounds over the past few years. He engages in physical activities such as walking and golfing, but notes that he does not exercise to the point of sweating frequently. He plans to increase his activity level with the onset of warmer weather and the reopening of the golf course. T2DM - [facility] pharmacy, monthly. Estimate A1c 8.4%. Tresiba increased. SGLT-2 inhibitor, stopped GLP-1. Cardiology - Cristóbal, saw in Jul. Increased norvasc to 5mg. Low platelets - stable He experiences occasional ear wax buildup, particularly in the right ear, which sometimes feels clogged. He has not had significant changes in vision, though he notes a slight change in one eye during his last eye exam in April. He has not seen a union contract representative since 2021, and reports no concerning skin changes. Colon cancer screening - colon polyps 2022, repeat 3 years Prostate cancer screening - last PSA 03/2024 Sees two granddaughters frequently. Current medications and allergies reviewed. Past medical history and problem list reviewed. Objective BP 118/72 (BP Site: Left Arm, BP Position: Sitting, BP Cuff Size: Regular) | Pulse 62 | Wt 168 lb 9.6 oz (76.5 kg) | SpO2 98% | BMI 24.19 kg/m² | BSA 1.94 m² BP Readings from Last 3 Encounters: 10/03/24 118/72 03/14/24 118/80 03/16/23 115/73 Wt Readings from Last 3 Encounters: 10/03/24 168 lb 9.6 oz (76.5 kg) 03/14/24 166 lb 12.8 oz (75.7 kg) 03/16/23 171 lb (77.6 kg) Physical Exam VITALS: P- 76 Physical Exam Vitals and nursing note reviewed. Constitutional: General: He is not in acute distress. Appearance: Normal appearance. He is not ill-appearing. HENT: Head: Normocephalic and atraumatic. Right Ear: External ear normal. There is impacted cerumen. Left Ear: Tympanic membrane, ear canal and external ear normal. There is no impacted cerumen. Mouth/Throat: Mouth: Mucous membranes are moist. Pharynx: Oropharynx is clear. No posterior oropharyngeal erythema. Eyes: General: No scleral icterus. Pupils: Pupils are equal, round, and reactive to light. Neck: Thyroid: No thyroid mass, thyromegaly or thyroid tenderness. Cardiovascular: Rate and Rhythm: Normal rate and regular rhythm. Heart sounds: No murmur heard. Pulmonary: Effort: Pulmonary effort is normal. Breath sounds: Normal breath sounds. Musculoskeletal: Right lower leg: No edema. Left lower leg: No edema. Lymphadenopathy: Cervical: No cervical adenopathy. Skin: General: Skin is warm and dry. Neurological: Mental Status: He is alert. Psychiatric: Mood and Affect: Mood normal. Behavior: Behavior normal. Results reviewed : CMP, Lipid Panel, Hemoglobin A1C, TSH, and CBC urine microalbumin Assessment and Plan Assessment & Plan Type 2 Diabetes Mellitus Challenges in managing blood glucose due to tomy phenomenon and carbohydrate intake. Improved CGM use with insulin therapy. Considering dietary changes for better glucose control. - Discussed dietary modifications emphasizing fiber and protein. - Encouraged continued CGM use. - Coordinated with MTM for treatment adjustments. Hypertension/CAD Variable blood pressure readings. Lightheadedness with higher amlodipine doses. Self-adjusted to 2.5 mg. Losartan may contribute to fluctuations. -at goal today, cont currenet regimen Coronary Artery Disease Exertional dyspnea possibly due to deconditioning. Engages in physical activities to manage condition. - Encourage regular physical activity to improve fitness and reduce dyspnea. - Monitor heart rate and symptoms during activity. General Health Maintenance Weight stabilization post weight loss. Plans to increase activity with warmer weather. - Encourage continued physical activity for cardiovascular health and diabetes management. - Discuss balanced diet and regular exercise for overall health. Type 2 diabetes mellitus with hemoglobin A1c goal of less than 7.0% (HCC) (Primary) - HEMOGLOBIN A1C; Future; Expected date: 2024 HTN, goal below 140/90 - BASIC METABOLIC PANEL; Future; Expected date: 2024 Atherosclerosis of [place] coronary artery of [place] heart without angina pectoris Thrombocytopenia (HCC) Wrap-Up Follow Up: Return in about 6 months (around 04/05/2025) for Labs Today, Return with Jhony. | For: Labs Today, Return with Jhony I spent a total of 30-39 minutes (exact time 31 mins) on the date of service in preparation, delivery, and documentation of the care provided to Florentino Gonzalez excluding any time spent in the performance of separately billed services. Text in this note was generated using an [employer] documentation service. I discussed the use of a device to record and summarize our discussion today. All persons present during the encounter consented to its use. documented in this encounter Plan of Treatment Upcoming Encounters Date Type Department Care Team (Late st Contact Info) Description 04/05/2025 8:20 AM EDT Office Visit Family Practice [facility] [address] [place] [address] Linnea Booker MD [address] [place] [address] Pending Results Name Type Priority Associated Diagnoses Date /Time HEMOGLOBIN A1C Lab Routine Type 2 diabetes mellitus with hemoglobin A1c goal of less than 7.0% (HCC) 2024 8:45 AM EDT BASIC METABOLIC PANEL Lab Routine HTN, goal below 140/90 2024 8:45 AM EDT Scheduled Orders Name Type Priority Associated Diagnoses Orde r Schedule HEMOGLOBIN A1C Lab Routine Type 2 diabetes mellitus with hemoglobin A1c goal of less than 7.0% (HCC) Expected: 2024, Expires: 11/03/2025 BASIC METABOLIC PANEL Lab Routine HTN, goal below 140/90 Expected: 2024, Expires: 2025 Scheduled Procedures Name Priority Associated Diagnoses Date/Ti [...] goal of less than 7.0% (HCC)- Primary HTN, goal below 140/90 Unspecified essential hypertension Atherosclerosis of [place] coronary artery of [place] heart without angina pectoris Thrombocytopenia (HCC) Thrombocytopenia, unspecified documented in this encounter Care Teams Kaiako Kura [place] Maori Relationship Specialty Start Date End Date Linnea Booker MD [address] [place] [address] PCP - General Internal Medicine 04/28/21 documented as of this encounter"
--- OUTSIDE RECORDS SUMMARY | 2024-11-14 00:58 | External Medical Summary ---
Author Name Unknown Address Unknown Organization K01:[facility] [place] [address] [place] [address] Laboratory Report Ordering Provider Test Date Status INOYEE 2024 08:45:46 Final Observation Date Value Abnormality Reference (Units ) Status MYCODE SPECIMEN-SST 2024 08:45:46 Freezing of extracted DNA, whole blood and/or serum. Final Performing Location LABORATORY C - [address] [place] [address]
--- OUTSIDE RECORDS SUMMARY | 2024-11-14 00:58 | External Medical Summary ---
Author Name Unknown Address Unknown Organization K0G:[facility] [place] [facility] - [address] [place] [address] Laboratory Report Ordering Provider Test Date Status FREDERICK COHN 2024 08:45:46 Final Observation Date Value Abnormality Reference (Units ) Status BUN 2024 08:45:46 21 Above high normal 6-20 (mg/dL) Final Creatinine 2024 08:45:46 0.8 0.6-1.2 (mg/dL) Final Glomerular filtration rate/1.73 sq M.predicted [Volume Rate/Area] in Serum, Plasma or Blood by Creatinine-based formula (CKD-EPI) 2024 08:45:46 >90 >=60 (mL/min) Final eGFR is calculated based on the CKD-EPI 2020 equation. Sodium 2024 08:45:46 139 135-146 (m mol/L) Final Potassium 2024 08:45:46 4.6 3.5-5.1 (m mol/L) Final Cl 2024 08:45:46 103 98-107 (mm ol/L) Final CO2 2024 08:45:46 24 22-32 (mmo l/L) Final Anion gap 2024 08:45:46 12 7-15 (mmol /L) Final Glucose 2024 08:45:46 166 Above high normal 70 -120 (mg/dL) Final Calcium 2024 08:45:46 9.0 8.4-10.2 ( mg/dL) Final Performing Location [facility]ATORY [facility] - [address] [place] [address]
--- OUTSIDE RECORDS SUMMARY | 2024-11-14 00:58 | External Medical Summary | Summary of Care ---
Author Name Unknown Organization [facility] Address [address] [place] [address] Phone [phone] Care Team Providers Care Chronometer Assembler And Adjuster Name Role Phone Linnea Booker MD Primary Care Provider Reason for Visit * Reason Comments Diabetes Follow-Up Dosage Adjustment In Person (Anticoag Cl inic) Encounter Details Date Type Department Care Team (Late st Contact Info) Description 2024 9:30 AM EDT Office Visit Pharmacy, [facility] [address] [place] [address] Pharmacist1, [facility] [address] [facility] [place] [address] Type 2 diabetes mellitus with hemoglobin A1c goal of less than 7.0% ([facility])* Allergies Active Allergy Reactions Criticality Noted Date [...] 100 MG Oral Tablet (Cozaar)Indication s:Atherosclerosis of [place] coronary artery of [place] heart without angina pectoris,HTN, goal below 140/90 [...] days 1 Each 1 4 Active Pen [place] 32G X 4 MMIndications:Type 2 diabetes mellitus [...] Sublingual Tablet Sublingual (Nitrostat)Indicat ions:Atheroscleros is of [place] coronary artery of [place] heart without angina pectoris PLACE 1 TABLET [...] Per HTN Protocol #27. Coronary atherosclerosis of [place] coronary donell ry 08/12/2010 Overview (08/12/2010): Right [...] Progress Notes * Steve Eldridge RPh - 2024 9:23 AM EDT Images from the original note were not included. Medication Therapy Disease [facility] - Diabetes Management Progress Note Florentino Gonzalez, identified by name and date of , is a 74 year old male being seen for diabetes management/education. Patient presents for return diabetic visit. DIABETES: Current diabetic medications: Jardiance 25 mg daily Prandin 2mg 2 tablets before breakfast, 2 tablets before lunch and 2 tablets dinner INCREASE: Glargine 18 units daily Medication Injection Site: Abdomen Lifestyle: Diet: unchanged History of Treatment Barriers: Lifestyle: None Therapy considerations: Cost Medication: Metformin: EMILY - loose stools Glucose Review/SMBG: Readings obtained from patient device Hypoglycemia: Does your blood sugar go below 70 mg/dL? Yes, overnight lows are probably false lows. Hyperglycemia symptoms present: none Goal <7 Recent [...] daily BP Readings from Last 3 Encounters: 10/03/24 118/72 03/14/24 118/80 03/16/23 115/73 Blood pressure at goal: yes HYPERLIPIDEMIA: Does patient have clinical ASCVD? Yes, is patient LDL less than 55 mg/dL? Yes HEALTH MAINTENANCE REVIEW: Health Maintenance Due Topic Date Due Zoster Vaccines (2 of 3) 01/06/2016 Adult Wellness Visit Never done Albumin/Creatinine Ratio 07/25/2024 HbA1c 09/11/2024 ASSESSMENT & PLAN: ICD-10-CM 1. Type 2 diabetes mellitus with hemoglobin A1c goal of less than 7.0% (HCC) E11.9 BG Readings - Blood sugars uncontrolled. Patient BG is still rising after meals and falling overnight. Medications - Reviewed current regimen, patient is adherent to regimen. We had a long discussion about the next step for him, which would be mealtime insulin. He stated he misses his lunch Prandin a lot and wants to work on getting the Prandin 3 times daily. He is going to [place] next week for 2 weeks and does not want to make any changes until he gets back. He will call with overnight lows. Diet, Exercise, Lifestyle - No significant lifestyle changes since last visit. Discussed with patient today. Patient is agreeable to wear Dexcom CGM. Patient aware to contact clinic if any hypoglycemia before next visit. MEDICATION CHANGES: no change Diabetic Medications: Jardiance 25 mg daily Prandin 2mg 2 tablets before breakfast, 2 tablets before lunch and 2 tablets dinner Glargine 18 units daily HEALTH MAINTENANCE INTERVENTIONS: Labs: Up to Date Immunizations: Up to Date Foot Exam: Up to Date Eye Exam: Up to Date Annual Wellness Visit: needs scheduled I spent a total of 30-39 minutes (exact time 35 mins) on the date of service in preparation, delivery, and documentation of the care provided to Florentino Gonzalez excluding any time spent in the performance of separately billed services or time spent by another provider/QHP. FOLLOW UP: Phone call follow up in 6 weeks 11/14/2024 Steve Reid RPh, DANKE Clinical Pharmacist - Heat Curer Medication [facility] 2024, 9:23 AM documented in this encounter Plan of Treatment Upcoming Encounters Date Type Department Care Team (Late st Contact Info) Description 11/14/2024 8:00 AM EDT Telemedicine Pharmacy, [address] [place] [address] Pharmacist1, [facility] [address] [place] [address] 04/05/2025 8:20 AM EDT Office Visit Family Practice [facility] [address] [place] [address] Linnea Booker MD [address] [place] [address] Pending Results Name Type Priority Associated Diagnoses Date /Time ALBUMIN / CREATININE RATIO, URINE Lab Routine Type 2 diabetes mellitus with hemoglobin A1c goal of less than 7.0% ([facility]) 2024 9:59 AM EDT Scheduled Orders Name Type Priority Associated Diagnoses Orde r Schedule ALBUMIN / CREATININE RATIO, URINE Lab Routine Type 2 diabetes mellitus with hemoglobin A1c goal of less than 7.0% ([facility]) Expected: 2024, Expires: 2025 Scheduled Procedures Name Priority Associated Diagnoses Date/Ti me COLONOSCOPY FLEXIBLE PROXIMA L DIAGNOSTIC Recall History of colonic polyps Health Maintenance Due Date Last Done Comments Cologuard 1997 Fecal Occult Blood Test 1997 Sigmoidoscopy 1997 Zoster Vaccines (2 of 3) 01/06/2016 11/11/2015 Adult Wellness Visit 2018 Albumin/Creatinine Ratio 07/25/2024 024, 12/11/2021, 10/01/2020, Additional history exists Diabetic Eye Exam 03/07/2025 03/07/2024, , 03/07/2024, Additional history exists Diabetic Foot Exam 03/14/2025 03/14/2024, 0 03/09/2023, 12/11/2021, Additional history exists HbA1c 04/05/2025 2024, 09/0 10/2023, 11/16/2023, Additional history exists Depression Screening 2025 2024 GFR 2025 2024, 09/0 10/2023, 12/13/2022, Additional history exists Colonoscopy 03/16/2026 03/16/2023, 12/2022, [...] Primary documented in this encounter Care Teams Chronometer Assembler And Adjuster Relationship Specialty Start Date End Date Linnea Booker MD [address] [place] [address] PCP - General Internal Medicine 04/28/21 documented as of this encounter
--- OUTSIDE RECORDS SUMMARY | 2024-11-14 00:58 | External Medical Summary | Summary of Care ---
Author Name Unknown Organization [facility] Address [address] [place] [address] Phone [phone] Care Team Providers Care Registered Nurse Supervisor Name Role Phone Linnea Booker MD Primary Care Provider Reason for Visit * Reason Comments Outpatient Testing Encounter Details Date Type Department Care Team (Late st Contact Info) Description 2024 10:00 AM EDT Laboratory Laboratory [facility] [place] [address] [place] [id number] [facility] [address] [facility] [place] [address] Type 2 diabetes mellitus with hemoglobin A1c goal of less than 7.0% ([facility]) Allergies Active Allergy Reactions Criticality Noted Date [...] 100 MG Oral Tablet (Cozaar)Indication s:Atherosclerosis of [place] coronary artery of [place] heart without angina pectoris,HTN, goal below 140/90 [...] days 1 Each 1 4 Active Pen [place] 32G X 4 MMIndications:Type 2 diabetes mellitus [...] Sublingual Tablet Sublingual (Nitrostat)Indicat ions:Atheroscleros is of [place] coronary artery of [place] heart without angina pectoris PLACE 1 TABLET [...] Per HTN Protocol #27. Coronary atherosclerosis of [place] coronary donell ry 08/12/2010 Overview (08/12/2010): Right [...] CG/0.3 mL, 12 YRS AND ABOVE, IM (PFIZER-Comirnat) 04/01/2023 COVID-19, mRNA, LNP-s, PF, B ooster, [...] No 2024 Does the household have a [facility] source of income? (Household - for [...] Description 11/14/2024 8:00 AM EDT Telemedicine Pharmacy, [facility] [address] [place] [address] Pharmacist1, [facility] [address] [place] [address] 04/05/2025 8:20 AM EDT Office Visit Family Practice [facility] [address] [place] [address] Linnea Booker MD [address] [place] [address] Pending Results Name Type Priority Associated Diagnoses Date /Time ALBUMIN / CREATININE RATIO, URINE Lab Routine Type 2 diabetes mellitus with hemoglobin A1c goal of less than 7.0% ([facility]) 2024 9:59 AM EDT Scheduled Procedures Name Priority Associated [...] 03/14/2024, 0 03/09/2023, 12/11/2021, Additional history exists Depression Screening 2025 [...] A1c goal of less than 7.0% (HCC) documented in this encounter Care Teams Registered Nurse Supervisor Relationship Specialty Start Date End Date Linnea Booker MD [address] [place] [address] PCP - General Internal Medicine 04/28/21 documented as of this encounter
--- OUTSIDE RECORDS SUMMARY | 2024-11-14 00:58 | External Medical Summary | Summary of Care ---
Author Name Unknown Organization [facility] Address [address] [place] [address] Phone [phone] Care Team Providers Care Utilization Management Manager Name Role Phone Linnea Booker MD Primary Care Provider Encounter Details Date Type Department Care Team (Late Contact Info) Description 08/02/2024 Population Health External Data Unspecified Department Allergies Active Allergy Reactions Criticality Noted Date Comments Metformin Diarrhea 05/18/2011 documented as of this encounter (statuses as of 08/02/2024) Medications ECOTRIN LOW STRENGTH 81 MG PO [...] hemoglobin A1c goal of less than 7.0% ([facility]) Use to read blood glucose. Change every [...] 100 MG Oral Tablet (Cozaar)Indication s:Atherosclerosis of [place] coronary artery of [place] heart without angina pectoris,HTN, goal below 140/90 [...] days 1 Each 1 4 Active Pen [place] 32G X 4 MMIndications:Type 2 diabetes mellitus [...] Sublingual Tablet Sublingual (Nitrostat)Indicat ions:Atheroscleros is of [place] coronary artery of [place] heart without angina pectoris PLACE 1 TABLET [...] Solostar 100 UNIT/ML Subcutaneous Solution Pen-injector (Basaglar KwikPen)Indication s:Type 2 diabetes mellitus with hemoglobin A1c goal of less than 7.0% (HCC) Inject 15 Units under the skin in the morning. 15 mL 3 5 Active documented as of this encounter (statuses as of 08/02/2024) Active Problems Problem Noted Date Diagnosed Date Colon polyps 03/16/2023 Overview (03/16/2023): Two removed in 2022. Repeat 3 yrs. 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 Coronary atherosclerosis of [place] coronary donell ry 08/12/2010 Overview (08/12/2010): Right [...] as of this encounter (statuses as of 08/02/2024) Resolved Problems Problem Noted Date Diagnosed Date [...] as of this encounter (statuses as of 08/02/2024) Immunizations Name Administration Dates Next Due COVID-19 [...] 03/11/2024 Does the household have a re gular [...] Description 08/03/2024 7:30 AM EST Telemedicine Pharmacy, [facility] [address] [facility] [place] [address] Pharmacist1, [facility] [address] [facility] [place] [address] 2024 8:00 AM EDT Office Visit Family Practice [facility] [address] [place] [address] Linnea Booker MD [address] [place] [address] Scheduled Procedures Name Priority Associated Diagnoses Date/Ti [...] 12/11/2021, Additional history exists Colonoscopy 03/16/2026 03/16/2023, 0 [...] Not on filedocumented as of this encounter Care Teams Utilization Management Manager Relationship Specialty Start Date End Date Linnea Booker MD [address] [place] [address] PCP - General Internal Medicine 04/28/21 documented as of this encounter
--- OUTSIDE RECORDS SUMMARY | 2024-11-14 00:59 | External Medical Summary | Summary of Care ---
Author Name Unknown Organization [facility] Address [address] [place] [address] Phone [phone] Care Team Providers Care Grain Cleaner And Transfer Operator Name Role Phone Linnea Booker MD Primary Care Provider Reason for Visit * Reason Comments eRx-Medication Refill Encounter Details Date Type Department Care Team (Late st Contact Info) Description 06/29/2024 Refill Family Practice [facility] [address] [place] [address] Linnea Booker MD [address] [place] [address] Type 2 diabetes mellitus with hemoglobin A1c goal of less than 7.0% ([facility]) Allergies Active Allergy Reactions Criticality Noted Date Comments Metformin Diarrhea 05/18/2011 documented as of this encounter (statuses as of 07/01/2024) Medications ECOTRIN LOW STRENGTH 81 MG PO TBEC One pill by mouth once a day Active isosorbide mononitrate SA (IMDUR) 30 MG TB24 Take 1 Tablet by mouth in the morning. 12/31/19 17 Active CRITICAL TECHNOLOGIESTouch Ultra 2 w/Device Kit Use to test [...] DAY 90 Tablet 3 08/27/19 24 Active Atorvastatin Calcium 80 MG Oral Tablet (Lipitor)Indicati ons:Dyslipidemia, goal LDL below 100 TAKE ONE TABLET BY MOUTH EVERY DAY 90 Tablet 3 11/02/19 24 Active Losartan Potassium 100 MG Oral Tablet (Cozaar)Indicatio ns:Atherosclerosi s of [place] coronary artery of [place] heart without angina pectoris,HTN, goal below 140/90 TAKE ONE TABLET BY MOUTH EVERY MORNING 90 Tablet 3 11/03/19 24 Active OneTouch Ultra In Vitro Strip [...] days 1 Each 1 03/14/20 24 Active Insulin Glargine Solostar 100 UNIT/ML Subcutaneous Solution Pen-injector (Basaglar [place])Indicatio ns:Type 2 diabetes mellitus with hemoglobin A1c goal of less than 7.0% (HCC) Inject 10 Units under the skin in the morning. Increase by 2 units every 3 days until fasting blood sugar <180. Max daily dose 30 units. 15 mL 3 04/09/20 24 Active Pen [place] 32G X 4 MMIndications:Typ e 2 diabetes [...] Sublingual Tablet Sublingual (Nitrostat)Indica tions:Atheroscler osis of [place] coronary artery of [place] heart without angina pectoris PLACE 1 TABLET UNDER THE TONGUE IF NEEDED FOR CHEST PAIN. MAY REPEAT EVERY 5 MINUTES UP TO 3 TIMES. IF CHEST PAIN CONTINUES, CALL [phone] Tablet 2 05/17/20 24 Active Repaglinide 2 MG Oral Tablet (Prandin)Indicati ons:Type 2 diabetes mellitus with hemoglobin A1c goal of less than 7.0% (HCC) Take 1 Tablet by mouth 2 times a day with morning and evening meals. 180 Tablet 3 05/18/20 24 Active Jardiance 25 MG Oral Tablet (Empagliflozin)In dications:Type 2 diabetes mellitus with hemoglobin A1c goal of less than 7.0% (HCC) TAKE ONE TABLET BY MOUTH EVERY DAY 90 Tablet 3 07/01/20 24 Active Jardiance 25 MG Oral Tablet (Empagliflozin)In dications:Type 2 diabetes mellitus with hemoglobin A1c goal of less than 7.0% (HCC) TAKE ONE TABLET BY MOUTH EVERY DAY 90 Tablet 3 07/05/20 23 024 Discontinued documented as of this encounter (statuses as of 07/01/2024) Active Problems Problem Noted Date Diagnosed Date Colon polyps 03/16/2023 Overview (03/16/2023): Two removed in 2022. Repeat 3 yrs. 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 Coronary atherosclerosis of [place] coronary donell ry 08/12/2010 Overview (08/12/2010): Right [...] as of this encounter (statuses as of 07/01/2024) Resolved Problems Problem Noted Date Diagnosed Date [...] as of this encounter (statuses as of 07/01/2024) Immunizations Name Administration Dates Next Due COVID-19 [...] encounter Miscellaneous Notes * Telephone Encounter - Jaylin Godinez [facility] - 07/01/2024 10:36 AM EST Signed Prescriptions: Disp Refills Jardiance 25 MG Oral Tablet (Empagliflozin)90 Tab*3 Sig: TAKE ONE TABLET BY MOUTH EVERY DAYAuthorizing Provider: LINNEA BOOKER User: JAYLIN GODINEZ Electronically signed by Jaylin Godinez [facility] at 07/01/2024 10:36 AM EST documented in this encounter Plan of Treatment Upcoming Encounters Date Type Department Care Team (Late st Contact Info) Description 07/13/2024 8:00 AM EST Telemedicine Pharmacy, [facility] [address] [facility] [place] [address] Pharmacist1, [facility] [address] [place] [address] 2024 8:00 AM EDT Office Visit Family Practice [facility] [address] [place] [address] Linnea Booker MD [address] [place] [address] Scheduled Procedures Name Priority Associated Diagnoses Date/Ti me COLONOSCOPY FLEXIBLE PROXIMA L DIAGNOSTIC Recall History of colonic polyps Health Maintenance Due Date Last Done Comments Cologuard 1997 Fecal Occult Blood Test 1997 Sigmoidoscopy 1997 Zoster Vaccines (2 of 3) 01/06/2016 11/11/2015 Adult Wellness Visit 2018 Depression Screening 10/01/2021 10/01/2020 Albumin/Creatinine Ratio 07/25/202407/25/2 024, 12/11/2021, 10/01/2020, Additional history exists HbA1c [...] or Tdap) 03/14/2034 03/14/2024, 01/11/2008 Pneumococcal Vaccine: 65+ Years Completed 02/21/2019, 01/25/2018, 11/04/2006 Influenza Vaccine [...] (HCC) documented in this encounter Care Teams Grain Cleaner And Transfer Operator Relationship Specialty Start Date End Date Linnea Booker MD [address] [place] [address] PCP - General Internal Medicine 04/28/21 documented as of this encounter
--- OUTSIDE RECORDS SUMMARY | 2024-11-14 00:59 | External Medical Summary | Summary of Care ---
Author Name Unknown Organization [facility] Address [address] [place] [place] [address] Phone [phone] Care Team Providers Care Stock Hanger Name Role Phone Linnea Booker MD Primary Care Provider Reason for Visit * Reason Comments Diabetes Follow-Up Dosage Adjustment Via Phone (ant[facility] in[facility]) Encounter Details Date Type Department Care Team (Late st Contact Info) Description 05/18/2024 8:30 AM [facility] Telemedicine Pharmacy, [facility] [address] [place] [address] Pharmacist1, [facility] [address] [facility] [place] [address] Type 2 diabetes mellitus with hemoglobin A1c goal of less than 7.0% ([facility])* Allergies Active Allergy Reactions Criticality Noted Date Comments Metformin Diarrhea 05/18/2011 documented as of this encounter (statuses as of 05/18/2024) Medications ECOTRIN LOW STRENGTH 81 MG PO [...] by mouth in the morning. 1 Active Jardiance 25 MG Oral Tablet (Empagliflozin)In dications:Type 2 diabetes mellitus with hemoglobin A1c goal of less than 7.0% (HCC) TAKE ONE TABLET BY MOUTH EVERY DAY 90 Tablet 3 3 Active Dexcom G7 SensorIndications :Type 2 diabetes [...] MG Oral Tablet (Cozaar)Indicatio ns:Atherosclerosi s of [place] coronary artery of [place] heart without angina pectoris,HTN, goal below 140/90 [...] 180 days 1 Each 1 4 Active Insulin Glargine Solostar 100 UNIT/ML Subcutaneous Solution Pen-injector (Maura Pool)Indicatio ns:Type 2 diabetes mellitus with hemoglobin A1c goal of less than 7.0% (HCC) Inject 10 Units under the skin in the morning. Increase by 2 units every 3 days until fasting blood sugar <180. Max daily dose 30 units. 15 mL 3 4 Active Pen [place] 32G X 4 MMIndications:Typ e 2 diabetes [...] Sublingual Tablet Sublingual (Nitrostat)Indica tions:Atheroscler osis of [place] coronary artery of [place] heart without angina pectoris PLACE 1 TABLET UNDER THE TONGUE IF NEEDED FOR CHEST PAIN. MAY REPEAT EVERY 5 MINUTES UP TO 3 TIMES. IF CHEST PAIN CONTINUES, CALL [phone] Tablet 2 4 Active Repaglinide 2 MG Oral Tablet (Prandin)Indicati ons:Type 2 diabetes mellitus with hemoglobin A1c goal of less than 7.0% (HCC) Take 1 Tablet by mouth 2 times a day with morning and evening meals. 180 Tablet 3 4 Active glipiZIDE ER 10 MG Oral Tablet Extended Release 24 HourIndications:T ype 2 diabetes mellitus with hemoglobin A1c goal of less than 7.0% (HCC) Take 1 Tablet by mouth 2 times a day with morning and evening meals. 180 Tablet 3 3 05/18/20 24 Discontin ued(Medic ation/Dos e Changed) Trulicity 1.5 MG/0.5ML Subcutaneous Solution Pen-injector (Dulaglutide)Laverne cations:Type 2 diabetes mellitus with hemoglobin A1c goal of less than 7.0% (HCC) INJECT 1.5MG UNDER SKIN ONCE A WEEK 2 mL 2 3 05/18/20 24 Discontin ued(Patie nt preferenc e/discont inuation) Trulicity 3 MG/0.5ML Subcutaneous Solution Pen-injector (Dulaglutide)Laverne cations:Type 2 diabetes mellitus with hemoglobin A1c goal of less than 7.0% (HCC) Inject 3 mg under the skin once a week. 6 mL 3 3 05/18/20 24 Discontin ued(Patie nt preferenc e/discont inuation) Repaglinide 2 MG Oral Tablet (Prandin)Indicati ons:Type 2 diabetes mellitus with hemoglobin A1c goal of less than 7.0% (HCC) Take 1 Tablet by mouth daily before breakfast. 90 Tablet 3 4 05/18/20 24 Discontin ued(Refil l) documented as of this encounter (statuses as of 05/18/2024) Active Problems Problem Noted Date Diagnosed Date Colon polyps 03/16/2023 Overview (03/16/2023): Two removed in 2022. Repeat 3 yrs. 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 Coronary atherosclerosis of [place] coronary donell ry 08/12/2010 Overview (08/12/2010): Right [...] as of this encounter (statuses as of 05/18/2024) Resolved Problems Problem Noted Date Diagnosed Date [...] as of this encounter (statuses as of 05/18/2024) Immunizations Name Administration Dates Next Due COVID-19 mRNA, LNP-s, No Pre serve, 2-Dose Series (Moderna) 09/10/2020,08/13/2020 COVID-19, MRNA-LNP, PF, 30 M CG/0.3 mL, 12 YRS AND ABOVE, IM (Big Contacts-Comirnat) 04/01/2023 COVID-19, mRNA, LNP-s, PF, B ooster, [...] this encounter Progress Notes * Steve Eldridge, [facility] - 05/18/2024 8:36 AM EST Images from the original note were not included. Medication Therapy Disease [facility] - Diabetes Management Progress Note Florentino Gonzalez, identified by name and date of , is a 73 year old male being seen for diabetes management/education. Patient for telephonic return diabetic visit. After connecting to the patient via telephone, the patient was identified by name and date of . Patient was then informed that this was a telephone call only visit. The patient agreed to participate. Visit Disposition: Routine follow-up Total call duration was 14 minutes. DIABETES: Current diabetic medications: Jardiance 25 mg daily STOP: Trulicity 3 mg weekly Prandin 2mg before breakfast START: Lantus 10 units daily. Increase by 2 units every 3 days until fast BG <180 Medication Injection Site: Abdomen Lifestyle: Diet: unchanged History of Treatment Barriers: Lifestyle: None Therapy considerations: Cost Medication: Metformin: EMILY loose stools Glucose Review/SMBG: Readings obtained from patient device Hypoglycemia: Does your blood sugar go below 70 mg/dL? Yes, once after lunch Hyperglycemia symptoms present: none Goal <7 Recent [...] 142/68 Blood pressure at goal: yes HYPERLIPIDEMIA: Patient is taking moderate or high intensity statin: yes - Atorvastatin 80 mg daily HEALTH MAINTENANCE REVIEW: Health Maintenance Due Topic Date Due Zoster Vaccines (2 of 3) 01/06/2016 Adult Wellness Visit Never done Depression Screening 10/01/2021 Albumin/Creatinine Ratio 07/25/2024 ASSESSMENT & PLAN: ICD-10-CM 1. Type 2 diabetes mellitus with hemoglobin A1c goal of less than 7.0% ([facility]) E11.9 BG Readings - Blood sugars uncontrolled. BG rising significantly after dinner. Medications - Reviewed current regimen, patient is adherent to regimen. Wants to stop Trulicity dueto cost Diet, Exercise, Lifestyle - No significant lifestyle changes since last visit. Discussed with patient today. Patient is agreeable to wear Dexcom CGM. Patient aware to contact clinic if any hypoglycemia before next visit. MEDICATION CHANGES: yes, see below; preferred pharmacy: [facility] Diabetic Medications: Jardiance 25 mg daily STOP: Trulicity 3 mg weekly ADD: Prandin 2mg before breakfast and dinner Basaglar 10 units daily HEALTH MAINTENANCE INTERVENTIONS: Phone call Labs: Up to Date Immunizations: needs shingles [...] FOLLOW UP: Phone call follow up in 8 weeks 07/13/2024 Steve Reid RPh, BAM, CDE Clinical Pharmacist Medication Therapy Management Clinic 05/18/2024 8:38 AM documented in this encounter Plan of Treatment Upcoming Encounters Date Type Department Care Team (Late st Contact Info) Description 07/13/2024 8:00 AM EST Telemedicine Pharmacy, [facility] [address] [facility] [place] [address] Pharmacist1, [facility] [address] [facility] [place] [address] 2024 8:00 AM EDT Office Visit Family Practice [facility] [address] [place] [address] Linnea Booker MD [address] [place] [address] Scheduled Procedures Name Priority Associated Diagnoses Date/Ti [...] Vaccine: 65+ Years Completed 02/21/2019, 01/25/2018, 11/04/2006 COVID-19 Vaccine Discontinued 04/01/2023, , 10/16/2021, Additional history exists Influenza Vaccine (FLU shot) Completed 03/14/2024, 06/11/2022, 06/12/2021, Additional history exists HPV (Gardasil) Vaccine Aged [...] Primary documented in this encounter Care Teams Stock Hanger Relationship Specialty Start Date End Date Linnea Booker MD [address] [place] [address] PCP - General Internal Medicine 04/28/21 documented as of this encounter
--- OUTSIDE RECORDS SUMMARY | 2024-11-14 00:59 | External Medical Summary | Summary of Care ---
Author Name Unknown Organization [facility] Address [address] [place] [facility] [address] Phone [phone] Care Team Providers Care Mess Cook Name Role Phone Linnea Booker MD Primary Care Provider Reason for Visit * Reason Comments eRx-Medication Refill Encounter Details Date Type Department Care Team (Late st Contact Info) Description 05/16/2024 Refill Family Practice [facility] [place] [address] Linnea Booker MD [address] [place] [address] Atherosclerosis of [place] coronary artery of [place] heart without angina pectoris Allergies Active Allergy Reactions Criticality Noted Date Comments Metformin Diarrhea 05/18/2011 documented as of this encounter (statuses as of 05/17/2024) Medications Medication Sig Dispensed Refills Start Date End Date Status ECOTRIN LOW STRENGTH 81 MG PO TBEC One pill by mouth once a day Active isosorbide mononitrate SA (IMDUR) 30 MG TB24 Take 1 Tablet by mouth in the morning. 12/30/2016 Active OneTouch Ultra 2 w/Device Kit Use to test blood sugars three times daily. E11.9 1 Kit 07/25/2020 Active OneTouch UltraSoft Lancets Use to test blood sugars three times daily. E11.9 300 Each 3 07/25/2020 Active Metoprolol Succinate ER 25 MG Oral Tablet Extended Release 24 Hour (toPROL XL) Take 0.5 Tablets by mouth in the morning. 01/15/2021 Active glipiZIDE ER 10 MG Oral Tablet Extended Release 24 HourIndications:Typ e 2 diabetes mellitus with hemoglobin A1c goal of less than 7.0% (HCC) Take 1 Tablet by mouth 2 times a day with morning and evening meals. 180 Tablet 3 04/15/2023 Active Trulicity 1.5 MG/0.5ML Subcutaneous Solution Pen-injector (Dulaglutide)Indica tions:Type 2 diabetes mellitus with hemoglobin A1c goal of less than 7.0% (HCC) INJECT 1.5MG UNDER SKIN ONCE A WEEK 2 mL 2 06/08/2023 Active Trulicity 3 MG/0.5ML Subcutaneous Solution Pen-injector (Dulaglutide)Indica tions:Type 2 diabetes mellitus with hemoglobin A1c goal of less than 7.0% (HCC) Inject 3 mg under the skin once a week. 6 mL 3 06/24/2023 Active Jardiance 25 MG Oral Tablet (Empagliflozin)Laverne cations:Type 2 diabetes mellitus with hemoglobin A1c goal of less than 7.0% (HCC) TAKE ONE TABLET BY MOUTH EVERY DAY 90 Tablet 3 07/05/2023 Active Dexcom G7 SensorIndications:T ype 2 diabetes mellitus with hemoglobin A1c goal of less than 7.0% (HCC) Use to read blood glucose. Change every 10 days. DX: E11.9 3 Each 11 08/01/2023 Active amLODIPine Besylate 2.5 MG Oral Tablet (Norvasc)Indication s:HTN, goal below 140/90 TAKE ONE TABLET BY MOUTH EVERY DAY 90 Tablet 3 08/27/2023 Active Atorvastatin Calcium 80 MG Oral Tablet (Lipitor)Indication s:Dyslipidemia, goal LDL below 100 TAKE ONE TABLET BY MOUTH EVERY DAY 90 Tablet 3 11/02/2023 Active Losartan Potassium 100 MG Oral Tablet (Cozaar)Indications :Atherosclerosis of [place] coronary artery of [place] heart without angina pectoris,HTN, goal below 140/90 TAKE ONE TABLET BY MOUTH EVERY MORNING 90 Tablet 3 11/03/2023 Active Repaglinide 2 MG Oral Tablet (Prandin)Indication s:Type 2 diabetes mellitus with hemoglobin A1c goal of less than 7.0% (HCC) Take 1 Tablet by mouth daily before breakfast. 90 Tablet 3 11/16/2023 Active OneTouch Ultra In Vitro Strip (Glucose Blood)Indications:T ype 2 diabetes mellitus with hemoglobin A1c goal of less than 7.0% (HCC) USE TO TEST THREE TIMES A DAY 300 Strip 3 12/06/2023 Active Zoster Vac Recomb Adjuvanted 50 MCG/0.5ML Intramuscular Suspension Reconstituted (Shingrix)Indicatio ns:Need for shingles vaccine Inject 0.5 mL into a large muscle now and repeat dose in 60 to 180 days 1 Each 1 03/14/2024 Active Insulin Glargine Solostar 100 UNIT/ML Subcutaneous Solution Pen-injector (Basaglar KwikPen)Indications :Type 2 diabetes mellitus with hemoglobin A1c goal of less than 7.0% (HCC) Inject 10 Units under the skin in the morning. Increase by 2 units every 3 days until fasting blood sugar <180. Max daily dose 30 units. 15 mL 3 04/09/2024 Active Pen [place] 32G X 4 MMIndications:Type 2 diabetes mellitus with hemoglobin A1c goal of less than 7.0% (HCC) Use as directed daily. To inject Basaglar. DX: E11.9 100 Each 3 04/13/2024 Active BD Pen Needle Mini U/F 31G X 5 MM (Insulin Pen Needle)Indications: Type 2 diabetes mellitus with hemoglobin A1c goal of less than 7.0% (HCC) For use with long-acting insulin pen daily. 100 Each 4 04/13/2024 Active Nitroglycerin 0.4 MG Sublingual Tablet Sublingual (Nitrostat)Indicati ons:Atherosclerosis of [place] coronary artery of [place] heart without angina pectoris PLACE 1 TABLET UNDER THE TONGUE IF NEEDED FOR CHEST PAIN. MAY REPEAT EVERY 5 MINUTES UP TO 3 TIMES. IF CHEST PAIN CONTINUES, CALL [phone] Tablet 2 05/17/2024 Active Nitroglycerin 0.4 MG Sublingual Tablet Sublingual (Nitrostat)Indicati ons:Atherosclerosis of [place] coronary artery of [place] heart without angina pectoris One tablet under tongue if needed for chest pain. May repeat 3 times. If chest pain continues, call 911 25 Tablet 2 12/11/2021 4 Discontinued documented as of this encounter (statuses as of 05/17/2024) Active Problems Problem Noted Date Diagnosed Date Colon polyps 03/16/2023 Overview: Two removed in 2022. Repeat 3 yrs. 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 Coronary atherosclerosis of [place] coronary donell ry 08/12/2010 Overview: Right Drug eluting stent Right 100 % occlusion LAD 50 -60 % LAD ANGIOPLASTY WITH CORONARY STENT- RCA Drug elutin g stent 08/12/2010 OLD MYOCARDIAL INFARCT- Inferior 08/12/2010 DYSLIPIDEMIA, GOAL LDL BELOW 100 06/19/2009 Overview: Per Lipid Taxonomy. Type 2 diabetes mellitus wit h hemoglobin A1c goal of less than 7.0% 05/08/2009 Overview: Per Diabetes Taxonomy. ICD-10 update of inactive term documented as of this encounter (statuses as of 05/17/2024) Resolved Problems Problem Noted Date Diagnosed Date Resolved Date AMI (acute myocardial infarction) 01/25/2018 05/29/2018 HTN, GOAL BELOW 130/80 08/06/200903/02 Overview: Per HTN Taxonomy. Type 2 diabetes mellitus wit h hemoglobin A1c goal of less than 7.0% 11/04/2006 05/08/2009 Overview: Per Diabetes Taxonomy. ICD-10 update of inactive term ADVANCE DIRECTIVE INFORMATION 01/13/2005 12/30/2016 Overview: booklet offered PURE HYPERCHOLESTEROLEM 10/18/200206/10 Overview: Per Lipid Taxonomy. HTN, goal below 140/90 10/18/200208/06 Overview: Per HTN Taxonomy. documented as of this encounter (statuses as of 05/17/2024) Immunizations Name Administration Dates Next Due COVID-19 [...] Assigned at Male 02/21/2019 10:03 AM EDT Gender Identity Male 02/21/2019 10:03 AM EDT Sexual Orientation Straight 02/25/2023 9: 46 AM EDT Sexual Orientation Choose not to disclose 2022 9:46 AM EDT Job Start Date Occupation Industry Not on file Not on file Not on file documented as of this encounter Miscellaneous Notes * Telephone Encounter - Toro Acevedo [facility] - 05/17/2024 1:59 PM ESTSigned Prescriptions: Disp Refills Nitroglycerin 0.4 MG Sublingual Tablet Sub*25 Tab*2 Sig: PLACE 1TABLET UNDER THE TONGUE IF NEEDED FOR CHEST PAIN. MAY REPEAT EVERY 5 MINUTES UP TO 3 TIMES. IF CHEST PAIN CONTINUES, CALL 911Authorizing Provider: LINNEA BOOKER User: TORO ACEVEDO documented in this encounter Plan of Treatment Upcoming Encounters Date Type Department Care Team (Late st Contact Info) Description 05/18/2024 8:30 AM EST Telemedicine Pharmacy, [facility] [address] [place] [address] Pharmacist1, [facility] [address] [facility] [place] [address] 2024 8:00 AM EDT Office Visit Family Practice [facility] [address] [facility] [place] [address] Linnea Booker MD [address] [facility] [place] [address] Scheduled Procedures Name Priority Associated Diagnoses Date/Ti [...] 12/11/2021, Additional history exists Colonoscopy 03/16/2026 03/16/2023, 090 [...] as of this encounter Visit Diagnoses Diagnosis Atherosclerosis of [place] coronary artery of [place] heart without angina pectoris documented in this encounter Care Teams Mess Cook Relationship Specialty Start Date End Date Linnea Booker MD [address] [place] [address] PCP - General Internal Medicine 04/28/21 documented as of this encounter
[2024-11-14 02:05] LABS: ANTI-Xa, UFH(UnfractionatedHep 0.23 IU/ml (0.3-0.7)
[2024-11-14 05:59] LABS: Basophils # (auto) 0.02 K/uL (0.00-0.20); Basophils % (auto) 0.2 %; Eosinophils # (auto) 0.16 K/uL (0.00-0.50); Eosinophils % (auto) 1.2 %; Hematocrit (blood only) 24.5 % (42.0-52.0); Hemoglobin 7.8 g/dl (14.0-18.0); Immature Granulocytes # (auto) 0.14 K/uL (0.01-0.20); Immature Granulocytes % (auto) 1.1 %; Lymphocytes # (auto) 0.89 K/uL (1.20-3.40); Lymphocytes % (auto) 6.9 %; Mean Corpuscular Hemoglobin 25.4 pg (25.0-34.0); Mean Corpuscular Hgb Conc 31.8 g/dL (32.0-36.0); Mean Corpuscular Volume 79.8 fL (80.0-100.0); Mean Platelet Volume 11.4 fL (9.4-12.4); Monocytes # (auto) 0.85 K/uL (0.11-0.59); Monocytes % (auto) 6.6 %; Neutrophils # (auto) 10.84 K/uL (1.40-6.50); Nucleated RBC # (auto) 0.02 K/uL (0.00-0.12); Nucleated RBC % (auto) 0.2 %; Platelet Count 152 K/uL (130-400); RDW Coefficient of Variation 16.9 % (11.5-14.5); RDW Standard Deviation 46.8 fL (36.4-46.3); Red Blood Count 3.07 M/uL (4.70-6.10)
--- OUTSIDE RECORDS SUMMARY | 2024-11-14 06:01 | External Medical Summary | Summary of Care ---
Author Name Unknown Organization [facility] Address [address] [place] [address] Phone [phone] Care Team Providers Care Ethyl Blender Name Role Phone Linnea Booker MD Primary Care Provider Encounter Details Date Type Department Care Team (Latest Contact Info) Description 11/06/2024 2:15 PM EDT - 11/06/2024 11:59 PM EDT Hospital Encounter Radiology Film File [address] [place] [address] Discharge Disposition: Home - Self Care Allergies Active Allergy Reactions Criticality Noted Date [...] days 1 Each 1 4 Active Pen [place] 32G X 4 MMIndications:Type 2 diabetes mellitus [...] Sublingual Tablet Sublingual (Nitrostat)Indicat ions:Atheroscleros is of [place] coronary artery of [place] heart without angina pectoris PLACE 1 TABLET [...] A1c goal of less than 7.0% ([facility]) Inject 18 Units under the skin daily. 30 mL 3 5 Active Atorvastatin Calcium 80 MG Oral Tablet (Lipitor)Indicatio ns:Dyslipidemia, goal LDL below 100 TAKE ONE TABLET BY MOUTH EVERY DAY 90 Tablet 3 5 Active Losartan Potassium 100 MG Oral Tablet (Cozaar)Indication s:Atherosclerosis of [place] coronary artery of [place] heart without angina pectoris,HTN, goal below 140/90 [...] Per HTN Protocol #27. Coronary atherosclerosis of [place] coronary donell ry 08/12/2010 Overview (08/12/2010): Right [...] CG/0.3 mL, 12 YRS AND ABOVE, IM [facility] 04/01/2023 COVID-19, mRNA, LNP-s, PF, B ooster, [...] No 2024 Does the household have a [facility]ension stand[facility] hospitalr source of income? (Household - for ages [...] Care Team (Late st Contact Info) Description 11/15/2024 8:00 AM EDT Hospital Encounter OR [facility], Operating [facility], [facility] [address] [place] [phone] [facility] [address] [place] [address] 11/15/2024 8:00 AM EDT Appointment Radiology, [facility] [address] [place] [address] 11/15/2024 8:00 AM EDT - 11/15/2024 9:00 AM EDT Surgery OR [facility], Operating Room, [facility] [address] [place] [phone] [facility] [address] [place] [address] PRE / POST CARE 11/21/2024 11:45 AM EDT Imaging Radiology [facility]st [facility] [address] [place] [phone] 11/30/2024 10:20 AM EDT Office Visit Family [facility] [address] [place] [address] Linnea Booker MD [address] [place] [address] 04/05/2025 8:20 AM EDT Office Visit [facility] [address] [place] [address] Linnea Booker MD [address] [place] [address] Scheduled Procedures Name Priority Associated Diagnoses Date/Ti me PRE / POST CARE Metastases to the liver (HCC) 11/15/2024 8:00 AM EDT COLONOSCOPY FLEXIBLE PROXIMAL DIAGNOSTIC Recall History of colonic polyps Health [...] 11/06/2024, Additional history exists Colonoscopy 03/16/2026 03/16/2023, 090 [...] study not interpreted or resulted by a [facility] or [facility] contracted radiologist. us Linnea Booker MD RAD CT Final Result documented in this encounter Care Teams Ethyl Blender Relationship Specialty Start Date End Date Linnea Booker MD [address] [place] [address] PCP - General Internal Medicine 04/28/21 documented as of this encounter
--- OUTSIDE RECORDS SUMMARY | 2024-11-14 06:01 | External Medical Summary | Summary of Care ---
Author Name Unknown Organization [facility] Address [address] [place] [address] Phone [phone] Care Team Providers Care Wire Bound Box Machine Helper Name Role Phone Linnea Booker MD Primary Care Provider Reason for Visit * Reason Onset Date Comments Advice 11/08/2024 Encounter Details Date Type Department Care Team (Late st Contact Info) Description 11/08/2024 Telephone Family Practice [facility] [address] [place] [address] Linnea Booker MD [address] [place] [address] Advice Allergies Active Allergy Reactions Criticality Noted Date [...] days 1 Each 1 4 Active Pen [place] 32G X 4 MMIndications:Type 2 diabetes mellitus [...] Sublingual Tablet Sublingual (Nitrostat)Indicat ions:Atheroscleros is of [place] coronary artery of ak chin heart without angina pectoris PLACE 1 TABLET [...] 100 MG Oral Tablet (Cozaar)Indication s:Atherosclerosis of [place] coronary artery of [place] heart without angina pectoris,HTN, goal below 140/90 [...] Per HTN Protocol #27. Coronary atherosclerosis of ak [place] coronary donell ry 08/12/2010 Overview (08/12/2010): Right [...] encounter Miscellaneous Notes * Telephone Encounter - Millie Prince LPN - 11/13/2024 1:32 PM EDT Note from yesterday's OV faxed to [facility] ED along with resulted Labs from yesterday. Other labs stillin process. Also PH discharge summary. * Telephone Encounter - Linnea Booker MD - 11/13/2024 1:12 PM EDT Discussed with Dr Bo. Anti-coagulation is risky given Hg drop of unclear etiology. Given overallpicture of clot and likely GI bleed, need for biopsy of likely pancreatic CA, may need to be inpatient for workup and bx. Called and spoke with patient. No melena. Stools darker now that taking oral iron. Yesterday could walk around no problem and had appts all day until 8pm. Today can't be far from a chair because legsfeel really tired, "." BP 134/72. Has NOT given himself any lovenox. picking up now. Encouraged him to call her, and if she hasn't taken if from pharmacy she should not pick it up. Recommended return to ED, this time at [facility]. At a minimum need repeat labs to make sure hasn't dropped Hg again. Anticipate admission for biopsy, possibly with heparin gtt. May need EGD. Called [facility] ED and spoke with charge nurse Hermelinda. Nursing: Can you please fax to [facility] ED note from yesterday, any labs we horacio as well as labs and imaging reports from [facility]. Images [facility] already pushed to [facility] PACS. * Telephone Encounter - Linnea Booker MD - 11/13/2024 12:08 PM EDT Spoke with Mirian in interventional radiology. Sirena CARPENTER was on the phone with patient. Gave him instructions to not start lovenox given need 48hrs hold and he is scheduled for bx AM. This seems reasonable given clot is superficial. No one has checked his INR since new sx/dx. Do not want him waiting until day of in case it is elevated. Tried to call patient. No answer. Generic voicemail. Likely hypercoagulable with splenic vein thrombosis. Will see if I can get Hem/Onc thoughts about whole picture. * Telephone Encounter - Linnea Booker MD - 11/12/2024 4:20 PM EDT Interventional Radiology - I had thought patient had coagulation studies done at [facility], but was just informed he did not. Are there any other additional labs that we should be drawing in preparation? * Telephone Encounter - Linnea Booker MD - 11/09/2024 2:29 PM EDT Update from Nelly at [facility]. Hg dropped to 6 this AM. Gave two units pRBC. Not having melena. BUN is up, but is dehydrated. Platelets 208, normal white count. % sat 4, iron 14, ferritin 58. MCV low. Will need EGD and perhaps colonoscopy. Still working on arranging bx next week with [facility]. Will fax labs and d/c summary to our direct clinic fax. * Telephone Encounter - Linnea Booker MD - 11/09/2024 7:40 AM EDT Called Nelly. Patient planned to be discharged this AM. Pathology is short staffed, so if they did biopsy would be send out and would take weeks. Spoke with Dr Mays. He is going to check with a colleague to see if he can do biopsy next weekat [facility]. Anemia is new, very iron deficient. Got IV iron, no blood. If doesn't work with [facility], Nelly will let me know and I can arrange at [facility]. Will see if we can get PACS images pushed from [facility]. * Telephone Encounter - Michelle Acosta LPN - 11/08/2024 4:45 PM EDT Nelly calling from [facility] Gastro inpatient team. Nelly wants Linnea Booker MD to call her tomorrow to go over care/plan (info sent via teams). Cameron fax over all hospital notes/imaging to office @ [phone]. Patient went to [facility] ED 11/06-11/07 with concerns of dizziness and transferred to in [facility] on 11/07 due to findings, new Dx Pancreatic mass with mets to the liver. Nelly states ifthey do the Bx at [facility] that due to short staffing it will be weeks to get the results back. She is asking [facility] f[facility]u apt to get orders for US guided bx of liver so we can start the process for patient. Patient is aware of results. Can contact Nelly with any questions at [phone]. Request orders for US guided Bx of liver PIPER Scheduled [facility] f/u apt on 11/12 @ 1:20 PM. * Telephone Encounter - Jeff Morris OSA - 11/08/2024 4:43 PM EDT Reason for patient's call: Nelly Robles from gastro inpatient team asking to talk with nurse Caller was transferred to [place] at the nurse line. documented in this encounter Plan of Treatment Upcoming Encounters Date Type Department Care Team (Late st Contact Info) Description 11/15/2024 8:00 AM EDT Hospital Encounter OR [facility], Operating Room, [facility] - 4th Floor [address] [place] [address] [place] [phone] [facility], In And Out Surgery [address] [address] 11/15/2024 8:00 AM EDT Appointment Radiology, [facility] [address] [place] [address] 11/15/2024 8:00 AM EDT - 11/15/2024 9:00 AM EDT Surgery OR [facility], Operating Room, [facility] - 4th Floor [address] [place] [address] [facility], In And Out Surgery [address] [place] [address] PRE / POST CARE 11/21/2024 11:45 AM EDT Imaging Radiology [facility] 1st [facility] [address] [phone] 11/30/2024 10:20 AM EDT Office Visit [facility] [address] [address] Linnea Booker MD [address] [place] [address] 04/05/2025 8:20 AM EDT Office Visit [facility] [address] [address] Linnea Booker MD [address] [place] [address] Scheduled Orders Name Type Priority Associated Diagnoses Orde r Schedule IR BIOPSY Medical Imaging Routine Metastases to the liver (HCC) Expected: 11/19/2024, Expires: 12/13/2025 PT INR Lab Routine Metastases to the liver (HCC) Abnormal LFTs Expected: 11/13/2024 (Approximate), Expires: 11/13/2025 APTT Lab Routine Metastases to the liver (HCC) Abnormal LFTs Expected: 11/13/2024 (Approximate), Expires: 11/13/2025 Scheduled Procedures Name Priority Associated Diagnoses Date/Ti tn PRE / POST CARE Metastases to the [...] as of this encounter Visit Diagnoses Diagnosis Metastases to the liver (HCC)- Primary Secondary malignant neoplasm of liver Abnormal LFTs Other abnormal blood chemistry Anemia, unspecified type Metastases to the liver (HCC) Secondary malignant neoplasm of liver documented in this encounter Care Teams Wire Bound Box Machine Helper Relationship Specialty Start Date End Date Linnea Booker MD [address] [place] [address] PCP - General Internal Medicine 04/28/21 documented as of this encounter
--- OUTSIDE RECORDS SUMMARY | 2024-11-14 06:01 | External Medical Summary | Summary of Care ---
Author Name Unknown Organization [facility] Address [address] [place] [address] Phone [phone] Care Team Providers Care Film Examiner Name Role Phone Linnea Booker MD Primary Care Provider Reason for Visit * Reason Onset Date Comments Advice 11/13/2024 Radiology report Encounter Details Date Type Department Care Team (Late st Contact Info) Description 11/13/[address] [facility] [address] [place] [address] Linnea Booker MD [address] [place] [address] Advice (Radiology report ) Allergies Active Allergy Reactions Criticality Noted Date [...] days 1 Each 1 4 Active Pen [place] 32G X 4 MMIndications:Type 2 diabetes mellitus [...] Sublingual Tablet Sublingual (Nitrostat)Indicat ions:Atheroscleros is of [place] coronary artery of eyak heart without angina pectoris PLACE 1 TABLET [...] 100 MG Oral Tablet (Cozaar)Indication s:Atherosclerosis of [place] coronary artery of ey[place] heart without angina pectoris,HTN, goal below 140/90 [...] the morning. For 45 days. 18 mL 5 Active documented as of this encounter (statuses as of 11/13/2024) Active Problems Problem Noted Date Diagnosed Date Pancreatic mass 11/13/2024 Liver masses 11/13/2024 Superficial vein thrombosis 11/13/2024 Elevated CA 19-9 level 11/13/2024 Colon polyps 03/16/2023 Overview (03/16/2023): Two removed in 2022. Repeat 3 yrs. 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 Coronary atherosclerosis of eyak coronary donell ry 08/12/2010 Overview (08/12/2010): Right [...] No 2024 Does the household have a [facility] source of income? (Household - [...] encounter Miscellaneous Notes * Telephone Encounter - Marciano Che LPN - 11/13/2024 2:25 PM EDT Providers are aware and the pt was sent to the ED. Called Radiology and informed them * Telephone Encounter - Marciano Che LPN - 11/13/2024 2:16 PM EDT "Superficial occluding thrombus detected within the right basilic vein...." See Imaging from [facility]' Sent TT and teams message * Telephone Encounter - Jr Camacho OSA - 11/13/2024 2:16 PM EDT Reason for patient's call: Brice is calling from Radiology department and wants to know if the provider received these results yet. This is for the VASC DUPLEX VENOUS UE UNILAT Please call him back when this is received. Anjana Martini DO was the provider Recipient Linnea Booker MD * Telephone Encounter - Christina Tyson OSA - 11/13/2024 1:13 PM EDT Reason for patient's call: Brice from Dr. Ward's office is calling, (Radiology), Dr. Martini is theordering doctor, he wants to know if she has gotten the report? No DNL available Please call him back at [phone] documented in this encounter Plan of Treatment Upcoming Encounters Date Type Department Care Team (Late st Contact Info) Description 11/15/2024 8:00 AM EDT Hospital Encounter OR [facility], Operating Room, [facility] - 4th Floor [address] [address] [facility], In And Out Surgery [address] [place] [address] 11/15/2024 8:00 AM EDT Appointment Radiology, [facility] [address] [facility] [address] 11/15/2024 8:00 AM EDT - 11/15/2024 9:00 AM EDT Surgery OR [facility], Operating Room, [facility] Floor [address] [place] [address] [facility], In And Out Surgery [address] [place] [address] PRE / POST CARE 11/21/2024 11:45 AM EDT Imaging Radiology [facility] 1st [facility] [address] [place] [address] 11/30/2024 10:20 AM EDT Office Visit [facility] [address] [address] Linnea Booker MD [address] [place] [address] 04/05/2025 8:20 AM EDT Office Visit [facility] [address] [address] Linnea Booker MD [address] [place] [address] Scheduled Procedures Name Priority Associated Diagnoses Date/Ti [...] filedocumented as of this encounter Care Teams Film Examiner Relationship Specialty Start Date End Date Linnea Booker MD [address] [place] [address] PCP - General Internal Medicine 04/28/21 documented as of this encounter
--- OUTSIDE RECORDS SUMMARY | 2024-11-14 06:01 | External Medical Summary | Summary of Care ---
Author Name Unknown Organization [facility] Address [address] [place] [address] Phone [phone] Care Team Providers Care Paper Ruler Name Role Phone Linnea Booker MD Primary Care Provider Encounter Details Date Type Department Care Team (Latest Contact Info) Description 11/06/2024 1:20 PM EDT - 11/06/2024 2:14 PM EDT Hospital Encounter Radiology Film File [address] [place] [address] Discharge Disposition: Home - Self [...] days 1 Each 1 4 Active Pen [place] 32G X 4 MMIndications:Type [...] Sublingual Tablet Sublingual (Nitrostat)Indicat ions:Atheroscleros is of [place] coronary artery of [place] tribe heart without angina pectoris PLACE 1 [...] A1c goal of less than 7.0% ([facility]) Inject 18 Units under the skin daily. 30 mL 3 5 Active Atorvastatin Calcium 80 MG Oral Tablet (Lipitor)Indicatio ns:Dyslipidemia, goal LDL below 100 TAKE ONE TABLET BY MOUTH EVERY DAY 90 Tablet 3 5 Active Losartan Potassium 100 MG Oral Tablet (Cozaar)Indication s:Atherosclerosis of [place] coronary artery of [place] heart without angina pectoris,HTN, goal below [...] Per HTN Protocol #27. Coronary atherosclerosis of [place] tribe coronary donell ry 08/12/2010 Overview (08/12/2010): [...] CG/0.3 mL, 12 YRS AND ABOVE, IM [facility] 04/01/2023 COVID-19, mRNA, LNP-s, PF, B ooster, [...] No 2024 Does the household have a [facility] source of income? (Household - for [...] 11/15/2024 8:00 AM EDT Hospital Encounter OR [facility], Operating Room, [facility] - 4th Floor [address] [place] [address] [facility], In And Out Surgery [address] [place] [address] 11/15/2024 8:00 AM EDT Appointment Radiology, [facility] [address] [place] [address] 11/15/2024 8:00 AM EDT - 11/15/2024 9:00 AM EDT Surgery OR [facility], Operating Room, [facility] - 4th Floor [address] [place] [place] [address] [facility], In And Out Surgery [address] [place] [address] PRE / POST CARE 11/21/2024 11:45 AM EDT Imaging Radiology [facility] 1st [facility] [address] [place] [address] 11/30/2024 10:20 AM EDT Office Visit Family [facility] [address] [place] [address] Linnea Booker MD [address] [place] [address] 04/05/2025 8:20 AM EDT Office Visit [facility] [address] [place] [address] Linnea Booker MD [address] [place] [address] Scheduled Procedures Name Priority Associated Diagnoses Date/Ti [...] Result documented in this encounter Care Teams Paper Ruler Relationship Specialty Start Date End Date Linnea Booker MD [address] [place] [address] PCP - General Internal Medicine 04/28/21 documented as of this encounter
--- OUTSIDE RECORDS SUMMARY | 2024-11-14 06:02 | External Medical Summary | Summary of Care ---
Author Name Unknown Organization [facility] Address [address] [place] [address] Phone [phone] Care Team Providers Care Executive Vice President Of Sales Name Role Phone Linnea Booker MD Primary Care Provider Reason for Visit * Reason Onset Date Comments Scheduling 11/13/2024 Encounter Details Date Type Department Care Team (Late st Contact Info) Description 11/13/2024 Telephone Family Practice [facility] [address] [place] [address] Linnea Booker MD [address] [place] [address] Scheduling Allergies Active Allergy Reactions Criticality Noted Date [...] days 1 Each 1 4 Active Pen [place] 32G X 4 MMIndications:Type 2 diabetes mellitus [...] Sublingual Tablet Sublingual (Nitrostat)Indicat ions:Atheroscleros is of [place] coronary artery of [place] heart without angina pectoris PLACE 1 TABLET [...] 100 MG Oral Tablet (Cozaar)Indication s:Atherosclerosis of [place] coronary artery of [place] heart without angina pectoris,HTN, goal below 140/90 [...] Per HTN Protocol #27. Coronary atherosclerosis of [place] coronary donell ry 08/12/2010 Overview (08/12/2010): Right [...] encounter Miscellaneous Notes * Telephone Encounter - Leanna Chacon RN - 11/13/2024 12:22 PM EDT Spoke to patient to review labs needed and medication. Patient aware to hold lovenox, insulin glargine, and jardiance the morning of procedure. Patient also aware that he will need pt/inr before the procedure. Patient state he will go for it tomorrow and voiced understanding to the medication instructions given. Order for pt/inr already placed by * Telephone Encounter - Mirian Tadeo OSA - 11/13/2024 12:12 PM EDT Spoke to patient to schedule the US Liver Biopsy for 11/15 at [facility] Patient identified by: name Person taught: Patient METHOD: Lecture-telephone interview PATIENT INSTRUCTIONS GIVEN: - General Preoperative Instructions Reviewed - NPO Instructions Reviewed, pt to stop eating 8 hours prior to procedure and stop drinking 2 hoursprior to procedure. -Care Information Associate required Location and check-in instructions Verbalizes understanding of education: Yes Procedure date at time of Imaging Encounter: 11/15 What procedure is patient having? US Liver Biopsy Laterality confirmed as Not Applicable Does the patient have a yellow bar? did not The Patient was given the opportunity to ask questions concerning the procedure. Signature: SRINIVASA Woodard 11/13/2024 documented in this encounter Plan of Treatment Upcoming Encounters Date Type Department Care Team (Latest Contact Info) Description 11/13/2024 5:10 PM EDT Anticoagulation Pharmacy, [facility] [address] [address] [facility] [address] [place] [address] Pancreatic mass*; Liver masses; Superficial vein thrombosis; Elevated CA 19-9 level 11/15/2024 8:00 AM EDT Hospital Encounter OR [facility], Operating Room, [facility] - 4th Floor [address] [place] [address] [facility], In And Out Surgery [address] [place] [address] 11/15/2024 8:00 AM EDT Appointment Radiology, [facility] [address] [place] [address] 11/15/2024 8:00 AM EDT - 11/15/2024 9:00 AM EDT Surgery OR [facility], Operating Room, [facility] 4th Floor [address] [place] [address] [facility], In And Out Surgery [address] [place] [address] PRE / POST CARE 11/21/2024 11:45 AM EDT Imaging Radiology [facility] 1st [facility] [address] [address] 11/30/2024 10:20 AM EDT Office Visit Family [facility] [address] [address] Linnea Booker MD [address] [place] [address] 04/05/2025 8:20 AM EDT Office Visit [facility] [address] [address] Linnea Booker MD [address] [address] Scheduled Procedures Name Priority Associated Diagnoses Date/Ti [...] Depression Screening 2025 2024 GFR 11/12/2025 11/12/2024, /3 , 11/06/2024, Additional history exists Colonoscopy 03/16/2026 [...] filedocumented as of this encounter Care Teams Executive Vice President Of Sales Relationship Specialty Start Date End Date Linnea Booker MD [address] [place] [address] PCP - General Internal Medicine 04/28/21 documented as of this encounter
--- OUTSIDE RECORDS SUMMARY | 2024-11-14 06:02 | External Medical Summary | Summary of Care ---
Author Name Unknown Organization [facility] Address [address] [place] [address] Phone [phone] Care Team Providers Care Stacker Attendant Name Role Phone Linnea Booker MD Primary Care Provider Reason for Visit * Reason Onset Date Comments Scheduling 11/13/2024 Encounter Details Date Type Department Care Team (Late st Contact Info) Description 11/13/2024 Telephone Family Practice [facility] [address] [place] [address] Linnea Booker MD [address] [place] [address] Scheduling Allergies Active Allergy Reactions Criticality Noted [...] days 1 Each 1 4 Active Pen [place] 32G X 4 MMIndications:Type 2 diabetes mellitus [...] Sublingual Tablet Sublingual (Nitrostat)Indicat ions:Atheroscleros is of [place] coronary artery of [place] heart without angina pectoris PLACE 1 TABLET [...] 100 MG Oral Tablet (Cozaar)Indication s:Atherosclerosis of [place] coronary artery of [place] heart without angina pectoris,HTN, goal below 140/90 [...] Per HTN Protocol #27. Coronary atherosclerosis of [place] coronary donell ry 08/12/2010 Overview (08/12/2010): Right [...] No 2024 Does the household have a [facility] source of income? (Household - for [...] the US Liver Biopsy for 11/15 at [facility] Patient identified by: name Person taught: Patient METHOD: Lecture-telephone interview PATIENT INSTRUCTIONS GIVEN: - General Preoperative Instructions Reviewed - NPO Instructions Reviewed, pt to stop eating 8 hours prior to procedure and stop drinking 2 hoursprior to procedure. -Outside Machinist Supervisor required Location and check-in instructions Verbalizes understanding [...] Description 11/13/2024 5:10 PM EDT Anticoagulation Pharmacy, [facility] [address] [address] [facility] [address] [place] [address] Pancreatic mass*; Liver masses; Superficial vein thrombosis; Elevated CA 19-9 level 11/15/2024 8:00 AM EDT Hospital Encounter OR [facility], Operating Room, [facility] - 4th Floor [address] [address] [facility], In And Out Surgery [address] [address] 11/15/2024 8:00 AM EDT Appointment Radiology, [facility] [address] [place] [address] 11/15/2024 8:00 AM EDT - 11/15/2024 9:00 AM EDT Surgery OR [facility], Operating Room, [facility] 4th Floor [address] [address] [facility], In And Out Surgery [address] [place] [address] PRE / POST CARE 11/21/2024 11:45 AM EDT Imaging Radiology [facility] 1st [facility] [address] [address] 11/30/2024 10:20 AM EDT Office Visit Family [facility] [address] [address] Linnea Booker MD [address] [address] 04/05/2025 8:20 AM EDT Office Visit [facility] [address] [address] Linnea Booker MD [address] [address] Scheduled Procedures Name Priority Associated Diagnoses Date/Ti [...] filedocumented as of this encounter Care Teams Stacker Attendant Relationship Specialty Start Date End Date Linnea Booker MD [address] [address] PCP - General Internal Medicine 04/28/21 documented as of this encounter
--- OUTSIDE RECORDS SUMMARY | 2024-11-14 06:03 | External Medical Summary ---
Author Name Unknown Address Unknown Organization [id number]:[place] [place] [address] [place] [address] Laboratory Report Ordering Provider Test Date Status FREDERICK COHN 11/12/2024 14:31:45 Final Observation Date Value Abnormality Reference (Units ) Status Ferritin 11/12/2024 14:31:45 123 30-400 (ng /mL) Final Performing Location LABORATORY [facility] - [address] [place] [address]
--- OUTSIDE RECORDS SUMMARY | 2024-11-14 06:03 | External Medical Summary ---
Author Name Unknown Address Unknown Organization [id number]:LABORATORY [facility] [place] - [address] [place] [address] Laboratory Report Ordering Provider Test Date Status FREDERICK COHN 11/12/2024 14:31:45 Final Observation Date Value Abnormality Reference (Units ) Status Iron 11/12/2024 14:31:45 17 Below low normal 45-176 (ug/dL) Final Iron-binding capacity 11/12/2024 14:31:45 310 250-425 (ug/dL) Final Transferrin Sat % 11/12/2024 14:31:45 5 Below low normal 15-55 (%) Final Performing Location [facility]ATORY [facility] - [address] [place] [address]
--- OUTSIDE RECORDS SUMMARY | 2024-11-14 06:03 | External Medical Summary ---
Author Name Unknown Address Unknown Organization [id number]:LABORATORY [facility] [place] - [facility] [address] [place] [address] Laboratory Report Ordering Provider Test Date Status FREDERICK COHN 11/12/2024 14:31:45 Final Observation Date Value Abnormality Reference (Units ) Status Retic, % (auto) 11/12/2024 14:31:45 6.04 Above high normal 0.80-1.90 (%) Final Reticulocytes, Absolute 11/12/2024 14:31:45 189.1 Above high normal 31.3-100.1 (K/uL) Final Reticulocyte fraction, immature 11/12/2024 14:31:45 47.1 Above high normal 2.5-20.6 (%) Final Reticulocyte HGB 11/12/2024 14:31:45 27.1 Below low normal 29.7-37.4 (pg) Final Performing Location LABORATORY [facility] [place] - [facility] [address] [place] [address]
--- OUTSIDE RECORDS SUMMARY | 2024-11-14 06:03 | External Medical Summary ---
Author Name Unknown Address Unknown Organization [id number]:LABORATORY [facility] [place] - [address] [place] [address] Laboratory Report Ordering Provider Test Date Status FREDERICK COHN 11/12/2024 14:31:45 Final Observation Date Value Abnormality Reference (Units ) Status Haptoglobin 11/12/2024 14:31:45 405 Above high normal 30-200 (mg/dL) Final Performing Location [facility] [address] [facility] [address]
[2024-11-14 06:15] LABS: Albumin Globulin Ratio 1.4 (0.9-2); Albumin Level 2.9 gm/dl (3.4-5.0); Bilirubin,Total 0.7 mg/dl (0.2-1.0); Creatinine Clr Calc Pharmacy 114.9 ml/min; Globulin 2.1 gm/dl (2.5-4.0); Potassium 3.8 mmol/L (3.5-5.1)
[2024-11-14 06:35] LABS: Polychromasia 2+
[2024-11-14 06:41] LABS: ANTI-Xa, UFH(UnfractionatedHep 0.28 IU/ml (0.3-0.7)
[2024-11-14] MEDS: INSULIN ASPART PER UNIT CHARGE SC STA (07:37)
[2024-11-14] MEDS: Nursing to Pharmacy Communication SCH (07:39)
[2024-11-14 08:25] LABS: ANTI-Xa, UFH(UnfractionatedHep 0.27 IU/ml (0.3-0.7)
[2024-11-14] MEDS ORDERED: LANTUS PER UNIT CHARGE SC SCH (09:00)
[2024-11-14] MEDS: LOSARTAN POTASSIUM 50 MG TAB PO SCH (09:27)
[2024-11-14] MEDS: ISOSORBIDE MONO EXTENDED REL 30 MG TABCR PO SCH (09:27)
[2024-11-14] MEDS: FERROUS SULFATE 325 MG TAB PO SCH (09:28)
[2024-11-14] MEDS: METOPROLOL SUCC 25MG EXT REL TAB PO SCH (09:28)
[2024-11-14] MEDS ORDERED: Nursing to Pharmacy Communication SCH (09:30)
[2024-11-14 11:15] VITALS: RESP 18
[2024-11-14] MEDS ORDERED: INSULIN ASPART PER UNIT CHARGE SC SCH (12:00)
[2024-11-14] MEDS: INSULIN ASPART PER UNIT CHARGE SC SCH (12:32)
[2024-11-14] MEDS: LANTUS PER UNIT CHARGE SC SCH (12:32)
--- NOTE | 2024-11-14 13:41 | Pharmacy Report ---
Pharmacy Glycemic Short Note 2 - Date of Service November 14, 2024 - Glycemic Short BSG Results (Last 24 hours): 11/13/24 11/13/24 11/13/24 15:00 19:05 21:54 Glucose 243 H POC Glucose 137 H 170 H 11/14/24 11/14/24 11/14/24 00:38 05:12 07:37 Glucose 88 POC Glucose 146 H 100 H 11/14/24 11:59 Glucose POC Glucose 300 H OUTPATIENT ANTIDIABETIC REGIMEN: * Lantus 18 units SQ QAM * Jardiance 25 HS * repaglinide 4mg PO AC * HbA1c 8.1% (10/02) ASSESSMENT: * Florentino is a 74 year old male admitted anemia and weakness with a history of recently diagnosed pancreatic/liver masses and type 2 diabetes mellitus. Pharmacy has been consulted to assist with glycemic management while inpatient. * Fasting BSG this AM acceptable, patient was NPO and Lantus was originally held. Diet ordered right after breakfast, slightly reduced home dose of 15 units given with lunch * Lunchtime BSG elevated, likely due to breakfast not being covered, unable to assess NovoLog parameters at this time, continue to trend. PLAN FOR INPATIENT GLYCEMIC CONTROL: * Hold outpatient oral diabetes medications * Basal insulin * Lantus 15 units SQ daily * Bolus insulin * NovoLog per scale ACHS or Q6hrs while NPO * Goal Range: Low 110 mg/dL - High 140 mg/dL * Correction Factor: 30 mg/dL/unit * Nutritional / Prandial insulin per carb ratio of 1 unit per 8 grams CHO consumed
[2024-11-14 13:45] LABS: ANTI-Xa, UFH(UnfractionatedHep 0.26 IU/ml (0.3-0.7)
--- NOTE | 2024-11-14 13:57 | Hospitalist Progress Note ---
Date of Service November 14, 2024 Assessment & Plan (1) Anemia: (2) Weakness: (3) Pancreatic mass: (4) Liver mass: (5) Deep vein thrombosis (DVT) of right upper extremity: (6) Type 2 diabetes mellitus: (7) Hypertension: (8) Dyslipidemia: (9) Coronary artery disease: Plan 74 year old male with PMH significant for DMII, dyslipidemia, HTN, CAD s/p stent, recently discovered pancreatic and liver masses, and anemia who presented to the ED today by referral of his PCP. Anemia- likely secondary to GI bleed Recently he was in the [facility] with history of exertional tiredness and dizziness and noted to have hemoglobin of 6.1 and received 2 units of blood transfusion Denies any history of blood vomiting or any black stool prior to admission Hgb 7.5 and patient symptomatic with weakness Iron studies revealed iron 24, TIBC 333, transferrin 238, transferrin sat 7% Vitamin B12 and folate levels are normal Received 2 units of blood and 2 [facility] and also 1 unit in the emergency room Received Venofer 300mg IV x1 Noted to have black stool this morning and that was positive for blood Hemoglobin remains stable at 7.8 as of this morning Noted to have engorged gastric vein on CAT scan of the abdomen pelvis as well Will ask for GI evaluation for possible EGD Repeat CT of the abdomen pelvis did not show any internal bleeding but showed pancreatic and hepatic lesions as before Transfer to [facility] Appreciate GI input and recommendationwill need EGD, EUS for further evaluation of pancreatic mass [facility] and will need GI consult for proposed EUS tomorrow Discussed with that transfer service-Dr. 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 splenic venous thrombus concerning for metastatic disease involving the liver Patient was scheduled for admission at [facility] on 11/[address] Hitchcock discussed with Niraj Kennedy of Radiology regarding coordination of liver biopsy while inpatient Recommend contacting Alfred Campo tomorrow am and discuss scheduling and also timing of IV heparin discontinuation Discussed with the IR provider and IR cannot be done today as he will need off of aspirin for at least 5 days He took his last aspirin on Tuesday night IR can be done as an outpatient on of this month Discussed with oncologist/air compressor operator Dr. Bo and updated about patient's condition Repeat CT of the abdomen pelvis did not show any internal bleeding but it showed unchanged pancreatic and hepatic lesions DVT RUE Outpatient duplex revealed DVT of right basilic vein Prescribed lovenox outpatient but patient never picked it up Started on IV heparin in ED and continuing DMII A1C 8.1 in September 2024 On Jardiance, repaglinide, insulin glargine at home - holding while inpt SSI insulin while inpt CAD s/p stent Hypertension Dyslipidemia Continue imdur, losartan, metoprolol, atorvastatin Holding baby aspirin pending possible liver biopsy tomorrow Patient holding amlodipine due to low BPs at home Continue to hold amlodipine Monitor BPs and consider restarting amlodipine if elevated Has been remains on hold DVT Prophylaxis: IV Heparin *hold in am in preparation for liver biopsy Code Status: FULL CODE - As per discussion at bedside with the patient. PCP: Dr Linnea Booker Disposition: admit to [facility] Discussed with the patient and the and the patient will be transferred tonight to [facility] Admission and Anticipated Discharge Date Admission Date: November 13, 2024 Subjective 11/14/2024 The patient was seen and examined in medical telemetry unit He has been complaining of tiredness for some time Denies any abdominal pain, nausea or vomiting Denies any history of blood vomiting or bleeding per rectum He did not notice any black stool until this morning Review of Systems Review of Systems: All systems reviewed and are unremarkable except as noted below Physical Exam Physical Exam: Lying in bed without any acute distress Constitutional: well developed, well nourished, + ill appearing and average body habitus Eyes: PERRL, conjunctivae normal, anicteric sclerae ENMT: external ear and nose normal, oropharynx normal Neck: trachea midline, no thyromegaly Respiratory: no respiratory distress Auscultation: lungs clear to auscultation bilaterally Cardiovascular: Rate/Rhythm: regular rate and regular rhythm; not tachycardic Heart Sounds: normal S1 and normal S2; no murmur Extremities: no edema Gastrointestinal (Abdomen): Inspection/Auscultation: normal bowel sounds; abdomen not distended Percussion/Palpation: abdomen soft; abdomen nontender Musculoskeletal: No acute arthritis involving any of the joint Neurologic: normal touch/pain/proprioception and moves all extremities; no focal motor deficits Psychiatric: A+Ox3, euthymic affect Lymphatic: no cervical or axillary lymphadenopathy Results & Data Results & Data Vital Signs (Past 12 Hours) Vital Signs Temp Pulse Pulse Resp BP Pulse Ox O2 Del Method 11/14/24 11:14 37.0 C 81 18 124/68 97 Room Air 11/14/24 08:17 Room Air 11/14/24 07:41 62 11/14/24 02:00 36.6 C 61 16 128/53 L 97 Room Air Laboratory Results Short CBC 11/13/24 11/13/24 11/14/24 Range/Units 15:00 22:30 05:12 WBC 20.65 H 12.90 H (4.8-10.8) K/ul Hgb 7.5 L 7.2 L 7.8 L (14.0-18.0) g/dl Hct 24.8 L 22.7 L 24.5 L (42.0-52.0) % Plt Count 234 152 (130-400) K/uL BMP 11/13/24 11/14/24 15:00 05:12 Sodium 133 L 137 Potassium 4.2 3.8 Chloride 102 106 Carbon Dioxide 21 24 BUN 26 H 18 Creatinine 0.78 0.60 Glucose 243 H 88 Calcium 8.5 L 8.0 L Liver Function 11/13/24 11/14/24 Range/Units 15:00 05:12 Total Bilirubin 0.7 0.7 (0.2-1.0) mg/dl AST 65 H 52 H (13-39) U/L ALT 60 H 50 (7-52) U/L Alkaline Phosphatase 470 H 420 H (34-104) U/L Albumin 3.4 2.9 L (3.4-5.0) gm/dl Diagnostic Findings Laboratory Results WBC 12.90 K/ul (4.8-10.8) H 11/14/24 05:12 RBC 3.07 M/uL (4.70-6.10) L 11/14/24 05:12 Hgb 7.8 g/dl (14.0-18.0) L 11/14/24 05:12 Hct 24.5 % (42.0-52.0) L 11/14/24 05:12 MCV 79.8 fL (80.0-100.0) L 11/14/24 05:12 MCH 25.4 pg (25.0-34.0) 11/14/24 05:12 MCHC 31.8 g/dL (32.0-36.0) L 11/14/24 05:12 RDW Std Deviation 46.8 fL (36.4-46.3) H 11/14/24 05:12 RDW Coeff of Sascha 16.9 % (11.5-14.5) H 11/14/24 05:12 Plt Count 152 K/uL (130-400) 11/14/24 05:12 MPV 11.4 fL (9.4-12.4) 11/14/24 05:12 Immature Gran % (Auto) 1.1 % 11/14/24 05:12 Neut % (Auto) 84.0 % 11/14/24 05:12 Lymph % (Auto) 6.9 % 11/14/24 05:12 [place] % (Auto) 6.6 % 11/14/24 05:12 Eos % (Auto) 1.2 % 11/14/24 05:12 Baso % (Auto) 0.2 % 11/14/24 05:12 Neut # (Auto) 10.84 K/uL (1.40-6.50) H 11/14/24 05:12 Lymph # (Auto) 0.89 K/uL (1.20-3.40) L 11/14/24 05:12 Edgar # (Auto) 0.85 K/uL (0.11-0.59) H 11/14/24 05:12 Eos # (Auto) 0.16 K/uL (0.00-0.50) 11/14/24 05:12 Baso # (Auto) 0.02 K/uL (0.00-0.20) 11/14/24 05:12 Immature Gran # (Auto) 0.14 K/uL (0.01-0.20) 11/14/24 05:12 Absolute Nucleated RBC 0.02 K/uL (0.00-0.12) 11/14/24 05:12 Nucleated RBC % (auto) 0.2 % 11/14/24 05:12 Polychromasia 2+ 11/14/24 05:12 Anisocytosis Present 11/13/24 15:00 PT 11.3 Seconds (9.0-12.0) 11/13/24 15:00 INR 1.0 (0.9-1.1) 11/13/24 15:00 APTT 24 Seconds (21-31) 11/13/24 15:00 PTT Ratio 0.9 11/13/24 15:00 Heparin Anti-Xa, Unfract 0.26 IU/ml (0.3-0.7) L 11/14/24 13:06 Sodium 137 mmol/L (136-145) 11/14/24 05:12 Potassium 3.8 mmol/L (3.5-5.1) 11/14/24 05:12 Chloride 106 mmol/L (98-107) 11/14/24 05:12 Carbon Dioxide 24 mmol/L (21-32) 11/14/24 05:12 Anion Gap 7 (3-11) 11/14/24 05:12 BUN 18 mg/dl (6-23) 11/14/24 05:12 Creatinine 0.60 mg/dl (0.6-1.4) 11/14/24 05:12 Est Cr Clr Drug Dosing 114.9 ml/min 11/14/24 05:12 eGFR 102.56 11/14/24 05:12 BUN/Creatinine Ratio 30.0 (10-20) H 11/14/24 05:12 Glucose 88 mg/dl (70-99(Fasting)) 11/14/24 05:12 POC Glucose 210 mg/dl (70-99) H 11/14/24 17:05 Calcium 8.0 mg/dl (8.6-10.3) L 11/14/24 05:12 Iron 24 mcg/dl (35-175) L 11/13/24 15:00 TIBC 333 mcg/dl (250-450) 11/13/24 15:00 Transferrin 238 mg/dl (200-360) 11/13/24 15:00 Transferrin % Sat 7 % (20-50) L 11/13/24 15:00 Ferritin 77.5 ng/ml (8-388) 11/13/24 15:00 Total Bilirubin 0.7 mg/dl (0.2-1.0) 11/14/24 05:12 AST 52 U/L (13-39) H 11/14/24 05:12 ALT 50 U/L (7-52) 11/14/24 05:12 Alkaline Phosphatase 420 U/L (34-104) H 11/14/24 05:12 Troponin I High Sens 11.3 pg/ml (0-20) 11/13/24 15:00 Total Protein 5.0 gm/dl (6.0-8.3) L 11/14/24 05:12 Albumin 2.9 gm/dl (3.4-5.0) L 11/14/24 05:12 Globulin 2.1 gm/dl (2.5-4.0) L 11/14/24 05:12 Albumin/Globulin Ratio 1.4 (0.9-2) 11/14/24 05:12 Lipase 31 U/L (11-82) 11/13/24 15:00 Vitamin B12 433 pg/ml (180-914) 11/13/24 22:30 Folate 8.41 ng/ml (>5.38) 11/13/24 22:30 TSH 1.793 uIu/ml (0.300-4.500) 11/13/24 15:00 Stool Occult Bld Scrn Positive (Negative) A 11/14/24 Unknown Blood Type O Positive 11/13/24 16:24 Blood Type Recheck O Positive 11/13/24 16:49 Antibody Screen NEGATIVE 11/13/24 16:24 Crossmatch See Detail 11/13/24 16:24 Impressions Chest X-Ray 11/13/24 14:53 INDICATION: Chest pain. TECHNIQUE: Frontal radiograph of the chest. COMPARISON: None. FINDINGS: The cardiomediastinal silhouette and pulmonary vasculature appear within normal limits. No infiltrate, pleural effusion or pneumothorax. No acute osseous abnormality evident. IMPRESSION: No acute cardiopulmonary process. Electronically signed by Raz Rand 11-13-2024 5:20 PM Abdomen/Pelvis CT 11/14/24 14:48 INDICATION: Abdominal pain. COMPARISON: CT from 11/06/2024. TECHNIQUE: Axial CT images of the abdomen and pelvis were obtained without IV contrast administration. Coronal and sagittal reformations were reviewed. FINDINGS: Visualized lung bases appear unremarkable. No significant change in pancreatic or hepatic masses. Splenomegaly. No hydronephrosis or renal calculus. Mild amount retained colonic stool. No evidence of bowel obstruction/colitis/appendicitis. No free air. No drainable fluid collection. Fat-containing bilateral inguinal hernias. Small amount of fluid in the pelvis. Mild prostate gland enlargement. No acute osseous abnormality evident. IMPRESSION: Small amount of fluid in the pelvis. No significant change in pancreatic or hepatic masses. Splenomegaly. Bilateral fat-containing inguinal hernias. Electronically signed by Raz Rand 11-14-2024 4:24 PM Medications Administered Current Inpatient Medications Acetaminophen (Acetaminophen 325 Mg Tab) 650 mg PO Q4H PRN PRN Reason: pain/fever Stop: 12/13/24 21:35 Atorvastatin Calcium (Atorvastatin 40 Mg Tab) 80 mg PO HS [facility] Stop: 12/13/24 21:35 Last Admin: 11/13/24 21:56 Dose: 80 mg Dextrose (Dextrose 50% 50 Ml Syringe) 25 - 50 ml IV UD PRN; Protocol PRN Reason: Hypoglycemia Protocol Stop: 12/13/24 18:28 Ferrous Sulfate (Ferrous Sulfate 325 Mg Tab) 325 mg PO QAM [facility] Stop: 12/14/24 08:59 Last Admin: 11/14/24 09:28 Dose: 325 mg Glucagon (Glucagon For Inj 1 Mg Vial) 1 mg SQ UD PRN; Protocol PRN Reason: Hypoglycemia Protocol Stop: 12/13/24 18:28 Glucose (Glucose 40% Gel 15 Gm Tube) 15 - 30 gm PO UD PRN; Protocol PRN Reason: Hypoglycemia Protocol Stop: 12/13/24 18:28 Glucose (Glucose 10 Tab/Tube) 4 - 8 tab PO UD PRN; Protocol PRN Reason: Hypoglycemia Protocol Stop: 12/13/24 18:28 Heparin Sodium/Dextrose (Heparin 09271 Unit/500 Ml D5w) 25,000 units in 500 mls @ 20 mls/hr IV .Q24H KRISTOFER; Protocol Stop: 12/13/24 18:14 Last Titration: 11/14/24 13:55 Dose: 1,050 units/hr, 21 mls/hr Pantoprazole Sodium 40 mg/ (Dextrose) 100 mls @ 20 mls/hr IV Q5H KRISTOFER Stop: 12/14/24 14:14 Pantoprazole Sodium 80 mg/ (Dextrose) 120 mls @ 480 mls/hr IV NOW ONE Stop: 11/14/24 14:05 Insulin Aspart (Insulin Aspart Per Unit Charge) 0 units SC ACHS [facility] Stop: 12/14/24 11:29 Last Admin: 11/14/24 12:32 Dose: 9 units Insulin Glargine (Lantus Per Unit Charge) 15 units SC QAM [facility] Stop: 12/14/24 12:14 Last Admin: 11/14/24 12:32 Dose: 15 units Isosorbide Mononitrate (Isosorbide [place] Extended Rel 30 Mg Tabcr) 30 mg PO [facility] Stop: 12/14/24 08:59 Last Admin: 11/14/24 09:27 Dose: 30 mg Losartan Potassium (Losartan Potassium 50 Mg Tab) 100 mg PO [facility] Stop: 12/14/24 08:59 Last Admin: 11/14/24 09:27 Dose: 100 mg Metoprolol Succinate (Metoprolol Succ 25mg Ext Rel Tab) 12.5 mg PO [facility] Stop: 12/14/24 08:59 Last Admin: 11/14/24 09:28 Dose: 12.5 mg Miscellaneous (Carbohydrates For Hypoglycemia ) 15 - 30 gm PO UD PRN PRN Reason: Hypoglycemia Protocol Stop: 12/13/24 18:28 Miscellaneous Information (Pharmacy Glycemic Mgmt Consult) 1 each N/A UD PRN PRN Reason: Consult Stop: 12/13/24 18:28 Polyethylene Glycol (Polyethylene (Miralax) 17 Gm Pack) 17 gm PO DAILY PRN PRN Reason: Constipation Stop: 12/13/24 21:35 (1) Anemia Anemia type: other cause
[2024-11-14] MEDS: PANTOPRAZOLE BOLUS/DRIP IV STA (14:01)
[2024-11-14] MEDS: PANTOprazole 80 MG in DEXTROSE 5% 100 ML IV ONE (14:09)
--- NOTE | 2024-11-14 14:15 | Gastrointestinal Consultation ---
Date of Consultation November 14, 2024 Assessment & Plan (1) Anemia: 74 year old male with history of significant for T2DM, dyslipidemia, HTN, CAD s/p stent, recently, recently hospitalized and discharged on 11/09 from [facility] for anemia, CT during admission concerning for possible pancreatic CA w/ liver lesions and a splenic vein thrombus admitted to [facility] 11/13 for weakness, symptomatic anemia. S/P 1 unit RBC 5/6 w/ HGB 7.8 - GI asked to evaluate for a heme positive black stools. CTAP from [facility] reviewed - ill defined 4.5-5 cm pancreatic tail lesion w/ multiple hypoenhancing hepatic lesions, suspected splenic vein thrombosis, suspected varices along the periphery of the stomach. 1. Pancreas mass w/ liver lesion - He tells me there is plan for a biopsy of this with [facility] 2. Anemia, heme positive, black stool - Suspect multifactorial as he is also on oral iron - Trend H&H - Monitor and document GI output - Transfuse PRN per primary service - Hold - Will discuss role of endoscopic evaluation w/ attending - IV PPI I spent a total of 60 minutes on the date of service in review of patient's record, and previously obtained information in person and appropriate medical visit, discussion and education of plan, with patient and/or caregiver, placing orders for tests/referral/procedures as medically necessary and documentation of pertinent clinical information in patient's medical records for their visit today.Thank you for allowing us to participate in the care of this patient. Please call with any acute changes, questions or concerns. Please see addendum below with additional recommendation from my supervising physician. Supervising Physician Co-Signing Physician Notes I personally saw and examined the patient. I have reviewed the chart and agree with the documentation provided by the TECHNICAL TRAINER including discussion about the assessment, treatment and plan. Briefly, 74 year old male with history of significant for T2DM, dyslipidemia, HTN, CAD s/p stent, recently, recently hospitalized and discharged on 11/09 from [facility] for anemia, CT during admission concerning for possible pancreatic CA w/ liver lesions and a splenic vein thrombus admitted to [facility] 11/13 for weakness, symptomatic anemia. S/P 1 unit RBC 5/6 w/ HGB 7.8 - GI asked to evaluate for a heme positive black stools. CTAP from [facility] reviewed - ill defined 4.5-5 cm pancreatic tail lesion w/ multiple hypoenhancing hepatic lesions, suspected splenic vein thrombosis, suspected varices along the periphery of the stomach. His findings are suggestive of metastatic pancreatic cancer complicated by splenic vein thrombosis and a recent DVT. He is on a heparin drip and he has had some dark stools. He does deserve an EGD EUS FNA of the lesion. We will speak with Esdras to see when this can be done. He needs to have this procedure done inpatient as he is now on anticoagulation. PPI twice daily. The dark stool could be gastritis ulcer GAVE and much less likely gastric varices as no hematemesis or persistent melena ---given splenic vein thrombosis History of Present Illness Reason for Consultation: Acute GI bleed,Splenic thrombosis,Hepatic mass Requesting Physician: Elen Olvera MD Attending Physician: Elen Olvera MD History of Present Illness 74 year old male with history of significant for T2DM, dyslipidemia, HTN, CAD s/p stent, recently, recently hospitalized and discharged on 11/09 from [facility] for anemia. Reports he had 2 units RBCs but no endoscopic evaluation. He was started on oral iron supplementation. He tells me there was imaging completed w/ report of a possible pancreatic CA w/ liver lesions and a splenic vein thrombus who presented to [facility] 11/13 for weakness, symptomatic anemia. S/P 1 unit RBC 11/13 w/ HGB 7.8. He reports he moved his stool today and noted a formed, black movement that was heme positive. No report of BRBPR. No report of coffee ground emesis or hematemesis. Denies nausea/vomiting, GERD or dysphagia. HGB 7.8 BUN 18 Heme + stool Tb 0.7 AST 52 ALT 50 ALKP 420 On IV heparin ASA held on Tuesday CTAP 2024: ill defined 4.5-5 cm pancreatic tail lesion w/ multiple hypoenhancing hepatic lesions, suspected splenic vein thrombosis, suspected varices along the periphery of the stomach EGD: none Colonoscopy 2022:The examined portion of the ileum was normal. - Two 4 to 10 mm polyps in the ascending colon, removed with a cold snare. Resected and retrieved. - Diverticulosis in the sigmoid colon. - Internal hemorrhoids. - The examination was otherwise normal on direct and retroflexion views. Allergies Allergy/AdvReac Type Severity Reaction Status Date / Time metformin AdvReac Severe SEVERE Verified 11/13/24 17:04 DIARRHEA Home Medications Medication Instructions Recorded Confirmed Type amlodipine 5 mg tablet 5 mg PO HS 11/13/24 11/13/24 History aspirin 81 mg tablet,delayed 81 mg PO HS 11/13/24 11/13/24 History release (Ecotrin Low Strength) atorvastatin 80 mg tablet 80 mg PO HS 11/13/24 11/13/24 History cephalexin 500 mg capsule 500 mg PO TID 11/13/24 11/13/24 History empagliflozin 25 mg tablet 25 mg PO 11/13/24 11/13/24 History (Jardiance) ferrous sulfate 325 mg (65 mg 325 mg PO [facility] 11/13/24 11/13/24 History iron) tablet insulin glargine-yfgn 100 unit/mL 18 unit subcut [facility] 11/13/24 11/13/24 History (3 mL) subcutaneous pen isosorbide mononitrate 30 mg 30 mg PO [facility] 11/13/24 11/13/24 History tablet,extended release 24 hr losartan 100 mg tablet 100 mg PO [facility] 11/13/24 11/13/24 History metoprolol succinate 25 mg 12.5 mg PO [facility] 11/13/24 11/13/24 History tablet,extended release 24 hr nitroglycerin 0.4 mg sublingual 0.4 mg sublingual DIRECTED PRN 11/13/24 11/13/24 History tablet (Nitrostat) Chest Pain repaglinide 2 mg tablet 4 mg PO AC 11/13/24 11/13/24 History Patient History Medical History (Updated 11/13/24 @ 17:59 by Logan Hitchcock M.D.) Myocardial infarction 12/16/2017 Surgical History (Updated 11/13/24 @ 17:28 by ADIEL Serrano) H/O colonoscopy 2014, 2019, 2022 History of coronary angioplasty with insertion of stent 08/12/2010 Family History (Updated 11/13/24 @ 17:28 by ADIEL Serrano) Father Cancer Mother Cancer Social History (Updated 11/13/24 @ 17:57 by ADIEL Serrano) Smoking Status: Never smoker Hx Alcohol Use: Yes Alcohol type: beer Hx Substance Use: No Preferred Language: [place]i Communication Ability: Effective Security Vehicle Patrol Officer Required: No Beliefs That Will Affect Care: None Current Living Situation: Spouse Current Living Situation Comment: lives with his Feels Safe at Home: Yes Assistive Devices: None Review of Systems Review of Systems: All other findings negative except as noted in HPI. Physical Exam Constitutional: WD/WN, vitals as above Respiratory: normal respiratory effort Cardiovascular: Rate/Rhythm: regular rate Gastrointestinal (Abdomen): normal bowel sounds, soft, nontender, no hepatosplenomegaly Skin: no rashes, warm and dry Results & Data Vital Signs (Past 12 Hours) Vital Signs Temp Pulse Pulse Resp BP Pulse Ox O2 Del Method 11/14/24 11:14 98.6 F 81 18 124/68 97 Room Air 11/14/24 08:17 Room Air 11/14/24 07:41 62 Laboratory Results 11/14/24 11/14/24 11/14/24 Range/Units Unknown 13:06 11:59 WBC (4.8-10.8) K/ul RBC (4.70-6.10) M/uL Hgb (14.0-18.0) g/dl Hct (42.0-52.0) % MCV (80.0-100.0) fL MCH (25.0-34.0) pg MCHC (32.0-36.0) g/dL RDW Std Deviation (36.4-46.3) fL RDW Coeff of Sascha (11.5-14.5) % Plt Count (130-400) K/uL MPV (9.4-12.4) fL Immature Gran % (Auto) % Neut % (Auto) % Lymph % (Auto) % [place] % (Auto) % Eos % (Auto) % Baso % (Auto) % Neut # (Auto) (1.40-6.50) K/uL Lymph # (Auto) (1.20-3.40) K/uL [place] # (Auto) (0.11-0.59) K/uL Eos # (Auto) (0.00-0.50) K/uL Baso # (Auto) (0.00-0.20) K/uL Immature Gran # (Auto) (0.01-0.20) K/uL Absolute Nucleated RBC (0.00-0.12) K/uL Nucleated RBC % (auto) % Polychromasia Anisocytosis PT (9.0-12.0) Seconds INR (0.9-1.1) APTT (21-31) Seconds PTT Ratio Heparin Anti-Xa, Unfract 0.26 L (0.3-0.7) IU/ml Sodium (136-145) mmol/L Potassium (3.5-5.1) mmol/L Chloride (98-107) mmol/L Carbon Dioxide (21-32) mmol/L Anion Gap (3-11) BUN (6-23) mg/dl Creatinine (0.6-1.4) mg/dl Est Cr Clr Drug Dosing ml/min eGFR BUN/Creatinine Ratio (10-20) Glucose (70-99(Fasting)) mg/dl POC Glucose 300 H (70-99) mg/dl Calcium (8.6-10.3) mg/dl Iron (35-175) mcg/dl TIBC (250-450) mcg/dl Transferrin (200-360) mg/dl Transferrin % Sat (20-50) % Ferritin (8-388) ng/ml Total Bilirubin (0.2-1.0) mg/dl AST (13-39) U/L ALT (7-52) U/L Alkaline Phosphatase (34-104) U/L Troponin I High Sens (0-20) pg/ml Total Protein (6.0-8.3) gm/dl Albumin (3.4-5.0) gm/dl Globulin (2.5-4.0) gm/dl Albumin/Globulin Ratio (0.9-2) Lipase (11-82) U/L Vitamin B12 (180-914) pg/ml Folate (>5.38) ng/ml TSH (0.300-4.500) uIu/ml Stool Occult Bld Scrn Positive A (Negative) Blood Type Blood Type Recheck Antibody Screen Crossmatch 11/14/24 11/14/24 11/14/24 Range/Units 07:37 05:12 00:38 WBC 12.90 H (4.8-10.8) K/ul RBC 3.07 L (4.70-6.10) M/uL Hgb 7.8 L (14.0-18.0) g/dl Hct 24.5 L (42.0-52.0) % MCV 79.8 L (80.0-100.0) fL MCH 25.4 (25.0-34.0) pg MCHC 31.8 L (32.0-36.0) g/dL RDW Std Deviation 46.8 H (36.4-46.3) fL RDW Coeff of Sascha 16.9 H (11.5-14.5) % Plt Count 152 (130-400) K/uL MPV 11.4 (9.4-12.4) fL Immature Gran % (Auto) 1.1 % Neut % (Auto) 84.0 % Lymph % (Auto) 6.9 % [place] % (Auto) 6.6 % Eos % (Auto) 1.2 % Baso % (Auto) 0.2 % Neut # (Auto) 10.84 H (1.40-6.50) K/uL Lymph # (Auto) 0.89 L (1.20-3.40) K/uL [place] # (Auto) 0.85 H (0.11-0.59) K/uL Eos # (Auto) 0.16 (0.00-0.50) K/uL Baso # (Auto) 0.02 (0.00-0.20) K/uL Immature Gran # (Auto) 0.14 (0.01-0.20) K/uL Absolute Nucleated RBC 0.02 (0.00-0.12) K/uL Nucleated RBC % (auto) 0.2 % Polychromasia 2+ Anisocytosis PT (9.0-12.0) Seconds INR (0.9-1.1) APTT (21-31) Seconds PTT Ratio Heparin Anti-Xa, Unfract 0.27 L 0.28 L (0.3-0.7) IU/ml Sodium 137 (136-145) mmol/L Potassium 3.8 (3.5-5.1) mmol/L Chloride 106 (98-107) mmol/L Carbon Dioxide 24 (21-32) mmol/L Anion Gap 7 (3-11) BUN 18 (6-23) mg/dl Creatinine 0.60 (0.6-1.4) mg/dl Est Cr Clr Drug Dosing 114.9 ml/min eGFR 102.56 BUN/Creatinine Ratio 30.0 H (10-20) Glucose 88 (70-99(Fasting)) mg/dl POC Glucose 100 H 146 H (70-99) mg/dl Calcium 8.0 L (8.6-10.3) mg/dl Iron (35-175) mcg/dl TIBC (250-450) mcg/dl Transferrin (200-360) mg/dl Transferrin % Sat (20-50) % Ferritin (8-388) ng/ml Total Bilirubin 0.7 (0.2-1.0) mg/dl AST 52 H (13-39) U/L ALT 50 (7-52) U/L Alkaline Phosphatase 420 H (34-104) U/L Troponin I High Sens (0-20) pg/ml Total Protein 5.0 L (6.0-8.3) gm/dl Albumin 2.9 L (3.4-5.0) gm/dl Globulin 2.1 L (2.5-4.0) gm/dl Albumin/Globulin Ratio 1.4 (0.9-2) Lipase (11-82) U/L Vitamin B12 (180-914) pg/ml Folate (>5.38) ng/ml TSH (0.300-4.500) uIu/ml Stool Occult Bld Scrn (Negative) Blood Type Blood Type Recheck Antibody Screen Crossmatch 11/14/24 11/13/24 11/13/24 Range/Units 00:33 22:30 21:54 WBC (4.8-10.8) K/ul RBC (4.70-6.10) M/uL Hgb 7.2 L (14.0-18.0) g/dl Hct 22.7 L (42.0-52.0) % MCV (80.0-100.0) fL MCH (25.0-34.0) pg MCHC (32.0-36.0) g/dL RDW Std Deviation (36.4-46.3) fL RDW Coeff of Sascha (11.5-14.5) % Plt Count (130-400) K/uL MPV (9.4-12.4) fL Immature Gran % (Auto) % Neut % (Auto) % Lymph % (Auto) % [place] % (Auto) % Eos % (Auto) % Baso % (Auto) % Neut # (Auto) (1.40-6.50) K/uL Lymph # (Auto) (1.20-3.40) K/uL [place] # (Auto) (0.11-0.59) K/uL Eos # (Auto) (0.00-0.50) K/uL Baso # (Auto) (0.00-0.20) K/uL Immature Gran # (Auto) (0.01-0.20) K/uL Absolute Nucleated RBC (0.00-0.12) K/uL Nucleated RBC % (auto) % Polychromasia Anisocytosis PT (9.0-12.0) Seconds INR (0.9-1.1) APTT (21-31) Seconds PTT Ratio Heparin Anti-Xa, Unfract 0.23 L (0.3-0.7) IU/ml Sodium (136-145) mmol/L Potassium (3.5-5.1) mmol/L Chloride (98-107) mmol/L Carbon Dioxide (21-32) mmol/L Anion Gap (3-11) BUN (6-23) mg/dl Creatinine (0.6-1.4) mg/dl Est Cr Clr Drug Dosing ml/min eGFR BUN/Creatinine Ratio (10-20) Glucose (70-99(Fasting)) mg/dl POC Glucose 170 H (70-99) mg/dl Calcium (8.6-10.3) mg/dl Iron (35-175) mcg/dl TIBC (250-450) mcg/dl Transferrin (200-360) mg/dl Transferrin % Sat (20-50) % Ferritin (8-388) ng/ml Total Bilirubin (0.2-1.0) mg/dl AST (13-39) U/L ALT (7-52) U/L Alkaline Phosphatase (34-104) U/L Troponin I High Sens (0-20) pg/ml Total Protein (6.0-8.3) gm/dl Albumin (3.4-5.0) gm/dl Globulin (2.5-4.0) gm/dl Albumin/Globulin Ratio (0.9-2) Lipase (11-82) U/L Vitamin B12 433 (180-914) pg/ml Folate 8.41 (>5.38) ng/ml TSH (0.300-4.500) uIu/ml Stool Occult Bld Scrn (Negative) Blood Type Blood Type Recheck Antibody Screen Crossmatch 11/13/24 11/13/24 11/13/24 Range/Units 19:05 16:49 16:24 WBC (4.8-10.8) K/ul RBC (4.70-6.10) M/uL Hgb (14.0-18.0) g/dl Hct (42.0-52.0) % MCV (80.0-100.0) fL MCH (25.0-34.0) pg MCHC (32.0-36.0) g/dL RDW Std Deviation (36.4-46.3) fL RDW Coeff of Sascha (11.5-14.5) % Plt Count (130-400) K/uL MPV (9.4-12.4) fL Immature Gran % (Auto) % Neut % (Auto) % Lymph % (Auto) % [place] % (Auto) % Eos % (Auto) % Baso % (Auto) % Neut # (Auto) (1.40-6.50) K/uL Lymph # (Auto) (1.20-3.40) K/uL [place] # (Auto) (0.11-0.59) K/uL Eos # (Auto) (0.00-0.50) K/uL Baso # (Auto) (0.00-0.20) K/uL Immature Gran # (Auto) (0.01-0.20) K/uL Absolute Nucleated RBC (0.00-0.12) K/uL Nucleated RBC % (auto) % Polychromasia Anisocytosis PT (9.0-12.0) Seconds INR (0.9-1.1) APTT (21-31) Seconds PTT Ratio Heparin Anti-Xa, Unfract (0.3-0.7) IU/ml Sodium (136-145) mmol/L Potassium (3.5-5.1) mmol/L Chloride (98-107) mmol/L Carbon Dioxide (21-32) mmol/L Anion Gap (3-11) BUN (6-23) mg/dl Creatinine (0.6-1.4) mg/dl Est Cr Clr Drug Dosing ml/min eGFR BUN/Creatinine Ratio (10-20) Glucose (70-99(Fasting)) mg/dl POC Glucose 137 H (70-99) mg/dl Calcium (8.6-10.3) mg/dl Iron (35-175) mcg/dl TIBC (250-450) mcg/dl Transferrin (200-360) mg/dl Transferrin % Sat (20-50) % Ferritin (8-388) ng/ml Total Bilirubin (0.2-1.0) mg/dl AST (13-39) U/L ALT (7-52) U/L Alkaline Phosphatase (34-104) U/L Troponin I High Sens (0-20) pg/ml Total Protein (6.0-8.3) gm/dl Albumin (3.4-5.0) gm/dl Globulin (2.5-4.0) gm/dl Albumin/Globulin Ratio (0.9-2) Lipase (11-82) U/L Vitamin B12 (180-914) pg/ml Folate (>5.38) ng/ml TSH (0.300-4.500) uIu/ml Stool Occult Bld Scrn (Negative) Blood Type O Positive Blood Type Recheck O Positive Antibody Screen NEGATIVE Crossmatch See Detail 11/13/24 Range/Units 15:00 WBC 20.65 H (4.8-10.8) K/ul RBC 3.00 L (4.70-6.10) M/uL Hgb 7.5 L (14.0-18.0) g/dl Hct 24.8 L (42.0-52.0) % MCV 82.7 (80.0-100.0) fL MCH 25.0 (25.0-34.0) pg MCHC 30.2 L (32.0-36.0) g/dL RDW Std Deviation 49.5 H (36.4-46.3) fL RDW Coeff of Sascha 17.2 H (11.5-14.5) % Plt Count 234 (130-400) K/uL MPV 11.1 (9.4-12.4) fL Immature Gran % (Auto) 1.3 % Neut % (Auto) 87.5 % Lymph % (Auto) 4.7 % [place] % (Auto) 5.2 % Eos % (Auto) 1.0 % Baso % (Auto) 0.3 % Neut # (Auto) 18.08 H (1.40-6.50) K/uL Lymph # (Auto) 0.98 L (1.20-3.40) K/uL [place] # (Auto) 1.07 H (0.11-0.59) K/uL Eos # (Auto) 0.20 (0.00-0.50) K/uL Baso # (Auto) 0.06 (0.00-0.20) K/uL Immature Gran # (Auto) 0.26 H (0.01-0.20) K/uL Absolute Nucleated RBC (0.00-0.12) K/uL Nucleated RBC % (auto) % Polychromasia 2+ Anisocytosis Present PT 11.3 (9.0-12.0) Seconds INR 1.0 (0.9-1.1) APTT 24 (21-31) Seconds PTT Ratio 0.9 Heparin Anti-Xa, Unfract (0.3-0.7) IU/ml Sodium 133 L (136-145) mmol/L Potassium 4.2 (3.5-5.1) mmol/L Chloride 102 (98-107) mmol/L Carbon Dioxide 21 (21-32) mmol/L Anion Gap 10 (3-11) BUN 26 H (6-23) mg/dl Creatinine 0.78 (0.6-1.4) mg/dl Est Cr Clr Drug Dosing 88.4 ml/min eGFR 94.75 BUN/Creatinine Ratio 33.3 H (10-20) Glucose 243 H (70-99(Fasting)) mg/dl POC Glucose (70-99) mg/dl Calcium 8.5 L (8.6-10.3) mg/dl Iron 24 L (35-175) mcg/dl TIBC 333 (250-450) mcg/dl Transferrin 238 (200-360) mg/dl Transferrin % Sat 7 L (20-50) % Ferritin 77.5 (8-388) ng/ml Total Bilirubin 0.7 (0.2-1.0) mg/dl AST 65 H (13-39) U/L ALT 60 H (7-52) U/L Alkaline Phosphatase 470 H (34-104) U/L Troponin I High Sens 11.3 (0-20) pg/ml Total Protein 5.9 L (6.0-8.3) gm/dl Albumin 3.4 (3.4-5.0) gm/dl Globulin 2.5 (2.5-4.0) gm/dl Albumin/Globulin Ratio 1.4 (0.9-2) Lipase 31 (11-82) U/L Vitamin B12 (180-914) pg/ml Folate (>5.38) ng/ml TSH 1.793 (0.300-4.500) uIu/ml Stool Occult Bld Scrn (Negative) Blood Type Blood Type Recheck Antibody Screen Crossmatch PG Care Time/CCT Total # of Minutes Spent Total Time Spent with Patient: Total time spent is greater than 50% in coordination of care (as documented) at patient's floor/unit and/or counseling patient: Coding Level of Care Code 64250 INT INP/OBS CARE MIN Diagnoses Anemia D64.9 Anemia type: other cause (1) Anemia Anemia type: other cause
[2024-11-14] MEDS: PANTOprazole 40 MG in DEXTROSE 5% MINI-B 100 ML IV SCH (14:24)
--- NOTE | 2024-11-14 16:24 | CT Scan Report ---
INDICATION: Abdominal pain. COMPARISON: CT from 11/06/2024. TECHNIQUE: Axial CT images of the abdomen and pelvis were obtained without IV contrast administration. Coronal and sagittal reformations were reviewed. FINDINGS: Visualized lung bases appear unremarkable. No significant change in pancreatic or hepatic masses. Splenomegaly. No hydronephrosis or renal calculus. Mild amount retained colonic stool. No evidence of bowel obstruction/colitis/appendicitis. No free air. No drainable fluid collection. Fat-containing bilateral inguinal hernias. Small amount of fluid in the pelvis. Mild prostate gland enlargement. No acute osseous abnormality evident. IMPRESSION: Small amount of fluid in the pelvis. No significant change in pancreatic or hepatic masses. Splenomegaly. Bilateral fat-containing inguinal hernias. Electronically signed by Raz Rand 11-14-2024 4:24 PM
--- NOTE | 2024-11-14 17:34 | Electrocardiogram Report ---
Test Reason : Blood Pressure : */* mmHG Vent. Rate : 84 BPM Atrial Rate : 84 BPM P-R Int : 148 ms QRS Dur : 126 ms QT Int : 418 ms P-R-T Axes : 55 91 45 degrees QTcB Int : 493 ms Normal sinus rhythm Right bundle branch block Abnormal ECG No previous ECGs available Confirmed by Alfredo Chambers ([id number]) on 11/14/2024 5:33:39 PM Referred By: Linnea Booker Confirmed By: Alfredo Chambers
--- NOTE | 2024-11-14 17:54 | Discharge Summary ---
Date of Service November 14, 2024 Admission HPI Per Admitting Provider 74 year old male with PMH significant for DMII, dyslipidemia, HTN, CAD s/p stent, recently discovered pancreatic and liver masses, and anemia who presented to the ED today by referral of his PCP. Patient reports that he recently started feeling tired and dizzy with exertion, which prompted him to seek care at [facility]. 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 He was also found to have a hemoglobin of 6.1 for which he received two units of PRBCs and an iron infusion. He then had follow up with his PCP on 11/12 where he was ordered follow up bloodwork, a PET scan, and venous duplex of RUE for irritation at a previous peripheral IV site. His bloodwork revealed a drop in hemoglobin to 8 and his duplex revealed a DVT in his RUE for which he was prescribed lovenox. Patient's went to [facility] the lovenox today but the pharmacy did not have enough and at the same time, he was informed that he was scheduled for a liver biopsy at [facility] on 11/15 and was instructed to hold anticoagulation. Due to his hemoglobin and feeling weak/tired, his PCP recommended he seek care in our ED. Patient notes that his symptoms came on rather quickly over the last few weeks as he was previously active with walking and golfing. He endorses a weight loss of 10 lbs over 7 months but that is complicated by use of Trulicity. He also reports dull abdominal pain, notable when he drinks coffee in the morning. He denies headaches, fevers, chills, chest pain, N/V/D, hematuria, hematochezia. He reports he gets a colonoscopy every 3 years due to polyps, but notes that none have come back problematic. He notes that his father had lung cancer (was a smoker) and mother had breast and bone cancer. Admission Exam Per Admitting Provider Vitals signs as noted above General Appearance:Moderately built and nourished, no apparent distress Head: normocephalic, Atraumatic Eyes: normal inspection, EOMI,+ pallor Neck: supple, Trachea midline Respiratory/Chest: Normal breath sounds, CTA, No accessory muscle use Cardiovascular: S1, S2, No murmur Abdomen/GI:Soft, Non tender, Bowel sounds present Extremities/Musculoskeletal:normal inspection, no edema , R elbow mildly tender, swollen at IV site Neurologic/Psych:AAOX3, grossly no focal neurological deficits Skin: normal color, warm Principal Diagnosis Pancreatic and liver mass, splenic vein thrombosis, right basilic vein thrombosis, GI bleed Discharge Exam Lying in bed without any acute distress Constitutional well developed, well nourished, + ill appearing and average body habitus Eyes PERRL, conjunctivae normal, anicteric sclerae ENMT external ear and nose normal, oropharynx normal Neck trachea midline, no thyromegaly Respiratory no respiratory distress Auscultation: lungs clear to auscultation bilaterally Cardiovascular Rate/Rhythm: regular rate and regular rhythm; not tachycardic Heart Sounds: normal S1 and normal S2; no murmur Extremities: no edema Gastrointestinal (Abdomen) Inspection/Auscultation: normal bowel sounds; abdomen not distended Percussion/Palpation: abdomen soft; abdomen nontender Neurologic normal touch/pain/proprioception and moves all extremities; no focal motor deficits Psychiatric A+Ox3, euthymic affect Lymphatic no cervical or axillary lymphadenopathy Discharge Data Allergies Allergy/AdvReac Type Severity Reaction Status Date / Time metformin AdvReac Severe SEVERE Verified 11/13/24 17:04 DIARRHEA Consultations 11/13/24 17:02 ED Decision to Admit Stat 11/14/24 13:45 Consult Gastroenterology Routine Ordered Studies 11/14/24 14:48 CT Abd and Pelvis [CT abd pelvis wo con] Routine Hospital Course (1) Anemia: (2) Weakness: (3) Pancreatic mass: (4) Liver mass: (5) Deep vein thrombosis (DVT) of right upper extremity: (6) Type 2 diabetes mellitus: (7) Hypertension: (8) Dyslipidemia: (9) Coronary artery disease: Plan 74 year old male with PMH significant for DMII, dyslipidemia, HTN, CAD s/p stent, recently discovered pancreatic and liver masses, and anemia who presented to the ED today by referral of his PCP. Anemia- likely secondary to GI bleed Recently he was in the [facility] with history of exertional tiredness and dizziness and noted to have hemoglobin of 6.1 and received 2 units of blood transfusion Denies any history of blood vomiting or any black stool prior to admission Hgb 7.5 and patient symptomatic with weakness Iron studies revealed iron 24, TIBC 333, transferrin 238, transferrin sat 7% Vitamin B12 and folate levels are normal Received 2 units of blood and [facility] and also 1 unit in the emergency room Received Venofer 300mg IV x1 Noted to have black stool this morning and that was positive for blood Hemoglobin remains stable at 7.8 as of this morning Noted to have engorged gastric vein on CAT scan of the abdomen pelvis as well Will ask for GI evaluation for possible EGD Repeat CT of the abdomen pelvis did not show any internal bleeding but showed pancreatic and hepatic lesions as before Transfer to [facility] Appreciate GI input and recommendationwill need EGD, EUS for further evaluation of pancreatic mass [facility] will need GI consult for proposed EUS tomorrow Discussed with that transfer service-Dr. 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 of pancreatic tail with splenic venous thrombus concerning for metastatic disease involving the liver Patient was scheduled for admission at [facility] on 11/[address] Hitchcock discussed with Niraj Kennedy of Radiology regarding coordination of liver biopsy while inpatient Recommend contacting Alfred Campo tomorrow am and discuss scheduling and also timing of IV heparin discontinuation Discussed with the IR provider and IR cannot be done today as he will need off of aspirin for at least 5 days He took his last aspirin on Tuesday night IR can be done as an outpatient on of this month Discussed with oncologist/pamphlet distributor Dr. Bo and updated about patient's condition Repeat CT of the abdomen pelvis did not show any internal bleeding but it showed unchanged pancreatic and hepatic lesions DVT RUE Outpatient duplex revealed DVT of right basilic vein Prescribed lovenox outpatient but patient never picked it up Started on IV heparin in ED and continuing DMII A1C 8.1 in September 2024 On Jardiance, repaglinide, insulin glargine at home - holding while inpt SSI insulin while inpt CAD s/p stent Hypertension Dyslipidemia Continue imdur, losartan, metoprolol, atorvastatin Holding baby aspirin pending possible liver biopsy tomorrow Patient holding amlodipine due to low BPs at home Continue to hold amlodipine Monitor BPs and consider restarting amlodipine if elevated Has been remains on hold DVT Prophylaxis: IV Heparin *hold in am in preparation for liver biopsy Code Status: FULL CODE - As per discussion at bedside with the patient. PCP: Dr Linnea Booker Disposition: admit to [facility] Discussed with the patient and the and the patient will be transferred [facility] to [facility] Total Time Total Time Spent Total Time Spent (In Minutes): 45 Minutes Discharge Plan Discharge Items Patient Disposition: Transfer [facility] Reason For Visit: REFERRAL BY PCP Discharge Diagnosis: Pancreatic and liver mass, splenic vein thrombosis, right basilic vein thrombosis, GI bleed Condition on Discharge: Fair Activity: Resume your previous activity Non-emergency contact: Primary Care Provider Call non-emergency contact if: you have any medication questions and your symptoms worsen Follow-up/Referrals: Linnea Booker MD [Primary Care Provider] - Diet: Carb Consistent or DM2 Diet Comment: n.p.o. after midnight Addtl Attending Provider Instructions: All of his inpatient medications were continued Current Inpatient Medications Acetaminophen (Acetaminophen 325 Mg Tab) 650 mg PO Q4H PRN PRN Reason: pain/fever Stop: 12/13/24 21:35 Atorvastatin Calcium (Atorvastatin 40 Mg Tab) 80 mg PO HS [facility] Stop: 12/13/24 21:35 Last Admin: 11/13/24 21:56 Dose: 80 mg Dextrose (Dextrose 50% 50 Ml Syringe) 25 - 50 ml IV UD PRN; Protocol PRN Reason: Hypoglycemia Protocol Stop: 12/13/24 18:28 Ferrous Sulfate (Ferrous Sulfate 325 Mg Tab) 325 mg PO QAM [facility] Stop: 12/14/24 08:59 Last Admin: 11/14/24 09:28 Dose: 325 mg Glucagon (Glucagon For Inj 1 Mg Vial) 1 mg SQ UD PRN; Protocol PRN Reason: Hypoglycemia Protocol Stop: 12/13/24 18:28 Glucose (Glucose 40% Gel 15 Gm Tube) 15 - 30 gm PO UD PRN; Protocol PRN Reason: Hypoglycemia Protocol Stop: 12/13/24 18:28 Glucose (Glucose 10 Tab/Tube) 4 - 8 tab PO UD PRN; Protocol PRN Reason: Hypoglycemia Protocol Stop: 12/13/24 18:28 Heparin Sodium/Dextrose (Heparin 06091 Unit/500 Ml D5w) 25,000 units in 500 mls @ 20 mls/hr IV .Q24H [facility]; Protocol Stop: 12/13/24 18:14 Last Titration: 11/14/24 13:55 Dose: 1,050 units/hr, 21 mls/hr Pantoprazole Sodium 40 mg/ (Dextrose) 100 mls @ 20 mls/hr IV Q5H [facility] Stop: 12/14/24 14:14 Pantoprazole Sodium 80 mg/ (Dextrose) 120 mls @ 480 mls/hr IV NOW ONE Stop: 11/14/24 14:05 Insulin Aspart (Insulin Aspart Per Unit Charge) 0 units SC ACHS [facility] Stop: 12/14/24 11:29 Last Admin: 11/14/24 12:32 Dose: 9 units Insulin Glargine (Lantus Per Unit Charge) [facility] Stop: 12/14/24 12:14 Last Admin: 11/14/24 12:32 Dose: 15 units Isosorbide Mononitrate (Isosorbide [place] Extended Rel 30 Mg Tabcr) [address] [facility] Stop: 12/14/24 08:59 Last Admin: 11/14/24 09:27 Dose: 30 mg Losartan Potassium (Losartan Potassium 50 Mg Tab) [address] [facility] Stop: 12/14/24 08:59 Last Admin: 11/14/24 09:27 Dose: 100 mg Metoprolol Succinate (Metoprolol Succ 25mg Ext Rel Tab) 12.[address] [facility] Stop: 12/14/24 08:59 Last Admin: 11/14/24 09:28 Dose: 12.5 mg Miscellaneous (Carbohydrates For Hypoglycemia ) 15 - 30 gm PO UD PRN PRN Reason: Hypoglycemia Protocol Stop: 12/13/24 18:28 Miscellaneous Information (Pharmacy Glycemic Mgmt Consult) 1 each N/A UD PRN PRN Reason: Consult Stop: 12/13/24 18:28 Polyethylene Glycol (Polyethylene (Miralax) 17 Gm Pack) 17 gm PO DAILY PRN PRN Reason: Constipation Stop: 12/13/24 21:35 Pending Studies at Discharge: No Stand-Alone Forms: [facility] Skilled Items Patient informed of condition?: Yes DNR: No Discharge Level of Care: Other Communicable Disease: No Discharge Prognosis: Stable Lines: Peripheral IV Urinary Catheter: No Medications and DC Order Prescriptions: Continued atorvastatin 80 mg tablet 80 mg PO HS repaglinide 2 mg tablet 4 mg PO AC isosorbide mononitrate 30 mg tablet extended release 24 hr 30 mg PO QAM amlodipine 5 mg tablet 5 mg PO HS aspirin [Ecotrin Low Strength] 81 mg Tablet,Delayed Release (Dr/Ec) 81 mg PO HS cephalexin 500 mg capsule 500 mg PO TID Rx Instructions: STARTED 11/13/24 FOR 10 DAYS ferrous sulfate 325 mg (65 mg iron) tablet 325 mg PO QAM nitroglycerin [Nitrostat] 0.4 mg Tablet, Sublingual 0.4 mg sublingual DIRECTED MDD 3 TABS. PRN (Reason: Chest Pain) metoprolol succinate 25 mg tablet extended release 24 hr 12.5 mg PO QAM losartan 100 mg tablet 100 mg PO QAM Jardiance 25 mg tablet 25 mg PO HS insulin glargine-yfgn 100 unit/mL (3 mL) insulin pen 18 unit SUBCUT QAM Discharge Orders: Discharge Order (Routine); Ordered 11/14/24 Ordered By: Elen Olvera Admission Data Admit Date/Time: 11/13/24 18:13 Attending Provider: Elen Olvera Admit Provider: Benjamin Martinez Primary Care Provider: Linnea Booker Other Providers: Benjamin Martinez; Anne-Marie Morrow; Devante Eric; Irais Baker; Wilma Jaramillo; Maryellen Craig; Sue Garcia; Crow Correia; Lei Rajan; Jeni Francois; Jordy Myers S; Meg Silveira; Lennie Hood; Deysi Andrade; Jada Huffman; Aleida Wooten; Talha Rojo; Sorin Brock; Sonia Das; Jesenia Kim Jr; Kole Velazquez; Jonny Pa; Gautam Rod; Bonifacio Mata; Loree Maradiaga; Antonio Clancy I; Nilam Reynolds; Dariusz Del Angel; Jaylon Argueta
[2024-11-14 20:17] LABS: ANTI-Xa, UFH(UnfractionatedHep 0.29 IU/ml (0.3-0.7)
[2024-11-14 23:02] VITALS: PULSE 60; TEMP 98.1; O2SAT 98
[2024-11-15 02:48] VITALS: BP 117/60
== END 2024-11-15 02:48 | disposition short-term general hospital (02) | DRG 378 ==
LOC: ED 14:47 → SUATTDRO 18:13 → 2N 18:13